=== PATIENT | female | born 1995 | race Caucasian/White ===

== ENCOUNTER 2020-04-11 09:41 | Outpatient (CLI) | payer OTHER, SELFPAY ==
[2020-04-11 10:35] LABS: Basophils Percent Auto 0.3 % (0.2-1.2); Eosinophils Absolute Auto 0.1 K/mm3 (0-0.3); Hematocrit 41.8 % (37.0-47.0); Hemoglobin 14.2 g/dL (12.0-15.0); Immature Granulocyte Absolute 0.03 K/mm3 (0.00-0.031); Immature Granulocyte Percent A 0.4 % (0-0.5); Lymphocytes Absolute Auto 2.19 K/mm3 (0.9-3.2); Lymphocytes Percent Auto 31.9 % (18.3-44.2); Mean Corpuscular Hemoglobin 29.1 pg (26-34); Mean Corpuscular Volume 85.7 fl (80-100); Mean Platelet Volume 11.2 fl (7.4-10.4); Monocytes Absolute Auto 0.5 K/mm3 (0.1-0.6); Monocytes Percent Auto 7.9 % (2.6-8.5); Neutrophils Percent Auto 57.5 % (45.5-73.1); Platelet Count Result 316 k/mm3 (150-375); Red Blood Count 4.88 M/mm3 (4.2-5.4); Red Cell Distribution Width 13.5 % (11.5-14.5); White Blood Count 6.9 K/mm3 (4.5-10.0)
[2020-04-11 10:48] LABS: Alanine Aminotransferase 20 U/L (4-35); Alkaline Phosphatase 75 U/L (38-126); Aspartate Amino Transferase 26 U/L (14-36); Bilirubin,Total 0.7 mg/dL (0.2-1.3); Blood Urea Nitrogen 15 mg/dL (7-17); Calcium 9.2 mg/dL (8.4-10.2); Carbon Dioxide 28 mmol/L (22-30); Chloride 106 mmol/L (98-107); Estimated Glomerular Filt Rate > 60; Glucose 97 mg/dL (65-105); Magnesium 1.7 mg/dL (1.6-2.3); Sodium 138 mmol/L (137-145)
[2020-04-11 11:17] LABS: Thyroid Stimulating Hormone 0.592 uIU/mL (0.465-4.680)
[2020-04-11 11:33] LABS: Hemoglobin A1C 5.2 % (<5.7)
[2020-04-11 12:09] LABS: Free T4 Free Thyroxine 1.33 ng/mL (0.78-2.19)
== END 2020-04-11 09:42 | disposition home or self-care (01) ==
LOC: ANHLAB 09:45
PROVIDERS: PCP Nurse Practitioner Family; Visit Provider Internal Medicine Cardiovascular Disease
DX: R55 Syncope and collapse (principal); R00.2 Palpitations
CPT/HCPCS: 36415; 80053; 83036; 83735; 84439; 84443; 85025

== ENCOUNTER 2020-06-10 07:46 | Outpatient (CLI) | payer OTHER, SELFPAY ==
--- NOTE | 2020-06-27 00:57 | WPDHOMESLEEP ---
Sleep Study - Home Date of Study: 06/10/20 Ordering Provider: Salvador Tuttle MD Interpreting Physician: Taisha Carlisle MD Home Sleep Study Type: Apnea Link Air Height: 1.45 m Weight: 82.1 kg Body Mass Index: 39.2 [place]: 17 Reason for Sleep Study Poor sleep, loud frequent snoring, excessive daytime sleepiness Sleep History Vonda Packer is a 24 year-old female with a history of syncope. She sleeps poorly at night. Even after sleeping a full night, she wakes up tired and is sleepy in the day. This is been going on for more than 2 years. She has a difficult time falling asleep, she wakes up throughout the night and she has a difficult time waking in the morning. She constantly snores and is constantly loud enough that others complain about it. She frequently has trouble sleep with the cold, rarely gasps for breath at night, occasionally has breathing problems at night observed by others. She constantly sweats excessively at night. She occasionally notices her heart pounding or beating her regularly at night. She frequently falls asleep during the day occasionally involuntarily but never while driving. She does not fall asleep during physical effort. She occasionally has loss of muscle tone with strong emotion. 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 She never feels paralyzed on waking or falling asleep. She frequently has vivid dreamlike scenes upon awakening or falling asleep. She is rarely afraid to go to sleep and rarely has nightmares. She frequently remembers her dreams. She constantly has racing thoughts. She occasionally feels sad, depressed or anxious. She occasionally has muscular tension. She frequently notices parts of her body jerking and she frequently kicks at night. She frequently has crawly and aching feelings in her legs. She occasionally has leg pain during the night, occasionally has morning jaw pain. She never grinds her teeth during sleep. She is not bothered by pain during the day and is not awakened by pain at night. She occasionally wakes up feeling stiff in the morning. She does not wake up with sore achy muscles but she frequently wakes up with pain in the neck and spine. She has headaches, palpitations, nightmares, and takes antacids regularly. Normal bedtime is 9:00 p.m. falling asleep within 10 minutes waking 3-4 times at night for brief episode, will look at the clock go back to sleep. She wakes in the morning at 6:30 a.m.. She is usually waking up in the middle of the night. On the weekend she stays up an hour later and wakes in the morning an hour later. She always snores, always has morning headaches, and she always has daytime sleepiness. She frequently has memory and concentration problems and frequently has sexual dysfunction. [facility] Past Medical History Medical History (Updated 06/27/20 @ 01:15 by Taisha Carlisle MD) Asthma Chest pain Heartburn Palpitation Syncope Surgical History Surgical History (Updated 06/27/20 @ 01:22 by Taisha Carlisle MD) S/P S/P tubal ligation Social History Social History (Updated 06/27/20 @ 01:11 by Taisha Carlisle MD) Smoking status: Never smoker Alcohol use details: none at present Medications multivitamin 1 daily omeprazole 40 mg daily Sleep Procedure This test was performed using 4 channel monitoring including respiratory effort channel snoring channel heart rate channel and oxygen saturation channel. This study was scored using [facility] guidelines. Sleep Architecture Not applicable for home sleep test. Respiratory Analysis the duration of the test is 9 hours 11 minutes. The apnea-hypopnea index is 0.5. Oximetry Data Oxygen desaturation index is 0.5. Lowest saturation is 93%. She had no apneas. She had 5 hypopneas. She had 5 desaturations and spent no time below 88%. Snoring Profile Snoring was occasional, 189 even
[2020-06-27 01:05] VITALS: BMI 39.2
== END 2020-06-10 07:47 | disposition home or self-care (01) ==
LOC: ANHCSM 07:46
PROVIDERS: PCP Nurse Practitioner Family; Visit Provider Internal Medicine Cardiovascular Disease
DX: G47.10 Hypersomnia, unspecified (principal)
CPT/HCPCS: 95806

== ENCOUNTER → 2020-10-21 01:18 | Outpatient (CLI) | payer OTHER, SELFPAY ==
[2020-10-21 18:28] LABS: SARS-CoV-2 RNA PCR Negative
== END ==
PROVIDERS: PCP Nurse Practitioner Family; Visit Provider Internal Medicine Critical Care Medicine
DX: R68.89 Other general symptoms and signs (principal); Z20.822 Contact with and (suspected) exposure to COVID-19
CPT/HCPCS: C9803; U0003; U0005

== ENCOUNTER 2020-10-23 09:04 | Outpatient (CLI) | payer OTHER, SELFPAY ==
--- NOTE | 2020-11-11 15:21 | WPDSLEEPSTUD ---
Sleep Study Date of Study: 10/23/20 Ordering Provider: Taisha Carlisle MD Interpreting Physician: Taisha Carlisle MD Sleep Study Type: Polysomnogram Height: 1.5 m Weight: 83.915 kg Body Mass Index: 37.3 Neck Circumference: 35.56 cm [place]: 20 Reason for Sleep Study Excessive daytime sleepiness, Vyvanse for ADHD Home sleep test 06/10/2020 negative for sleep disordered breathing, present now for basic study with MSLT Sleep History oVnda Packer is a 25-year-old female with severe excessive daytime sleepiness, even after a full night of sleep. She wakes up during the night, and she has difficulty waking in the morning. She frequently snores but rarely is it loud enough that others complain about it. She frequently awakens at night with heartburn, belching or coughing. She occasionally awakens from sleep feeling short of breath. She frequently has trouble sleep with a cold. She occasionally wakes up gasping for breath at night. She occasionally has breathing problems at night observed by others. She frequently sweats excessively at night. She occasionally notices her heart pounding or beating irregularly at night. She frequently falls asleep during the day, occasionally involuntarily. She has not fallen asleep while driving but has come close. She does not fall asleep while exerting physical effort. She does not have loss of muscle tone with strong emotion. She constantly has daytime difficulties due to excessive sleepiness. 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 She does not feel paralyzed on waking or falling asleep. She frequently has vivid dreamlike scenes upon awakening or falling asleep. She rarely is afraid to go to sleep. She occasionally has nightmares. She frequently remembers her dreams. She frequently has racing thoughts. She occasionally feels sad or depressed. She frequently has anxiety. She occasionally has muscular tension. She occasionally notices parts of her body jerking. She does not kick at night and does not have crawling or aching feelings in her legs at night. She does not have leg pain at night. She occasionally has morning jaw pain. She does not grind her teeth during sleep. She occasionally is bothered by pain during the day. She never is awakened by pain at night and never wakes up feeling stiff in the morning. She occasionally wakes up with sore achy muscles. She frequently wakes up with pain in the neck and spine. She has panic, memory problems, nightmares and headaches. She has ADHD, takes Vyvanse. Normal bedtime is 9:00 p.m. falling asleep within 10-15 minutes, typically waking 2-3 times. While awake she will get a drink and try to go back to sleep. It takes 5-10 minutes for her to return to sleep. She wakes in the morning at 6:30 a.m.. On the weekend she stays awake until 930 or 10:00 p.m., wakes at 7:30 a.m.. She estimates getting 7 hours of sleep She works a split shift, lives at home with her boyfriend and 2 kids. She takes naps in the afternoon or evening. A short nap is not refreshing. She is usually drowsy in the morning for 3 hours or longer. Habits: There are smoke tobacco. One caffeinated beverage a day. No alcohol or recreational drugs. 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
[2020-11-11 18:02] VITALS: BMI 37.3
--- NOTE | 2020-11-11 18:14 | WPDSLEEPSTUD ---
Sleep Study Date of Study: 10/24/20 Ordering Provider: Taisha Carlisle MD Interpreting Physician: Taisha Carlisle MD Sleep Study Type: Multiple Sleep Latency Test Height: 1.5 m Weight: 83.915 kg Body Mass Index: 37.3 Neck Circumference: 35.56 cm [place]: 20 Reason for Sleep Study Excessive daytime sleepiness Sleep History See sleep history on the basic nocturnal polysomnogram the night before this study. The patient had greater than 6 hours of sleep, AHI was 1.9, and she proceeded to this multiple sleep latency test per protocol. She stopped her Vyvanse 3 days prior to the test. 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 Nap 1 commenced at 7:41 a.m. Sleep onset 13:39. No REM occurred. Nap 1 was terminated at 8:10 a.m. The patient said that sleep did not occur. The patient reported no dreaming. Nap 2 commenced at 9:41 a.m. Sleep onset 7:56. No REM occurred. Nap 2 was terminated at 10:04 a.m. The patient said that sleep occurred. The patient reported no dreaming. Nap 3 commenced at 11:41 a.m. Sleep onset 5:22. No REM occurred. Nap 3 was terminated at 12:02 p.m. The patient said that sleep occurred. The patient reported dreaming. Nap 4 commenced at 1:41 p.m. Sleep onset 12:57. No REM occurred. Nap 4 was terminated at 2:09 p.m. The patient said that sleep did not occur. The patient reported no dreaming. Nap 5 commenced at 3:41 p.m. Sleep did not occur. Sleep latency 20 min. Nap 5 was terminated at 4:01 p.m. The patient said that sleep did not occur. The patient reported no dreaming. The mean sleep latency is 11 min 59 seconds, normal sleep latency. The patient slept on 4 of 5 naps. The patient perceived sleep on 2 of 5 naps and reported dreaming on nap 3. She had no REM sleep on any nap. Sleep Architecture NA Respiratory Analysis NA Arousals NA Periodic Limb Movements NA Oximetry Data NA Snoring Profile NA Cardiac Profile NA EEG Profile NA Assessment and Plan Assessment and Plan (1) Hypersomnolence: Code(s): G47.10 - Hypersomnia, unspecified Status: Acute Assessment and Plan: Patient has hypersomnolence with a normal multiple sleep latency test. The mean sleep latency is 11 minutes 59 seconds. She had sleep on 4/5 naps without sleep onset REM periods. This test does not support of diagnosis of narcolepsy or idiopathic hypersomnolence. She is encouraged to allow time for 7-8 hours of sleep at night, keep a regular schedule, get daytime exercise and maintain a normal BMI. Elevated body mass index can be associated with hypersomnolence in the absence of sleep disordered breathing.
[2020-11-11 18:27] VITALS: BMI 37.3
== END 2020-10-23 09:05 | disposition home or self-care (01) ==
LOC: ANHCSM 09:04
PROVIDERS: PCP Nurse Practitioner Family; Visit Provider Internal Medicine Critical Care Medicine
DX: G47.10 Hypersomnia, unspecified (principal)
CPT/HCPCS: 95805; 95810

== ENCOUNTER 2020-12-27 09:47 | Emergency (ER) | payer OTHER, SELFPAY ==
[2020-12-27 09:53] VITALS: BP 138/88; PULSE 87; RESP 16; TEMP 36.6; O2SAT 98
[2020-12-27 10:00] VITALS: PULSE 90; RESP 16; O2SAT 99
[2020-12-27 10:01] VITALS: BP 122/68; PULSE 79; RESP 20; O2SAT 98
[2020-12-27 10:24] VITALS: PULSE 77; RESP 18; O2SAT 100
--- NOTE | 2020-12-27 10:26 | ED.GENADULT ---
HPI - General Adult General Chief complaint: Head Injury <Orion Corey PA-C - Last Filed: 12/27/20 10:34> Stated complaint: head injury <Orion Corey PA-C - Last Filed: 12/27/20 10:34> Time Seen by Provider: 12/27/20 10:08 <Orion Corey PA-C - Last Filed: 12/27/20 10:34> Source: patient <Orion Corey PA-C - Last Filed: 12/27/20 10:34> Mode of arrival: ambulatory <Orion Corey PA-C - Last Filed: 12/27/20 10:34> Limitations: no limitations <Orion Corey PA-C - Last Filed: 12/27/20 10:34> History of Present Illness HPI narrative: Patient is a 25-year-old female who was struck in the head with a metal spring from a attic stairway that came loose striking her on the parietal scalp patient noted that she did pass out but probably was related to what sounds like a vagal response. Patient has since had mild headache that responds well with ibuprofen. Today had some tingling of the lips which has resolved was instructed to come in for evaluation. Patient presents with normal gait no distress denies anticoagulant use notes minimal headache at this time <Orion Corey PA-C - Last Filed: 12/27/20 10:34> Related Data Home medications: Home Medications Medication Instructions Recorded Confirmed ibuprofen 800 mg tablet 800 mg PO TID 08/27/20 lisdexamfetamine 10 mg capsule 10 mg PO DAILY 08/27/20 <Orion Corey PA-C - Last Filed: 12/27/20 10:34> Allergies/adverse reactions: Allergies Allergy/AdvReac Type Severity Reaction Status Date / Time phentermine Allergy Unknown Verified 12/27/20 10:01 <Orion Corey PA-C - Last Filed: 12/27/20 10:34> Review of Systems Review of Systems: All systems reviewed & are unremarkable except as noted in HPI and below <Orion Corey PA-C - Last Filed: 12/27/20 10:34> PMFSH Past Medical History Medical History: Medical History ADHD Asthma Chest pain Heartburn Migraine Palpitation Second degree AV block Syncope <Orion Corey PA-C - Last Filed: 12/27/20 10:34> Surgical History Surgical History: Surgical History S/P S/P tubal ligation <Orion Corey PA-C - Last Filed: 12/27/20 10:34> Social History Social History: Social History Social History: some history of marijuana Smoking status: Never smoker Alcohol intake: never 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 HEAD: Normocephalic, atraumatic. No deformity on palpation EYES: PERRLA and EOMI. ENT: Nares clear, no rhinorrhea or epistaxis. Mucous membranes moist. NECK: Supple. No adenopathy or masses. CHEST: Clear to auscultation. No respiratory distress. No wheezes rales or rhonchi HEART: Regular rate and rhythm. No murmur heard. EXTREMITIES: Normal range of motion. No edema. No cervical spine tenderness SKIN: Warm, dry, no rash. NEURO: No focal deficits. Alert and oriented x3. Cranial nerves II through XII grossly intact. Normal speech PSYCH: Normal mood and affect. <Orion Corey PA-C - Last Filed: 12/27/20 10:34> Course Course Emergency Course: Patient in the room no distress aware of case findings treatment plan and diagnosis agreeing to follow-up as instructed or to return if symptoms worsen or concerns patient's injury seems minor in nature she is in the room in no distress normal mentation normal speech moves all extremities without difficulty denies any other complaints and is felt appropriate for outpatient reevaluation provided with reasons to return ABCs and vital signs intact and stable <Orion Corey PA-C
[2020-12-27 10:30] VITALS: PULSE 76; RESP 18; O2SAT 100
[2020-12-27 10:31] VITALS: BP 122/75; PULSE 80; RESP 17; O2SAT 100
== END 2020-12-27 10:46 | disposition home or self-care (01) ==
LOC: ANHED 10:35
PROVIDERS: Emergency Provider General Practice; PCP Nurse Practitioner Family
DX: S09.90XA Unspecified injury of head, initial encounter (principal); F90.9 Attention-deficit hyperactivity disorder, unspecified type; J45.909 Unspecified asthma, uncomplicated; W22.8XXA Striking against or struck by other objects, initial encounter
CPT/HCPCS: 99283

== ENCOUNTER → 2021-02-01 06:28 | Outpatient (CLI) | payer OTHER, SELFPAY ==
[2021-02-04 13:07] LABS: SARS-CoV-2 RNA PCR Negative
== END ==
PROVIDERS: PCP Nurse Practitioner Family; Visit Provider Nurse Practitioner Family
DX: Z20.822 Contact with and (suspected) exposure to COVID-19 (principal); R06.00 Dyspnea, unspecified
CPT/HCPCS: C9803; U0003; U0005

== ENCOUNTER 2021-08-25 12:51 | Outpatient (CLI) | payer OTHER, SELFPAY ==
--- NOTE | ~2021-08-25 | XR_ITS ---
EXAMINATION: XR chest 2V 08/25/2021 13:15 INDICATION: Preop. Morbid obesity. Gastric bypass surgery. PROCEDURE: 2 view chest COMPARISON: 01/13/2018 FINDINGS: The lungs are clear. The cardiomediastinal silhouette is within normal limits. There are no pleural effusions. There is no pneumothorax suspected. IMPRESSION: 1: NO ACUTE CARDIOPULMONARY DISEASE. Reviewed, dictated and finalized at location A. DOWN OPERATOR
== END 2021-08-25 12:52 | disposition home or self-care (01) ==
PROVIDERS: PCP Nurse Practitioner Family
DX: Z01.818 Encounter for other preprocedural examination (principal)
CPT/HCPCS: 71046

== ENCOUNTER 2022-01-25 12:09 | Emergency (ER) | payer OTHER, SELFPAY ==
--- NOTE | 2022-01-25 12:18 | ED.FEMALEGU ---
HPI - Female Genitourinary General Chief complaint: Urogenital-Female Stated complaint: uti complaint,nausea Time Seen by Provider: 01/25/22 12:43 Source: patient and RN notes reviewed Mode of arrival: ambulatory Limitations: no limitations History of Present Illness HPI Narrative: 26-year-old female presents with concern for dysuria, nausea, suprapubic pain, low back pain, decreased urination, pain with sex, right low back pain, sweats, thick discolored vaginal discharge, nausea and 4 episodes of vomiting. Reports symptoms started yesterday. She denies fever, chills. Denies abdominal pain or diarrhea MD elicited complaint: dysuria and vaginal discharge Related Data Home Medications Medication Instructions Recorded Confirmed L. gasseri-B. bifidum-B longum 1 cap PO DAILY 01/25/22 01/25/22 [[facility] [employer] [facility]] docusate calcium 1 mg PO DAILY 01/25/22 01/25/22 ergocalciferol (vitamin D2) 1,250 mcg WEEKLY 01/25/22 01/25/22 qwudkvsc-qde-lewk-vitamin K [Adult 1 tablet PO DAILY 01/25/22 01/25/22 Multivitamin with Iron] omeprazole [Prilosec] 40 mg PO DAILY 01/25/22 01/25/22 Allergies Allergy/AdvReac Type Severity Reaction Status Date / Time latex Allergy Rash Verified 01/25/22 12:44 phentermine Allergy Unknown Verified 01/25/22 12:44 Review of Systems Review of Systems: CONSTITUTIONAL: Reports malaise, sweats. Denies chills, fever. CARDIOVASCULAR: Denies chest pain, palpitations, or edema. RESPIRATORY: Denies cough or dyspnea. GASTROINTESTINAL: Denies abdominal pain, diarrhea. Reports nausea, vomiting, GENITOURINARY: Reports dysuria, urgency, suprapubic pressure, right low back pain, abnormal vaginal discharge, dyspareunia SKIN: Denies rash or itching. MUSCULOSKELETAL: Reports right low back pain. Denies myalgia. 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 There is no relevant family history pertinent to the presenting complaint Exam Narrative: GENERAL: Well-appearing, well-nourished, and in no acute distress. HEAD: Normocephalic. EYES: PERRLA, conjunctivae clear. NECK: Supple. No lymphadenopathy CHEST: Clear to auscultation. No respiratory distress. HEART: Regular rate and rhythm. ABDOMEN: Soft, nontender upon palpation, nondistended, normal active bowel sounds, no palpable or pulsatile masses, no guarding. No CVA tenderness SKIN: Warm, dry, no rash. NEURO: Alert and oriented x3. PSYCH: Normal mood and affect : External Female Exam: normal external appearance Speculum Exam - Vagina: normal appearance of the vagina and abnormal vaginal discharge white and malodorous Speculum Exam - Cervix: normal appearance of the cervix Bimanual exam- vagina & uterus: normal bimanual exam Bimanual Exam- Adnexa, other: normal adnexae Course Course Emergency Course: Discussed UA findings with patient, exam findings with patient. Discussed possible diagnoses, will treat for potential BV and potential UTI while pending cultures of vaginal discharge and urine. Advised patient to follow-up with her kick press setter for further evaluation Patient is aware of diagnosis, understands and agrees to treatment plan. Anticipatory guidance given. Patient agrees to follow-up as directed and i
[2022-01-25 12:24] VITALS: BP 118/70; PULSE 76; RESP 18; TEMP 36.6; O2SAT 100
== END 2022-01-25 13:09 | disposition home or self-care (01) ==
PROVIDERS: Emergency Provider Nurse Practitioner; PCP Nurse Practitioner Family
DX: N89.8 Other specified noninflammatory disorders of vagina (principal); R30.0 Dysuria; J45.909 Unspecified asthma, uncomplicated; R12 Heartburn
CPT/HCPCS: 81003; 87070; 87086; 87088; 99214; G0463

== ENCOUNTER 2022-07-03 10:51 | Emergency (ER) | payer OTHER, SELFPAY ==
[2022-07-03 10:58] VITALS: BP 107/69; PULSE 96; RESP 16; TEMP 37.4; O2SAT 99
--- NOTE | 2022-07-03 11:21 | ED.FEMALEGU ---
HPI - Female Genitourinary General Chief complaint: Urogenital-Female Stated complaint: Female Urogenital Time Seen by Provider: 07/03/22 11:21 Source: patient and RN notes reviewed Mode of arrival: ambulatory Limitations: no limitations History of Present Illness HPI Narrative: 26 year female presents for complaint of burning with urination and urinary frequency for the last 3 days. Also started with thick milky white discharge today. She endorses about one week ago she had suprapubic tenderness that radiated to the low back, and pelvic area swelling where she felt that the cervix was going to fall out. Endorses chronic irregular vaginal bleeding, history of tubal ligation. LMP 2 weeks. She denies concern for STD, however she says she cannot be certain. She denies vaginal itching, skin lesions, nausea, vomiting, abdominal pain, flank pain, fevers or chills. Patient underwent gastric bypass 6 months ago, lost 125lbs. Related Data Home Medications Medication Instructions Recorded Confirmed Lactobacills gasseri-Bifidobac 1 cap PO DAILY 01/25/22 01/25/22 bifidum,longum 1.5 billion cell capsule ([employer]) docusate calcium 50 mg capsule 1 mg PO DAILY 01/25/22 01/25/22 ergocalciferol (vitamin D2) 1,250 1,250 mcg WEEKLY 01/25/22 01/25/22 mcg (50,000 unit) capsule multivitamin [id number] 1 tablet PO DAILY 01/25/22 01/25/22 fumarate 18 mg-vitamin K 25 mcg tablet omeprazole 40 mg capsule,delayed 40 mg PO DAILY 01/25/22 01/25/22 release Allergies Allergy/AdvReac Type Severity Reaction Status Date / Time latex Allergy Rash Verified 01/25/22 12:44 phentermine Allergy Unknown Verified 01/25/22 12:44 Review of Systems Review of Systems: CONSTITUTIONAL: Denies body aches, fever, chills, or sweats. CARDIOVASCULAR: Denies chest pain, palpitations, or edema. RESPIRATORY: Denies cough or dyspnea. GASTROINTESTINAL: Denies abdominal pain, nausea, vomiting, or diarrhea. GENITOURINARY: Reports dysuria, frequency, denies urgency, hematuria, flank pain SKIN: Denies rash, itching, or wounds. MUSCULOSKELETAL: Denies back pain or myalgia. 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 Please see nursing chart for further information. There is no relevant family history pertinent to the presenting complaint Exam Narrative: GENERAL: Well-appearing ENT: Mucous membranes pink and moist. CHEST: No respiratory distress. Clear to auscultation. HEART: Regular rate and rhythm. ABDOMEN: Soft, nontender, nondistended, normal active bowel sounds. No CVA tenderness SKIN: Warm, dry, no rash. PSYCH: Normal affect. Course Course Emergency Course: Patient is aware of diagnosis, understands and agrees to treatment plan. Anticipatory guidance given. Patient agrees to follow-up as directed and is aware of reasons to seek care at the emergency department. Portions of this record may have been created with voice recognition software Level of Care: Express Care Visit Vital Signs Vital signs: Vital Signs Temperature 99.3 F 07/03/22 10:58 Pulse Rate 96 07/03/22 10:58 Respiratory Rate 16 07/03/22 10:58 Blood Pressure 107/69 07/03/22 10:58 Pulse Oximetry 99 07/03/22 10:58 Oxygen De
== END 2022-07-03 11:39 | disposition home or self-care (01) ==
PROVIDERS: Emergency Provider Nurse Practitioner Family; PCP Nurse Practitioner Family
DX: N39.0 Urinary tract infection, site not specified (principal); J45.909 Unspecified asthma, uncomplicated
CPT/HCPCS: 81003; 87086; 87491; 87591; 87661; 99214; G0463

== ENCOUNTER 2022-09-03 08:30 | Outpatient (CLI) | payer OTHER, SELFPAY ==
[2022-09-03 09:16] LABS: Basophils Percent Auto 0.7 % (0.2-1.2); Eosinophils Absolute Auto 0.1 K/mm3 (0-0.3); Eosinophils Percent Auto 1.4 % (0-4.4); Hematocrit 41.5 % (37.0-47.0); Hemoglobin 13.5 g/dL (12.0-15.0); Immature Granulocyte Absolute 0.02 K/mm3 (0.00-0.031); Immature Granulocyte Percent A 0.4 % (0-0.5); Lymphocytes Percent Auto 29.8 % (18.3-44.2); Mean Corpuscular HGB Conc 32.5 g/dl (32-36); Mean Corpuscular Hemoglobin 29.5 pg (26-34); Mean Corpuscular Volume 90.6 fl (80-100); Mean Platelet Volume 11.5 fl (7.4-10.4); Monocytes Absolute Auto 0.4 K/mm3 (0.1-0.6); Monocytes Percent Auto 6.7 % (2.6-8.5); Neutrophils Absolute Auto 3.5 K/mm3 (1.3-6.7); Platelet Count Result 251 k/mm3 (150-375); Red Blood Count 4.58 M/mm3 (4.2-5.4); Red Cell Distribution Width 13.9 % (11.5-14.5); White Blood Count 5.7 K/mm3 (4.5-10.0)
[2022-09-03 09:21] LABS: Alanine Aminotransferase 25 U/L (6-35); Albumin Level 4.2 g/dL (3.5-5.1); Alkaline Phosphatase 46 U/L (38-126); Anion Gap 6 mmol/L (8-16); Aspartate Amino Transferase 27 U/L (14-36); Bilirubin,Total 1.5 mg/dL (0.2-1.3); Blood Urea Nitrogen 14 mg/dL (7-17); Calcium 8.9 mg/dL (8.4-10.2); Carbon Dioxide 28 mmol/L (22-30); Chloride 105 mmol/L (98-107); Cholesterol 149 mg/dL (0-200); Estimated Glomerular Filt Rate > 60; Glucose 85 mg/dL (65-110); HDL Direct 54 mg/dL; Magnesium 1.8 mg/dL (1.6-2.3); Phosphorus 4.2 mg/dL (2.5-4.5); Potassium 4.1 mmol/L (3.4-5.0); Sodium 139 mmol/L (137-145); Triglycerides 84 mg/dL (<150)
[2022-09-03 09:32] LABS: LDL Cholesterol Direct 55 mg/dL; Prealbumin 19.4 mg/dL (17.6-36.0)
[2022-09-03 09:45] LABS: Vitamin D 25 Hydroxy 45.2 ng/mL
[2022-09-03 10:15] LABS: Iron 95 ug/dL (37-170); Percent Iron Saturation 34 % (20-50)
[2022-09-07 07:21] LABS: Vitamin B1 26 nmol/L (8-30)
== END 2022-09-03 08:31 | disposition home or self-care (01) ==
LOC: ANHLAB 08:35
PROVIDERS: PCP Nurse Practitioner Family
DX: Z01.818 Encounter for other preprocedural examination (principal); K90.9 Intestinal malabsorption, unspecified; Z98.84 Bariatric surgery status; E61.1 Iron deficiency; Z86.39 Personal history of other endocrine, nutritional and metabolic disease
CPT/HCPCS: 36415; 80053; 80061; 82306; 82607; 82728; 82746; 83540; 83550; 83735; 83970; 84100; 84134; 84425; 85025

== ENCOUNTER 2022-09-08 15:56 | Outpatient (CLI) | payer OTHER, SELFPAY ==
[2022-09-08 17:53] LABS: Transferrin 235 mg/dL (206-381)
== END 2022-09-08 15:57 | disposition home or self-care (01) ==
PROVIDERS: PCP Nurse Practitioner Family; Referring Provider Nurse Practitioner Family
DX: E61.1 Iron deficiency (principal); K90.9 Intestinal malabsorption, unspecified; Z98.84 Bariatric surgery status; Z86.39 Personal history of other endocrine, nutritional and metabolic disease
CPT/HCPCS: 36415; 84466

== ENCOUNTER 2022-11-21 19:21 | Emergency (ER) | payer OTHER, SELFPAY ==
--- NOTE | ~2022-11-21 | CT_ITS ---
CT of the Abdomen and Pelvis: Indication: Abdominal pain Technique: 2.5 mm axial scans were obtained through the abdomen and pelvis following intravenous adm inistration of 100 cc of Omnipaque 350. Dose reduction technique was used on this scan by utilizing a utomated exposure control and iterative reconstruction technique. The dose-length product (DLP) was 1 89.13 mGy-cm. Findings: Scans through the lung bases are unremarkable. The liver, spleen, pancreas, gallbladder, adrenals and kidneys are within normal limits. No evidence of aortic aneurysm. No lymphadenopathy. No bowel obstruction or bowel wall thickening. There is no evidence to suggest acute appendicitis. Pr obable prior bariatric surgery. Images through the pelvis were performed. Urinary bladder unremarkable. No adnexal mass evident. No a scites. Impression: No acute abnormalities seen. Evidence of prior presumed bariatric surgery. Reviewed, dictated and finalized at [facility]. SPOOLER Impression: No acute abnormalities seen. Evidence of prior presumed bariatric surgery.
[2022-11-21 19:30] VITALS: BP 116/78; PULSE 74; RESP 14; TEMP 36.9; O2SAT 100
[2022-11-21] MEDS: SODIUM CHLORIDE 0.9% IV 1,000 ML 999 ML IV CONT (20:11)
[2022-11-21] MEDS: KETOROLAC 30 MG/ML VIAL (*BKC) IV PUSH (20:12)
[2022-11-21 20:16] LABS: Appearance Urine Cloudy (Clear); Bacteria Urine 2+ /hpf; Basophils Percent Auto 0.4 % (0.2-1.2); Bilirubin Urine Negative (Negative); Blood Urine Negative (Negative); Color Urine Yellow (Yellow); Eosinophils Absolute Auto 0.1 K/mm3 (0-0.3); Eosinophils Percent Auto 1.4 % (0-4.4); Glucose Urine UA Negative (Negative); Hematocrit 36.2 % (37.0-47.0); Immature Granulocyte Absolute 0.02 K/mm3 (0.00-0.031); Immature Granulocyte Percent A 0.2 % (0-0.5); Ketones Urine Trace mg/dL (Negative); Leukocyte Esterase Ur Negative LEU/UL (Negative); Lymphocytes Absolute Auto 2.38 K/mm3 (0.9-3.2); Lymphocytes Percent Auto 29.6 % (18.3-44.2); Mean Corpuscular HGB Conc 33.1 g/dl (32-36); Mean Corpuscular Hemoglobin 30.6 pg (26-34); Mean Corpuscular Volume 92.3 fl (80-100); Mean Platelet Volume 10.6 fl (7.4-10.4); Monocytes Absolute Auto 0.6 K/mm3 (0.1-0.6); Monocytes Percent Auto 7.2 % (2.6-8.5); Neutrophils Absolute Auto 4.9 K/mm3 (1.3-6.7); Neutrophils Percent Auto 61.2 % (45.5-73.1); Nitrate Urine Negative (Negative); Non Pathogenic Casts 0-2; Platelet Count Result 235 k/mm3 (150-375); Protein Urine Negative (Negative); RBC Urine 0-2 /hpf (0-2); Red Blood Count 3.92 M/mm3 (4.2-5.4); Red Cell Distribution Width 13.3 % (11.5-14.5); Squamous Epithelial Cell Urine Moderate /hpf (Few); WBC Urine 0-5 /hpf; pH Urine 6.5 (5.0-9.0)
[2022-11-21 20:20] LABS: Add Urine Microscopic? YES
[2022-11-21 20:26] LABS: Alanine Aminotransferase 24 U/L (6-35); Albumin Level 3.6 g/dL (3.5-5.1); Alkaline Phosphatase 56 U/L (38-126); Anion Gap 2 mmol/L (8-16); Aspartate Amino Transferase 24 U/L (14-36); Bilirubin,Total 0.9 mg/dL (0.2-1.3); Blood Urea Nitrogen 16 mg/dL (7-17); Calcium 7.9 mg/dL (8.4-10.2); Carbon Dioxide 29 mmol/L (22-30); Chloride 108 mmol/L (98-107); Estimated Glomerular Filt Rate > 60; Glucose 84 mg/dL (65-110); Lipase 94 U/L (23-300); Potassium 3.5 mmol/L (3.4-5.0); Sodium 139 mmol/L (137-145)
--- NOTE | 2022-11-21 20:38 | PC.NURSE ---
Patient taken to CT at this time.
[2022-11-21 21:06] VITALS: BP 101/70; PULSE 78; RESP 17; TEMP 36.4; O2SAT 100
--- NOTE | 2022-11-21 21:13 | PC.NURSE ---
Patient states itching from CT contrast, denies any sob, cp, or hives. No hives noted. ERP notified, orders received.
[2022-11-21] MEDS: diphenhydrAMINE HCl INJ 50 MG/ML VIAL 25 MG IV PUSH (21:20)
--- NOTE | 2022-11-21 21:33 | ED.GENADULT ---
HPI - General Adult General Chief complaint: Abdominal Pain Stated complaint: pain in ovaries, fever, N/V Time Seen by Provider: 11/21/22 19:59 Source: RN notes reviewed History of Present Illness HPI narrative: Patient presents emergency department from home for abdominal pain. Patient states that pain began earlier today. The pain is located in the left lower quadrant does not radiate. States the pain is described as sharp and stabbing. Patient states pain is associate with nausea and vomiting as well as a fever that she had earlier today states that she did take Tylenol at home earlier with some relief. Patient states she has a history of of recurrent ovarian cyst and is followed by Dr. Garcia and supposed be getting a hysterectomy secondary to recurrent pain. She states that she has had no vaginal bleeding she notes some small amount of white discharge but that is unchanged from prior she denies any risk of sexually transmitted disease Related Data Home Medications Medication Instructions Recorded Confirmed multivitamin b-fkkpfwsi-dqduked 1 tablet PO DAILY 01/25/22 11/20/22 fumarate 18 mg-vitamin K 25 mcg tablet calcium carbonate 500 mg calcium 500 mg PO TID 11/20/22 11/20/22 (1,250 mg) tablet Allergies Allergy/AdvReac Type Severity Reaction Status Date / Time latex Allergy Rash Verified 11/21/22 20:14 phentermine Allergy Unknown Verified 11/21/22 20:14 Review of Systems Review of Systems: Gen.: Denies fevers or chills ENT: Denies congestion Respiratory: Denies shortness of breath or cough CV: Denies chest pain or palpitations GI: See HPI denies burning, urgency, frequency or hematuria Musculoskeletal: Denies back pain or muscle pain Neuro: Denies numbness, tingling, weakness or focal weakness Skin: Denies rash Except as documented, all other systems reviewed and negative [facility] Past Medical History Medical History ADHD Asthma Chest pain Heartburn Migraine Palpitation Second degree AV block Syncope Surgical History Surgical History S/P S/P tubal ligation Social History Social History Social History: some history of marijuana Smoking status: Never smoker Alcohol intake: never Alcohol use details: none at present Substance use: current Substance use type: marijuana Living arrangements: with family Additional living arrangements comments: CHILDREN Occupation/Education: occupation 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 CARDIOVASCULAR: Regular rate and rhythm without murmurs rubs or gallops. ABDOMINAL: Soft, no tenderness in the right lower quadrant, right upper quadrant and left upper quadrant no rebound or guarding nondistended, tender to palpation in the left lower quadrant : Normal external exam minimal amount of whitish discharge in vaginal canal no vaginal bleeding, cervix closed, left adnexal tenderness no right adnexal tenderness no cervical motion tenderness MUSCULOSKELETAl: Moves all extremities. No clubbing, cyanosis or edema. NEURO: Awake and alert. Following commands, speech normal, no focal deficits SKIN:: Warm, dry. No rashes lesions or abrasions PSYCHIATRIC: Normal affect/mood, Course Course Emergency Course: Patient states that they are feeling much better at this time. States abdominal pain has resolved. Repeat abdominal exam shows the patient's abdomen to be soft and nontender. Discussed with patient results of workup and diagnosis. Discussed need for follow-up with primary care physician, reason
[2022-11-21] MEDS: NITROFURANTOIN MONOHYD MACROCR 100 MG CAP PO (21:39)
== END 2022-11-21 21:47 | disposition home or self-care (01) ==
PROVIDERS: Emergency Provider Emergency Medicine; PCP Nurse Practitioner Family
DX: N39.0 Urinary tract infection, site not specified (principal); R10.32 Left lower quadrant pain; F90.9 Attention-deficit hyperactivity disorder, unspecified type; J45.909 Unspecified asthma, uncomplicated
CPT/HCPCS: 36415; 74177; 80053; 81001; 81025; 83690; 85025; 87070; 87491; 87591; 87808; 96361; 96374; 96375; 99284; A9270; J1200; J1885; J7030; Q9967

== ENCOUNTER 2022-11-27 13:48 | Outpatient (CLI) | payer OTHER, SELFPAY ==
[2022-11-27 14:29] LABS: Alanine Aminotransferase 27 U/L (6-35); Albumin Level 4.1 g/dL (3.5-5.1); Alkaline Phosphatase 61 U/L (38-126); Anion Gap 4 mmol/L (8-16); Aspartate Amino Transferase 26 U/L (14-36); Bilirubin,Total 0.7 mg/dL (0.2-1.3); Blood Urea Nitrogen 15 mg/dL (7-17); Calcium 8.6 mg/dL (8.4-10.2); Carbon Dioxide 31 mmol/L (22-30); Chloride 101 mmol/L (98-107); Estimated Glomerular Filt Rate > 60; Glucose 86 mg/dL (65-110); Sodium 136 mmol/L (137-145)
== END 2022-11-27 13:49 | disposition home or self-care (01) ==
PROVIDERS: PCP Nurse Practitioner Family; Visit Provider Obstetrics & Gynecology
DX: I44.1 Atrioventricular block, second degree (principal); N92.0 Excessive and frequent menstruation with regular cycle; Z01.818 Encounter for other preprocedural examination
CPT/HCPCS: 36415; 80053; 86850; 86900; 86901

== ENCOUNTER 2022-11-30 10:16 | Emergency (ER) | payer OTHER, SELFPAY ==
--- NOTE | ~2022-11-30 | CT_ITS ---
EXAMINATION: CT abdomen pelvis wo con DATE: 11/30/2022 14:35 INDICATION: Abdominal pain, nausea, vomiting. Gastric bypass surgery last year. Epigastric pain radia ting to back and both sides. TECHNIQUE: Computed tomography (CT) of the abdomen and pelvis was performed without intravenous contr ast (patient contrast medium allergy). (Automated exposure control and iterative reconstruction techn ique were employed. Exam dose: 185.28 mGy-cm total exam DLP. COMPARISON: 11/21/2022 CT abdomen pelvis FINDINGS: The lung bases are clear. Normal heart size. No pericardial or pleural effusion. Status post gastric bypass surgery. There is a prominent amount of fecal material within the colon but no evidence of bowel obstruction, bowel wall thickening, pneumatosis or intraperitoneal free air. The gallbladder is distended. Right hepatic cyst appears stable. No bile duct or pancreatic duct dilatation. No pancreatic mass les ion or calcification. Normal splenic size. Normal morphology of the adrenal glands. No renal mass lesion or urinary tract calculus or hydroureteronephrosis is detected. Normal caliber of the abdominal aorta. No intraperitoneal or retroperitoneal or pelvic mass lesion or adenopathy or ascites. No suspicious osteolytic or osteoblastic lesions. IMPRESSION: Status post gastric bypass surgery; no significant abnormality Reviewed, dictated and finalized at [facility]. Reviewed, dictated and finalized at [facility].
[2022-11-30 11:08] VITALS: BP 117/65; PULSE 70; RESP 16; TEMP 37.1; O2SAT 96
[2022-11-30 11:39] LABS: Basophils Percent Auto 0.2 % (0.2-1.2); Eosinophils Percent Auto 0.5 % (0-4.4); Hematocrit 40.4 % (37.0-47.0); Hemoglobin 13.3 g/dL (12.0-15.0); Immature Granulocyte Absolute 0.02 K/mm3 (0.00-0.031); Immature Granulocyte Percent A 0.2 % (0-0.5); Lymphocytes Absolute Auto 1.54 K/mm3 (0.9-3.2); Lymphocytes Percent Auto 17.5 % (18.3-44.2); Mean Corpuscular HGB Conc 32.9 g/dl (32-36); Mean Corpuscular Hemoglobin 30.4 pg (26-34); Mean Corpuscular Volume 92.4 fl (80-100); Mean Platelet Volume 10.3 fl (7.4-10.4); Monocytes Absolute Auto 0.3 K/mm3 (0.1-0.6); Monocytes Percent Auto 3.5 % (2.6-8.5); Neutrophils Absolute Auto 6.9 K/mm3 (1.3-6.7); Neutrophils Percent Auto 78.1 % (45.5-73.1); Platelet Count Result 290 k/mm3 (150-375); Red Blood Count 4.37 M/mm3 (4.2-5.4); Red Cell Distribution Width 13.3 % (11.5-14.5); White Blood Count 8.8 K/mm3 (4.5-10.0)
[2022-11-30 11:48] LABS: Appearance Urine Turbid (Clear); Bacteria Urine 1+ /hpf; Bilirubin Urine Negative (Negative); Blood Urine Negative (Negative); Color Urine Yellow (Yellow); Glucose Urine UA Negative (Negative); Ketones Urine Negative (Negative); Leukocyte Esterase Ur Negative LEU/UL (Negative); Nitrate Urine Negative (Negative); Non Pathogenic Casts 0-2; Protein Urine Negative (Negative); RBC Urine 0-2 /hpf (0-2); Specific Grav Ur 1.024 (1.001-1.035); Squamous Epithelial Cell Urine Occasional /hpf (Few); WBC Urine 0-5 /hpf; pH Urine 7.5 (5.0-9.0)
[2022-11-30 11:49] LABS: Alanine Aminotransferase 31 U/L (6-35); Albumin Level 4.1 g/dL (3.5-5.1); Alkaline Phosphatase 53 U/L (38-126); Anion Gap 4 mmol/L (8-16); Aspartate Amino Transferase 27 U/L (14-36); Blood Urea Nitrogen 19 mg/dL (7-17); Carbon Dioxide 30 mmol/L (22-30); Chloride 104 mmol/L (98-107); Estimated Glomerular Filt Rate > 60; Glucose 94 mg/dL (65-110); Lipase 61 U/L (23-300); Potassium 4.4 mmol/L (3.4-5.0); Sodium 138 mmol/L (137-145)
[2022-11-30 11:56] LABS: Add Urine Microscopic? YES
[2022-11-30 14:00] VITALS: BP 118/76; PULSE 70; RESP 16; O2SAT 100
[2022-11-30] MEDS: MORPHINE SULFATE (*CRX) 4 MG/ML INJ IV PUSH (14:14)
[2022-11-30] MEDS: ONDANSETRON INJ 4 MG/2 ML VIAL IV PUSH (14:14)
--- NOTE | 2022-11-30 14:20 | ED.ABDPAIN ---
HPI - Abdominal Pain General Chief Complaint: Abdominal Pain Stated Complaint: my doctor sent me for stomach issues Time Seen by Provider: 11/30/22 13:04 History of Present Illness HPI narrative: Patient with history of gastric bypass surgery done 1 year ago presenting with severe epigastric abdominal pain that started this morning, accompanied by nausea and vomiting. Related Data Home Medications Medication Instructions Recorded Confirmed multivitamin [id number]-rvipqxb 1 tablet PO DAILY 01/25/22 11/20/22 fumarate 18 mg-vitamin K 25 mcg tablet calcium carbonate 500 mg calcium 500 mg PO TID 11/20/22 11/20/22 (1,250 mg) tablet Allergies Allergy/AdvReac Type Severity Reaction Status Date / Time latex Allergy Rash Verified 11/21/22 20:14 phentermine Allergy Unknown Verified 11/21/22 20:14 Review of Systems Review of Systems: CONST: No fever. HEENT: No sore throat C/V: No chest pain RESP: No cough GI: Reports abdominal pain, nausea, vomiting : No dysuria. M/S: No joint pain. SKIN: No rash. NEURO: [No headache or focal numbness or weakness] PSYCH: [No depression] [facility] Past Medical History Medical History ADHD Asthma Chest pain Heartburn Migraine Palpitation Second degree AV block Syncope Surgical History Surgical History S/P S/P tubal ligation Social History Social History Social History: some history of marijuana Smoking status: Never smoker Alcohol intake: never Alcohol use details: none at present Substance use: current Substance use type: marijuana Living arrangements: with family Additional living arrangements comments: CHILDREN Occupation/Education: occupation 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 EYES: EOMI, conjunctiva normal ENT: Hearing grossly intact LUNGS: Nonlabored breathing. HEART: [Regular rate and rhythm] ABD: [Soft], [mildly tender to palpation epigastric] EXT: Normal range of motion SKIN: [No rashes or lesions.] NEURO: [Alert and oriented x 3. No gross focal sensory or strength deficits.] PSYCH: Normal affect Course Vital Signs Vital signs: Vital Signs Temperature 98.7 F 11/30/22 11:08 Pulse Rate 70 11/30/22 11:08 Respiratory Rate 16 11/30/22 11:08 Blood Pressure 117/65 11/30/22 11:08 Pulse Oximetry 96 11/30/22 11:08 Oxygen Delivery Room Air 11/30/22 11:08 Temperature 98.7 F 11/30/22 11:08 Pulse Rate 80 11/30/22 16:00 Respiratory Rate 16 11/30/22 16:00 Blood Pressure 112/76 11/30/22 16:00 Pulse Oximetry 100 11/30/22 16:00 Oxygen Delivery Room Air 11/30/22 11:08 MDM - Abdominal Pain MDM Narrative Medical decision making narrative: Electronic medical record was reviewed. Patient presented to the ED with complaint of [abdominal pain and vomiting]. Vitals [were within acceptable limits]. Physical exam revealed [tenderness to palpation epigastric]. Based on the patient's history and physical exam, my differential includes but is not limited to [gastritis, gastroenteritis, cholecystitis, pancreatitis, possible leakage or other complication from gastric bypass]. [IV access was established by nursing staff. Patient was given zofran, morphine, fluids]. CBC, BMP, lipase, LFTs, bilirubin and alk phos were obtained. Labs were pertinent for labs within acceptable limit. [Decision was made to obtain a CT-abdomen to evaluate for acute abdominal process. CT-abdomen is unremarkable for acute intra-abdominal process.] On reevaluation, the patient states that they are feeling much better. She now adm
[2022-11-30] MEDS: LACTATED RINGERS 1,000 ML 999 ML IV CONT (15:23)
[2022-11-30 16:00] VITALS: BP 112/76; PULSE 80; RESP 16; O2SAT 100
[2022-11-30] MEDS: PANTOPRAZOLE SODIUM IV 40 MG VIAL IV PUSH (16:01)
== END 2022-11-30 16:00 | disposition home or self-care (01) ==
PROVIDERS: Emergency Provider Emergency Medicine; PCP Nurse Practitioner Family
DX: R11.2 Nausea with vomiting, unspecified (principal); R10.13 Epigastric pain; F90.9 Attention-deficit hyperactivity disorder, unspecified type; J45.909 Unspecified asthma, uncomplicated
CPT/HCPCS: 36415; 74176; 80053; 81001; 81025; 83690; 85025; 96361; 96374; 96375; 99284; C9113; J2270; J2405; J7120

== ENCOUNTER 2022-12-05 10:01 | Observation (INO) | payer OTHER, SELFPAY ==
--- NOTE | 2022-11-20 12:10 | PC.NURSE ---
Report to the Outpatient Waiting Room, entrance under the green pavilion located off [facility], at time 6:00 on date 12/04/22. Planned Procedure Time: 7:30. Time changes happen often and if your time is changed the preop area will call you the afternoon before. - You and your visitor will be asked to self-screen and do not enter if you have any COVID symptoms. - Only one visitor is requested with a max of two and NO children visitors are allowed at this time. - The patient visitor may be requested to leave or wait in car when not with patient due to distancing restrictions. - A mask is optional within the hospital at this time. Patients may have clear liquids (water, carbonated beverages, clear teas, apple juice) until 3 hours prior to surgery (4:30) with a maximum of 20 ounces. - No food from midnight until time of surgery Take the following medications with a SIP of water the morning of surgery: NONE DO NOT STOP ANY OF YOUR OTHER PRESCRIPTION MEDICATIONS PRIOR TO SURGERY EXCEPT THE FOLLOWING Medications to discontinue per physician: VITAMINS/SUPPLEMENTS Date to take last dose: 11/30/22 Please no make-up, nail samoan, hairspray, perfume, deodorant, or body powder the day of surgery. No jewelry (including any body piercings) or valuables the day of surgery, leave them at home. Please take a shower or bath the night before, or the morning of, surgery with an antibacterial soap. Wear comfortable, loose fitting clothing. - Jewelry must be removed prior to entering the operating room. Rings and piercings that are not removed may be cut off. - The hospital will not accept responsibility for valuables. - Please leave all valuables, including medications, at home the day of surgery. If you are going home after surgery, a licensed stock car driver must drive you home. - NO public transportation without another adult if you receive anesthesia. - We recommend that an adult stay with you for 24 hours following discharge. - We also recommend that you do not drive, make important decision, drink alcoholic beverages, or take any drugs that were not prescribed by your health care provider for at least 24 hours after your discharge time. Follow any additional instructions given to you from your surgeon. If you or anyone in your household have experienced Covid symptoms in the past week, please notify your surgeon or the nurse liaison at the phone number below for possible testing. Telephone instructions given to PT - MARIXA PICHARDO and asked if any additional questions and then verbalized understanding. Patient advised to call surgeon office or pre surgery nurse liaison [phone] if any additional questions.
[2022-12-04] VITALS (16 sets, daily range): BP systolic 94–116; BP diastolic 52–76; PULSE 52–94; RESP 12–18; TEMP 36.2–37.5; O2SAT 98–100
[2022-12-04] MEDS: ACETAMINOPHEN 500 MG TABLET 1000 MG PO (06:14)
[2022-12-04] MEDS: LACTATED RINGERS 1,000 ML 30 ML IV CONT ×2 (06:30→08:46)
[2022-12-04] MEDS: KETOROLAC 15 MG/ML VIAL (*BKC) IV PUSH (06:35)
--- NOTE | 2022-12-04 07:13 | WPDHPUPDATE1 ---
History and Physical Update Update Date/Time: 12/04/22 07:13 History and Physical has been reviewed, including an updated exam of the patient. There are NO changes in the patient's condition. Risks, benefits, and alternatives have been discussed and questions answered. Patient agrees to proceed with procedure.
[2022-12-04] MEDS: ceFAZolin 2 GM/D5W 50 ML 2 GM/50 ML BAG IVPB (07:30)
--- NOTE | 2022-12-04 08:06 | WPDANESEPPF ---
Anes - Initial Pre Proc Eval Procedure: Operation Date: 12/04/22 07:30 Proposed Procedures p Robotic Assisted Hysterectomy with Bilateral Salpingectomy - Jean Garcia MD Date/Time: 12/04/22 08:06 Surgeon: Jean Garcia MD Pre Op Diagnosis: Menorrhagia Patient Data Age: 27 Gender: F Height: 1.5 m Weight: 46.4 kg Last Vital Signs Temp 36.6 C 12/04/22 06:36 Pulse 66 12/04/22 06:36 Resp 16 12/04/22 06:36 BP 108/57 L 12/04/22 06:36 Pulse Ox 100 12/04/22 06:36 O2 Del Method Room Air 12/04/22 06:36 Allergies Allergy/AdvReac Type Severity Reaction Status Date / Time latex Allergy Rash Verified 12/04/22 06:09 phentermine Allergy Unknown Verified 12/04/22 06:09 Home Medications Medication Instructions Recorded Confirmed Type multivitamin q-sfwexraw-iepmidq 1 tablet PO DAILY 01/25/22 12/04/22 History fumarate 18 mg-vitamin K 25 mcg tablet calcium carbonate 500 mg calcium 500 mg PO TID 11/20/22 12/04/22 History (1,250 mg) tablet ondansetron 4 mg disintegrating 4 mg PO Q8H PRN nausea and 11/30/22 12/04/22 Rx tablet vomiting #10 tabs omeprazole 40 mg capsule,delayed 40 mg PO BID 12/04/22 12/04/22 History release Patient hx anesthesia problems: none Family hx anesthesia problems: none Results Review: All pre-operative results and documents have been reviewed as part of the pre-operative evaluation. 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 Informed Consent: The patient's anesthetic plan and its attendant risks and benefits were discussed with the patient/family/POA. Questions were solicited and answers provided to the satisfaction of the patient/family/POA.
[2022-12-04] MEDS: metroNIDAZOLE 500 MG/ISO 100ML 500 MG/100 ML BAG 100 MG IVPB ×2 (08:13→20:34)
[2022-12-04] MEDS: cefTRIAXone 2 GM/NS 100 ML 2 GM/100 ML BAG IVPB ×2 (08:21→21:34)
[2022-12-04] MEDS: ceFAZolin SODIUM 1 GM VIAL (08:53)
--- NOTE | 2022-12-04 09:00 | W.PM.PROC2 ---
Procedure Note - Detailed Date of Procedure 12/04/22 Pre-op Diagnosis Menorrhagia Post-op Diagnosis Same Procedure Performed Diagnostic laparoscopy. Surgeon Jean Garcia MD Anesthesia General Indications menorrhagia Findings mary pus in the pelvis, pools purulent fluid in the posterior cul-de-sac and around the adnexa. Upper abdomen could not be examined. ovaries and tubes appeared normal. Uterus appears normal. Description of Procedure This patient was taken to the operating room. She was prepped and draped in the dorsal lithotomy position after induction of general anesthesia. The uterine manipulator and Vel cup were placed. This was done with a speculum and tenaculum. The speculum was placed. The cervix was grasped with a tenaculum. The stay sutures were placed at 3 and 9:00 a.m.. The stay sutures of 0 Vicryl were tied to the appropriately Size scope after it was slipped around the cervix.. The tip of the RA manipulator was placed in the intrauterine cavity. The cup was slid into place around the cervix and into the fornices. It was locked into place. The sutures were then wrapped around the handle and tied under tension. A 8 mm skin incision was made in the left upper quadrant the abdomen. a 5 mm Visiport trocar was inserted into abdominal cavity and pneumoperitoneum was achieved. A 8 mm supraumbilical incision was made and a 8 mm trocar was inserted into the intrauterine cavity under direct visualization of the scope. an 8 mm incision was made in the right upper quadrant of the abdomen and an 8 mm robotic trocar was placed the inter uterine cavity under direct visualization the scope. An 11 mm trocar was inserted in the right upper quadrant of the abdomen after an incision was made there as well. examination of the pelvis revealed a mary pus purulent fluid. Within the pelvis, pooling in the posterior cul-de-sac and around the adnexa. The pus was suctioned out. Antibiotic years occasion was then used to lavage the pelvis. Copious antibiotic irrigation was used. Care was used to not get it into the upper abdomen. Cultures were obtained. Pelvic exam was performed and cervical culture was obtained as well. Trocars were removed after the scopes were removed and The skin was closed with subcuticular 3-0 Vicryl and Dermabond. The patient was taken to recovery room. She was stable condition. Sponge lap and needle counts were correct x2. Estimated Blood Loss -5.0 Urine Output -25.0 Drains Yes Packing No Pathology Yes Complications No immediate complications Condition Stable Disposition Floor
--- NOTE | 2022-12-04 11:32 | PC.NURSE ---
This patient, Vonda Packer, was received from [post op ] on 12/04/22 at 1130. Patient/family oriented to unit policies and routines
[2022-12-04 11:55] LABS: Basophils Percent Auto 0.3 % (0.2-1.2); Eosinophils Percent Auto 0.3 % (0-4.4); Hematocrit 42.4 % (37.0-47.0); Hemoglobin 13.2 g/dL (12.0-15.0); Immature Granulocyte Absolute 0.04 K/mm3 (0.00-0.031); Immature Granulocyte Percent A 0.3 % (0-0.5); Lymphocytes Absolute Auto 0.88 K/mm3 (0.9-3.2); Lymphocytes Percent Auto 7.5 % (18.3-44.2); Mean Corpuscular HGB Conc 31.1 g/dl (32-36); Mean Corpuscular Hemoglobin 29.9 pg (26-34); Mean Corpuscular Volume 96.1 fl (80-100); Mean Platelet Volume 10.8 fl (7.4-10.4); Monocytes Absolute Auto 0.1 K/mm3 (0.1-0.6); Monocytes Percent Auto 1.1 % (2.6-8.5); Neutrophils Absolute Auto 10.7 K/mm3 (1.3-6.7); Neutrophils Percent Auto 90.5 % (45.5-73.1); Platelet Count Result 247 k/mm3 (150-375); Red Blood Count 4.41 M/mm3 (4.2-5.4); Red Cell Distribution Width 13.1 % (11.5-14.5); White Blood Count 11.8 K/mm3 (4.5-10.0)
[2022-12-04 12:31] LABS: Alanine Aminotransferase 23 U/L (6-35); Albumin Level 3.7 g/dL (3.5-5.1); Alkaline Phosphatase 52 U/L (38-126); Anion Gap 8 mmol/L (8-16); Aspartate Amino Transferase 27 U/L (14-36); Bilirubin,Total 0.7 mg/dL (0.2-1.3); Blood Urea Nitrogen 15 mg/dL (7-17); Calcium 8.9 mg/dL (8.4-10.2); Carbon Dioxide 22 mmol/L (22-30); Chloride 108 mmol/L (98-107); Estimated Glomerular Filt Rate > 60; Glucose 99 mg/dL (65-110); Potassium 4.5 mmol/L (3.4-5.0); Sodium 138 mmol/L (137-145)
--- NOTE | ~2022-12-05 | US_ITS ---
EXAMINATION: US right upper quadrant DATE: 12/04/2022 10:01 INDICATION: Right upper quadrant pain TECHNIQUE: Multiple grayscale and Doppler ultrasound images of the abdomen were obtained. COMPARISON: CT, 11/30/2022 FINDINGS: The head and body of the pancreas are normal. The pancreatic tail is obscured by bowel gas. There is a 1.8 cm cyst of the liver. The liver is otherwise normal with normal echogenicity and echo texture. No surface nodularity. Normal hepatopetal flow in the main portal vein. There is sludge in t he gallbladder. There is no gallbladder wall thickening. There is a 7 mm gallbladder polyp. The janusz l common bile duct measures 6 mm. There was no sonographic James sign. IMPRESSION: 1. No sonographic correlate for the patient's symptoms. 2. 7 mm gallbladder polyp which may reflect benign polyp versus adenoma versus small cancer. Follow-u p ultrasound in one year is recommended. Reviewed, dictated and finalized at [facility]. IMPRESSION: 1. No sonographic correlate for the patient's symptoms. 2. 7 mm gallbladder polyp which may reflect benign polyp versus adenoma versus small cancer. Follow-up ultrasound in one year is recommended.
[2022-12-05 01:05] VITALS: BP 95/62; PULSE 66; RESP 14; TEMP 37.2; O2SAT 95
[2022-12-05 05:05] VITALS: BP 96/69; PULSE 59; RESP 14; TEMP 37.4; O2SAT 98
[2022-12-05] MEDS: HYDROcodone/acetaminophen (*CRX) 5-325 MG TABLET 1 TAB PO (05:05)
--- NOTE | 2022-12-05 08:25 | PM.GYNPNOP ---
[employer]URE [employer] - A/P Assessment and plan (1) Pelvic inflammatory disease: Code(s): N73.9 - Female pelvic inflammatory disease, unspecified Status: Acute (2) Menorrhagia: Code(s): N92.0 - Excessive and frequent menstruation with regular cycle Status: Acute Plan 37-year-old female presented for hysterectomy yesterday who was found to have purulent fluid in the pelvis. Presumably pelvic inflammatory disease. Had normal ultrasound of her right upper quadrant. Is receiving IV antibiotics and will be discharged home on oral antibiotics. Will obtain CBC and gonorrhea chlamydia test of the urine. She has got genital cultures pending pending Postoperative Procedures: Procedures Operation Date: 12/04/22 07:30 Actual Procedure Side Surgeon p Aborted Robotic Assisted Hysterectomy with Bilateral Salpingectomy Not Applicable Jean Garcia MD Postoperative day: 1 Postoperative status: doing well Postoperative plan: see orders Time Spent With Patient Time: Total time spent is greater than 50% in coordination of care (as documented) at patient's floor/unit and/or counseling patient: Time with patient: 15 - 25 minutes [employer]- PN:Subj Post-Op Subjective Date/time seen: 12/05/22 08:25 Subjective: patient reports feeling better, patient has no complaints and pain is well controlled Exam Const: General: healthy appearing, comfortable and no acute distress Resp: Auscultation: clear to auscultation bilaterally, no rales, no rhonchi and no wheezes Cardio: Rate: regular rate Heart sounds: no click, no murmurs and no rubs GI: Inspection: non-distended Auscultation: normal bowel sounds Extrem: General: normal to inspection, no pedal edema and no calf tenderness [employer]TI[employer]ER - PN: Obj Data Vital Signs Vital Signs: Vital Signs - 24 hr 12/04/22 08:46 12/04/22 09:00 12/04/22 09:15 Temperature 97.2 F L Pulse Rate 80 55 L 55 L Respiratory Rate 16 12 12 Blood Pressure 105/52 L 101/61 97/64 L Pulse Oximetry 100 100 100 Oxygen Delivery Simple Face Mask Simple Face Mask Room Air Oxygen Flow Rate 8 8 12/04/22 09:30 12/04/22 09:45 12/04/22 10:00 Temperature Pulse Rate 52 L 53 L 58 L Respiratory Rate 12 12 18 Blood Pressure 102/65 94/55 L 98/63 L Pulse Oximetry 100 100 100 Oxygen Delivery Room Air Room Air Room Air Oxygen Flow Rate 12/04/22 10:15 12/04/22 10:30 12/04/22 10:45 Temperature Pulse Rate 65 60 59 L Respiratory Rate 12 12 12 Blood Pressure 103/67 100/70 102/66 Pulse Oximetry 100 100 100 Oxygen Delivery Room Air Room Air Room Air Oxygen Flow Rate 12/04/22 11:00 12/04/22 11:15 12/04/22 12:48 Temperature 97.9 F 98.2 F Pulse Rate 62 61 76 Respiratory Rate 12 12 16 Blood Pressure 99/69 L 103/76 116/64 Pulse Oximetry 100 100 100 Oxygen Delivery Room Air Room Air Oxygen Flow Rate 12/04/22 13:05 12/04/22 17:05 12/04/22 20:55 Temperature 98.5 F 99.5 F 98.4 F Pulse Rate 73 94 74 Respiratory Rate 16 16 14 Blood Pressure 106/67 114/61 108/66 Pulse Oximetry 99 98 98 Oxygen Delivery Oxygen Flow Rate 12/04/22 20:00 12/05/22 01:05 12/05/22 05:05 Temperature 98.9 F 99.3 F Pulse Rate 66 59 L Respiratory Rate 14 14 Blood Pressure 95/62 L 96/69 L Pulse Oximetry 95 98 Oxygen Delivery Room Air Oxygen Flow Rate Intake/Output Intake/Output: Intake & Output 12/02/22 12/03/22 12/04/22 12/05/22 23:59 23:59 23:59 23:59 Intake Total 2009 500 Balance 2009 500 Meds/Results Medications: Active Medications Generic Name Dose Route Start Last Admin Trade Name Freq PRN Reason Stop Dose Admin Hydrocodone Bitart/Acetaminophen 1 tab 12/04/22 11:20 12/05/22 05:05 Hydrocodone/Acetaminophen (*Crx) 5-325 Mg Tablet PO 1 tab Q3H PRN Administration Pain Rated 5 or Less Hydrocodone Bitart/Acetaminophen 1 tab 12/04/22 11:20 Hydrocodone/Acetaminophen (*Crx) 10-325 Mg Tablet PO Q3H PRN Pain Rated 6 or Greater Ceftriaxone Sodiu
[2022-12-05] MEDS: cefTRIAXone 2 GM/NS 100 ML 2 GM/100 ML BAG IVPB (08:27)
[2022-12-05] MEDS: metroNIDAZOLE 500 MG/ISO 100ML 500 MG/100 ML BAG 100 MG IVPB (08:27)
[2022-12-05 08:56] VITALS: BP 107/65; PULSE 68; RESP 16; TEMP 36.4; O2SAT 99
[2022-12-05 08:57] LABS: Basophils Percent Auto 0.4 % (0.2-1.2); Eosinophils Absolute Auto 0.2 K/mm3 (0-0.3); Eosinophils Percent Auto 2.5 % (0-4.4); Hematocrit 36.9 % (37.0-47.0); Hemoglobin 12.1 g/dL (12.0-15.0); Immature Granulocyte Absolute 0.02 K/mm3 (0.00-0.031); Immature Granulocyte Percent A 0.2 % (0-0.5); Lymphocytes Absolute Auto 2.61 K/mm3 (0.9-3.2); Lymphocytes Percent Auto 32.3 % (18.3-44.2); Mean Corpuscular HGB Conc 32.8 g/dl (32-36); Mean Corpuscular Hemoglobin 30.5 pg (26-34); Mean Corpuscular Volume 92.9 fl (80-100); Mean Platelet Volume 10.4 fl (7.4-10.4); Monocytes Absolute Auto 0.5 K/mm3 (0.1-0.6); Monocytes Percent Auto 5.8 % (2.6-8.5); Neutrophils Absolute Auto 4.7 K/mm3 (1.3-6.7); Neutrophils Percent Auto 58.8 % (45.5-73.1); Platelet Count Result 266 k/mm3 (150-375); Red Blood Count 3.97 M/mm3 (4.2-5.4); Red Cell Distribution Width 13.3 % (11.5-14.5); White Blood Count 8.1 K/mm3 (4.5-10.0)
[2022-12-05 09:00] LABS: Appearance Urine Cloudy (Clear); Bacteria Urine None Seen /hpf; Bilirubin Urine 1+ (Negative); Blood Urine 3+ (Negative); Color Urine Dark Yellow (Yellow); Glucose Urine UA Negative (Negative); Ketones Urine Trace mg/dL (Negative); Leukocyte Esterase Ur 1+ LEU/UL (Negative); Nitrate Urine Negative (Negative); Non Pathogenic Casts 0-2; Protein Urine Trace mg/dL (Negative); RBC Urine >100 /hpf (0-2); Specific Grav Ur 1.024 (1.001-1.035); Squamous Epithelial Cell Urine Occasional /hpf (Few)
[2022-12-05 09:14] LABS: Add Urine Microscopic? YES
[2022-12-05 12:52] VITALS: BP 105/52; PULSE 68; RESP 16; TEMP 36.9; O2SAT 99
--- NOTE | 2022-12-31 08:42 | PM.DS ---
DS: Admitting Diagnosis Discharge Date 12/05/22 Admitting Diagnosis Menorrhagia DS: Discharge Diagnosis Discharge Diagnosis (1) Post-op pain: Code(s): G89.18 - Other acute postprocedural pain Status: Acute (2) Menorrhagia: Code(s): N92.0 - Excessive and frequent menstruation with regular cycle Status: Acute DS: Summary Hospital Course Hospital Course: 27-year-old admitted for surgery for menorrhagia. Hysterectomy was performed. She tolerated well. She was discharged home on post Time Spent with Patient Time attestation: Total time spent providing and/or coordinating discharge services: Discharge Plan Discharge Consulting providers: Mannie Snyder ; Lucas Pozo Discharging Clinician: Jean Garcia Patient Disposition: Home, Self-Care Activity: pelvic rest Diet: regular Stand Alone Forms: General Discharge Instructions Follow-up/Referrals: Jean Garcia MD [Physician] - Discharge Medications: New hydrocodone-acetaminophen 5-325 mg tablet 1 tablet PO Q4H PRN (Reason: pain) Qty: 25 0RF doxycycline hyclate 100 mg tablet 100 mg PO BID Qty: 30 0RF metronidazole 500 mg tablet 500 mg PO Q12H Qty: 30 0RF Continued fqajvolj-xcd-drcx-vitamin K 18 mg iron-25 mcg Tablet 1 tablet PO DAILY ondansetron 4 mg tablet,disintegrating 4 mg PO Q8H PRN (Reason: nausea and vomiting) Qty: 10 0RF calcium carbonate 500 mg calcium (1,250 mg) Tablet 500 mg PO TID omeprazole 40 mg capsule,delayed release(DR/EC) 40 mg PO BID Date of admission: 12/05/22 10:01 Primary Care Provider: Veronica,Es Drake Admitting Provider: Jean Garcia Attending physician on admission: Jean Garcia Condition: Stable
== END 2022-12-05 13:40 | disposition home or self-care (01) ==
LOC: ANHSURGERY 10:18 → ANH3MEDSUR 10:18
PROVIDERS: Admitting Provider Obstetrics & Gynecology; PCP Nurse Practitioner Family; Visit Provider Obstetrics & Gynecology
PROC: (CPT 49320; principal; 2022-12-04 07:30)
DX: N92.0 Excessive and frequent menstruation with regular cycle (principal); N73.9 Female pelvic inflammatory disease, unspecified; K82.4 Cholesterolosis of gallbladder; F90.9 Attention-deficit hyperactivity disorder, unspecified type; J45.909 Unspecified asthma, uncomplicated; G43.909 Migraine, unspecified, not intractable, without status migrainosus; I44.1 Atrioventricular block, second degree; F12.90 Cannabis use, unspecified, uncomplicated; Z79.899 Other long term (current) drug therapy
CPT/HCPCS: 49320; 36415; 76705; 80053; 81001; 85025; 87070; 87075; 87086; 87205; 87491; 87591; A9270; G0378; J0690; J0696; J1100; J1170; J1885; J2250; J2405; J2704; J2710; J3010; J7120

== ENCOUNTER 2022-12-22 09:33 | Outpatient (CLI) | payer OTHER, SELFPAY ==
[2022-12-22 10:59] LABS: HIV 1/2 Ab P24 Ag Result Negative (Negative)
[2022-12-22 11:31] LABS: Rapid Plasma Reagin Non-Reactive (NonReactive)
[2022-12-22 11:42] LABS: Hepatitis C Virus Antibody Negative (Negative)
[2022-12-25 12:04] LABS: Hepatitis Be Antibody Nonreactive; Hepatitis Be Antigen Nonreactive
[2022-12-25 17:44] LABS: HSV 1 IgM Screen Negative (Negative); HSV 2 IgM Screen Negative (Negative)
== END 2022-12-22 09:34 | disposition home or self-care (01) ==
PROVIDERS: PCP Nurse Practitioner Family
DX: K91.2 Postsurgical malabsorption, not elsewhere classified (principal); Z98.84 Bariatric surgery status
CPT/HCPCS: 36415; 86592; 86695; 86696; 86703; 86707; 86803; 87350; G0432

== ENCOUNTER 2023-02-03 01:23 | Day surgery (SDC) | payer OTHER, SELFPAY ==
[2023-01-26 10:57] VITALS: BMI 20.6
--- NOTE | 2023-01-26 10:57 | PC.NURSE ---
Report to the Outpatient Waiting Room, entrance under the green pavilion located off [facility], at time 0830 on date 02/03/23. Planned Procedure Time: 1030. Time changes happen often and if your time is changed the preop area will call you the afternoon before. - You and your visitor will be asked to self-screen and do not enter if you have any COVID symptoms. - A mask is optional within the hospital at this time. Patients may have clear liquids (water, carbonated beverages, clear teas, apple juice) until 3 hours prior to surgery with a maximum of 20 ounces. - No food from midnight until time of surgery Take the following medications with a SIP of water the morning of surgery: FLUOXETINE DO NOT STOP ANY OF YOUR OTHER PRESCRIPTION MEDICATIONS PRIOR TO SURGERY EXCEPT THE FOLLOWING Medications to discontinue per physician: VITAMINS Date to take last dose: 01/30/23 Please no make-up, nail sinhala, hairspray, perfume, deodorant, or body powder the day of surgery. No jewelry (including any body piercings) or valuables the day of surgery, leave them at home. Please take a shower or bath the night before, or the morning of, surgery with an antibacterial soap. Wear comfortable, loose fitting clothing. - Jewelry must be removed prior to entering the operating room. Rings and piercings that are not removed may be cut off. - The hospital will not accept responsibility for valuables. - Please leave all valuables, including medications, at home the day of surgery. If you are going home after surgery, a licensed local truck driver must drive you home. - NO public transportation without another adult if you receive anesthesia. - We recommend that an adult stay with you for 24 hours following discharge. - We also recommend that you do not drive, make important decision, drink alcoholic beverages, or take any drugs that were not prescribed by your health care provider for at least 24 hours after your discharge time. Follow any additional instructions given to you from your surgeon. If you or anyone in your household have experienced Covid symptoms in the past week, please notify your surgeon or the nurse liaison at the phone number below for possible testing. Telephone instructions given to PT - MARIXA PICHARDO and asked if any additional questions and then verbalized understanding. Patient advised to call surgeon office or pre surgery nurse liaison [phone] if any additional questions.
[2023-02-03] VITALS (10 sets, daily range): BP systolic 95–118; BP diastolic 57–74; PULSE 59–73; RESP 12–18; TEMP 36.4–37.1; O2SAT 99–100; BMI 20.4
[2023-02-03] MEDS: LACTATED RINGERS 1,000 ML 30 ML IV CONT ×2 (08:45→13:03)
[2023-02-03] MEDS: ACETAMINOPHEN 500 MG TABLET 1000 MG PO (08:55)
--- NOTE | 2023-02-03 09:17 | P.PNAN_ITS ---
Anes - Initial Pre Proc Eval Procedure: Operation Date: 02/03/23 10:30 Proposed Procedures p Robotic Assisted Total Hysterectomy with Bilateral Salpingectomy - Jean Garcia MD Date/Time: 02/03/23 09:17 Surgeon: Jean Garcia MD Pre Op Diagnosis: mennorhagia Patient Data Age: 27 Gender: F Height: 1.5 m Weight: 46.4 kg Allergies Allergy/AdvReac Type Severity Reaction Status Date / Time iohexol Allergy Unknown Hives Verified 02/03/23 09:01 [From contrast - CT, X-RAY] latex Allergy Unknown Rash Verified 02/03/23 09:01 phentermine Allergy Unknown Unknown Verified 02/03/23 09:01 NSAIDS (Non-Steroidal AdvReac Other Verified 02/03/23 09:01 Anti-Inflamma Home Medications Medication Instructions Recorded Confirmed Type multivitamin p-ichflnou-xzojfru 1 tablet PO DAILY 01/25/22 01/26/23 History fumarate 18 mg-vitamin K 25 mcg tablet fluoxetine 20 mg tablet 20 mg PO DAILY 01/26/23 01/26/23 History sucralfate 1 gram tablet 1 g PO QID 01/26/23 01/26/23 History Patient hx anesthesia problems: none Family hx anesthesia problems: none Results Review: All pre-operative results and documents have been reviewed as part of the pre- operative evaluation. 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 Informed Consent: The patient's anesthetic plan and its attendant risks and benefits were discussed with the patient/family/POA. Questions were solicited and answers provided to the satisfaction of the patient/family/POA.
--- NOTE | 2023-02-03 10:23 | PM.IMHP ---
H&P: HPI History of Present Illness Date/Time: 02/03/23 10:23 Chief Complaint: menorrhagia Narrative: this patient is a 27-year-old female with severe menorrhagia. We agreed to perform robotic assisted hysterectomy with bilateral salpingectomy. The patient understands the procedure. The procedure was described to the patient in great detail. the patient also understands the risks. The risks were also explained in detail. She understands that injuries May occur during surgery. She understands these injuries can result in hospitalization, more surgery, and severe illness. She understands there is risk of hemorrhage and infection. Review of Systems Review of Systems: All systems reviewed & are unremarkable except as noted in HPI and below Constitutional: Constitutional: Denies chills, Denies fatigue, Denies fever(s) and Denies weakness Eyes: Eyes: Denies blurry vision, Denies change in vision, Denies loss of peripheral vision, Denies loss of vision, Denies other visual disturbances and Denies eye pain ENT: Denies vertigo, Denies dizziness, Denies hearing loss, Denies mouth pain, Denies nasal obstruction, Denies neck mass and Denies neck pain Cardiovascular: Cardiovascular: Denies chest pain, Denies diaphoresis, Denies syncope, Denies leg edema and Denies dyspnea Respiratory: Respiratory: Denies chest congestion, Denies cough, Denies hemoptysis, Denies dyspnea and Denies wheezing Gastrointestinal: Gastrointestinal: Denies abdominal pain, Denies constipation, Denies diarrhea, Denies nausea and Denies vomiting Genitourinary: Genitourinary: Denies hematuria, Denies change in libido, Denies nocturia, Denies genital lesions, Denies flank pain and Denies urinary urgency Musculoskeletal: Musculoskeletal: Denies abnormal gait, Denies back pain, Denies myalgias, Denies arthralgias, Denies joint swelling, Denies muscle weakness and Denies neck pain Integumentary/Breasts: Skin/Breast: Denies swelling, Denies breast pain, Denies breast mass, Denies dry skin, Denies nipple discharge, Denies unusual bruising and Denies jaundice Neurologic: Denies Neuro-related abnormal movements, Denies Abnormal speech present, Denies abnormal gait, Denies behavioral changes, Denies confusion, Denies vertigo, Denies dizziness, Denies syncope, Denies loss of vision, Denies memory loss, Denies convulsions and Denies weakness Psychiatric: Psychiatric: Denies abnormal sleep pattern, Denies behavioral changes, Denies change in libido, Denies confusion, Denies depression, Denies anhedonia and Denies memory loss Endocrine: Endocrine: Reports no additional endocrine complaints, Denies change in libido and Denies fatigue Hematologic/Lymphatic: Hematologic/Lymphatic: Reports no additional hematologic/lymphatic complaints Allergic/Immunologic: Allergic/Immunologic: Reports no additional allergic/immunologic complaints and Denies wheezing PMFSH Past Medical History Medical History ADHD Asthma Chest pain Heartburn Migraine Palpitation Second degree AV block Syncope Surgical History Surgical History S/P S/P tubal ligation Social History Social History Social History: some history of marijuana Smoking status: Never smoker Alcohol intake: never Alcohol use details: none at present Substance use: current Substance use type: marijuana Living arrangements: with family Additional living arrangements comments: CHILDREN Occupation/Education: occupation 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
--- NOTE | 2023-02-03 10:25 | WPDHPUPDATE1 ---
History and Physical Update Update Date/Time: 02/03/23 10:25 History and Physical has been reviewed, including an updated exam of the patient. There are NO changes in the patient's condition. Risks, benefits, and alternatives have been discussed and questions answered. Patient agrees to proceed with procedure.
[2023-02-03] MEDS: ceFAZolin 2 GM/D5W 50 ML 2 GM/50 ML BAG IVPB (10:42)
--- NOTE | 2023-02-03 13:16 | W.PM.PROC2 ---
Procedure Note - Detailed Date of Procedure 02/03/23 Pre-op Diagnosis mennorhagia Post-op Diagnosis Same Procedure Performed Robot assisted Total hysterectomy with bilateral salpingectomy. Surgeon Jean Garcia MD Anesthesia General Indications heavy vaginal bleeding, pelvic pain Findings normal-appearing , mildly enlarged uterus, ovaries, And fallopian tubes. Description of Procedure This patient was taken to the operating room. She was prepped and draped in the dorsal lithotomy position after induction of general anesthesia. The uterine manipulator and Vel cup were placed. This was done with a speculum and tenaculum. The speculum was placed. The cervix was grasped with a tenaculum. The stay sutures were placed at 3 and 9:00 a.m.. The stay sutures of 0 Vicryl were tied to the appropriately Size scope after it was slipped around the cervix.. The tip of the RA manipulator was placed in the intrauterine cavity. The cup was slid into place around the cervix and into the fornices. It was locked into place. The sutures were then wrapped around the handle and tied under tension. A 8 mm skin incision was made in the left upper quadrant the abdomen. a 5 mm Visiport trocar was inserted into abdominal cavity and pneumoperitoneum was achieved. A 8 mm supraumbilical incision was made and a 8 mm trocar was inserted into the intrauterine cavity under direct visualization of the scope. an 8 mm incision was made in the right upper quadrant of the abdomen and an 8 mm robotic trocar was placed the inter uterine cavity under direct visualization the scope. An 11 mm trocar was inserted in the right upper quadrant of the abdomen rectal is a cystoscope after an incision was made there as well. The robot was docked. Electronic Orientation of the robot was performed. Bilateral ureteral lysis was performed. This was done from the pelvic brim down to the uterine artery. This was done with careful dissection using sharp and blunt dissection. The fallopian tubes were removed bilaterally. The mesosalpinx around the fallopian tubes were cauterized transected with LigaSure cautery. This was done in a bilateral fashion from the ovary to the uterine cornua. The fallopian tube was transected at the uterine cornu and amputated. The tube was taken out the left lower quadrant trocar site. In a stepwise fashion along the lateral aspects of the uterus the round ligament and broad ligaments were cauterized transected down to the level of the uterine arteries. A bladder flap was created in the bladder was moved distally to the end of the cervix and over the Vel cup. The bilateral uterine arteries were cauterized and transected. Colpotomy was then performed. In a circumferential fashion the vagina was transected using unipolar cautery. The incision was made down on the Vel cup. The uterus and cervix were taken out through the vagina. A pneumo occluder was placed in the vagina. The vaginal cuff was closed with a 0 V lock suture in a running fashion. The pelvis was irrigated with copious amounts antibiotic irrigation. The ureters were again examined and found to be intact and flowing freely under the uterine arteries into the bladder. The bladder was intact. It was examined directly. The vagina was irrigated with Betadine solution after removal of the Pneumo occluder. the trocars were removed after the robot was undocked. The skin was closed with subacute or Dermabond. The patient was taken to recovery room. She was stable condition. Sponge lap and needle counts were correct x2. Estimated Blood Loss -50.0 Urine Output 800 Drains Yes Packing No Pathology Yes Complications No immediate complications Condition Stable Disposition Floor
--- NOTE | 2023-02-03 14:28 | PC.NURSE ---
Patient transferred to post room #283 via ( stretcher ). Support person present. Oriented to unit, room, information board, rooming in, admission packet and security measures. Patient verbalizes understanding.
[2023-02-03] MEDS: DEXTROSE 5%/0.45% SOD CHL 1,000 ML 125 ML IV CONT (14:35)
[2023-02-03] MEDS: SUCRALFATE 1 GM TABLET PO ×2 (16:37→23:22)
[2023-02-03] MEDS: LORATADINE 10 MG TABLET PO (16:37)
[2023-02-03] MEDS: HYDROcodone/acetaminophen (*CRX) 5-325 MG TABLET 1 TAB PO ×2 (16:42→21:35)
[2023-02-03] MEDS: SIMETHICONE 80 MG TAB.CHEW (21:35)
--- NOTE | 2023-02-03 22:20 | PC.NURSE ---
At 2099 discharge paperwork and instructions were given, IV was discontinued. Once patient got up and dressed and called to be wheeled downstairs she experienced a near syncope episode at 2129 followed by nausea and severe gas pain. Patient was given pain medications. After 30 minutes patient was found to be asleep in bed and support person suggested that they would stay this evening. At 2214 physician was notified of the patients decision to stay and the events leading up to this decision.
[2023-02-04 05:06] VITALS: BP 96/52; PULSE 66; RESP 18; TEMP 36.8; O2SAT 99
[2023-02-04 05:38] LABS: Basophils Percent Auto 0.2 % (0.2-1.2); Eosinophils Absolute Auto 0.2 K/mm3 (0-0.3); Eosinophils Percent Auto 2.1 % (0-4.4); Hematocrit 35.6 % (37.0-47.0); Hemoglobin 11.9 g/dL (12.0-15.0); Immature Granulocyte Absolute 0.03 K/mm3 (0.00-0.031); Immature Granulocyte Percent A 0.3 % (0-0.5); Lymphocytes Absolute Auto 1.43 K/mm3 (0.9-3.2); Lymphocytes Percent Auto 12.8 % (18.3-44.2); Mean Corpuscular HGB Conc 33.4 g/dl (32-36); Mean Corpuscular Volume 89.7 fl (80-100); Mean Platelet Volume 10.9 fl (7.4-10.4); Monocytes Absolute Auto 0.6 K/mm3 (0.1-0.6); Monocytes Percent Auto 5.1 % (2.6-8.5); Neutrophils Absolute Auto 8.9 K/mm3 (1.3-6.7); Neutrophils Percent Auto 79.5 % (45.5-73.1); Platelet Count Result 260 k/mm3 (150-375); Red Blood Count 3.97 M/mm3 (4.2-5.4); White Blood Count 11.2 K/mm3 (4.5-10.0)
--- NOTE | 2023-02-04 08:12 | PM.GYNPNOP ---
[employer] - A/P Postoperative Procedures: Procedures Operation Date: 02/03/23 10:30 Actual Procedure Side Surgeon p Robotic Assisted Total Hysterectomy with Bilateral Salpingectomy Bilateral Jean Garcia MD Postoperative day: 1 Postoperative status: doing well Postoperative plan: see orders Time Spent With Patient Time: Total time spent is greater than 50% in coordination of care (as documented) at patient's floor/unit and/or counseling patient: Time with patient: less than 15 minutes [employer]- PN:Subj Post-Op Subjective Date/time seen: 02/04/23 08:12 Subjective: patient reports feeling better, patient has no complaints and pain is well controlled Exam Const: General: healthy appearing, comfortable and no acute distress Resp: Auscultation: clear to auscultation bilaterally, no rales, no rhonchi and no wheezes Cardio: Rate: regular rate Heart sounds: no click, no murmurs and no rubs GI: Inspection: non-distended Auscultation: normal bowel sounds Extrem: General: normal to inspection, no pedal edema and no calf tenderness [employer] - PN: Obj Data Vital Signs Vital Signs: Vital Signs - 24 hr 02/03/23 13:03 02/03/23 13:15 02/03/23 13:30 Temperature 97.6 F Pulse Rate 59 L 73 67 Respiratory Rate 16 12 14 Blood Pressure 107/64 110/65 111/67 Pulse Oximetry 100 100 100 Oxygen Delivery Simple Face Mask Simple Face Mask Simple Face Mask Oxygen Flow Rate 6 6 6 02/03/23 13:45 02/03/23 14:00 02/03/23 14:15 Temperature Pulse Rate 63 62 63 Respiratory Rate 16 12 16 Blood Pressure 118/67 115/70 113/74 Pulse Oximetry 100 100 99 Oxygen Delivery Room Air Room Air Room Air Oxygen Flow Rate 02/03/23 14:48 02/03/23 14:40 02/03/23 19:00 Temperature 98.7 F 97.8 F Pulse Rate 63 65 Respiratory Rate 18 16 Blood Pressure 112/69 103/63 Pulse Oximetry 100 100 Oxygen Delivery Room Air Oxygen Flow Rate 02/03/23 19:00 02/03/23 23:23 02/03/23 23:23 Temperature 98.2 F Pulse Rate 64 Respiratory Rate 16 Blood Pressure 95/57 L Pulse Oximetry 99 Oxygen Delivery Room Air Room Air Oxygen Flow Rate 02/04/23 05:06 02/04/23 05:06 Temperature 98.2 F Pulse Rate 66 Respiratory Rate 18 Blood Pressure 96/52 L Pulse Oximetry 99 Oxygen Delivery Room Air Oxygen Flow Rate Intake/Output Intake/Output: Intake & Output 02/01/23 02/02/23 02/03/23 02/04/23 23:59 23:59 23:59 23:59 Intake Total 1150 200 Output Total 990 Balance 160 200 Meds/Results Medications: Active Medications Generic Name Dose Route Start Last Admin Trade Name Freq PRN Reason Stop Dose Admin Hydrocodone Bitart/Acetaminophen 1 tab 02/03/23 14:21 Hydrocodone/Acetaminophen (*Crx) 10-325 Mg Tablet PO Q3H PRN Pain Rated 6 or Greater Hydrocodone Bitart/Acetaminophen 1 tab 02/03/23 14:21 02/03/23 21:35 Hydrocodone/Acetaminophen (*Crx) 5-325 Mg Tablet PO 1 tab Q3H PRN Administration Pain Rated 5 or Less Fluoxetine HCl 20 mg 02/04/23 09:00 Fluoxetine Hcl 20 Mg Capsule PO DAILY [facility] Dextrose/Sodium Chloride 1,000 mls @ 125 mls/hr 02/03/23 14:21 02/03/23 22:41 Dextrose 5% Sodium Chloride 0.45% IV CONT Not Given .Q8H [place] Multivitamins/Calcium 1 tablet 02/04/23 09:00 Therapeutic Multivitamins/Minerals Tab (*Bkc) PO DAILY [place] Naloxone HCl 0.1 mg 02/03/23 14:21 Naloxone Hcl 0.4 Mg/Ml Vial IV PUSH Q2M PRN Respiratory rate less than 10 Ondansetron HCl 4 mg 02/03/23 14:21 Ondansetron Inj 4 Mg/2 Ml Vial IV PUSH Q6H PRN Nausea And Vomiting Sucralfate 1 gm 02/03/23 17:00 02/03/23 23:22 Sucralfate 1 Gm Tablet PO 1 gm QID LAKISHA Administration Labs 02/04/23 05:28 Labs: Laboratory Results - last 24 hr 02/03/23 02/04/23 08:48 05:28 WBC 11.2 H RBC 3.97 L Hgb 11.9 L Hct 35.6 L MCV 89.7 MCH 30.0 MCHC 33.4 RDW 13.0 Plt Count 260 MPV 10.9 H Immature Gran %
[2023-02-04 08:15] VITALS: BP 96/52; PULSE 62; RESP 16; TEMP 37.5; O2SAT 100
[2023-02-04] MEDS: SUCRALFATE 1 GM TABLET PO (08:16)
[2023-02-04] MEDS: THERAPEUTIC MULTIVITAMINS/MINERALS TAB (*BKC) 1 TABLET PO (08:16)
[2023-02-04] MEDS: FLUoxetine HCL 20 MG CAPSULE PO (08:16)
--- NOTE | 2023-02-04 11:07 | WPDANESPN ---
Anes - Prog Note Post-Op Date/Time: 02/04/23 11:07 Vital Signs: Last Vital Signs Temp 37.5 C 02/04/23 08:15 Pulse 62 02/04/23 08:15 Resp 16 02/04/23 08:15 BP 96/52 L 02/04/23 08:15 Pulse Ox 100 02/04/23 08:15 O2 Del Method Room Air 02/04/23 05:06 O2 Flow Rate 6 02/03/23 13:30 Pain Score (VAS): 0 I/O: Intake & Output 02/03/23 02/04/23 02/04/23 23:59 07:59 15:59 Intake Total 900 200 Output Total 150 Balance 750 200 Laboratory Tests 02/04/23 05:28 02/04/23 05:28 WBC 11.2 H RBC 3.97 L Hgb 11.9 L Hct 35.6 L MCV 89.7 MCH 30.0 MCHC 33.4 RDW 13.0 Plt Count 260 MPV 10.9 H Immature Gran % (Auto) 0.3 Neut % (Auto) 79.5 H Lymph % (Auto) 12.8 L [place] % (Auto) 5.1 Eos % (Auto) 2.1 Baso % (Auto) 0.2 Lymph # (Auto) 1.43 [place] # (Auto) 0.6 Eos # (Auto) 0.2 Baso # (Auto) 0.0 Abs Immat Gran (auto) 0.03 Absolute Neuts (auto) 8.9 H Absolute Nucleated RBC 0.0 Nucleated RBC % 0.0 Patient Feedback: Patient satisfied with anesthetic care.
== END 2023-02-04 09:30 | disposition home or self-care (01) ==
LOC: ANHSURGERY 07:57 → ANHOB2 14:25
PROVIDERS: PCP Nurse Practitioner Family; Visit Provider Obstetrics & Gynecology
PROC: (CPT 58571; principal; 2023-02-03 10:30)
DX: N92.0 Excessive and frequent menstruation with regular cycle (principal); R10.2 Pelvic and perineal pain; N73.6 Female pelvic peritoneal adhesions (postinfective); F90.9 Attention-deficit hyperactivity disorder, unspecified type; F12.90 Cannabis use, unspecified, uncomplicated
CPT/HCPCS: 58571; S2900; 36415; 85025; 86850; 86900; 86901; 88307; 99199; A9270; J0690; J1100; J1170; J2250; J2370; J2405; J2704; J2710; J3010; J7030; J7120

== ENCOUNTER 2023-02-17 11:14 | Emergency (ER) | payer OTHER, SELFPAY ==
--- NOTE | ~2023-02-17 | CT_ITS ---
EXAMINATION: CT abdomen pelvis wo con DATE: 02/17/2023 11:49 INDICATION: Left lower abdominal pain and nausea for 2 days. Recent partial hysterectomy. TECHNIQUE: Computed tomography (CT) of the abdomen and pelvis was performed without intravenous contr ast. Automated exposure control and iterative reconstruction technique were employed. Exam dose: 191 .42 mGy-cm total exam DLP. COMPARISON: None. FINDINGS: The lung bases are clear. Normal heart size. No pericardial or pleural effusion. Status post gastric bypass surgery. 13 mm right hepatic cyst. Otherwise the liver, pancreas, spleen, adrenal glands and kidneys appear u nremarkable on this limited noncontrast examination. Normal caliber of the abdominal aorta. No intraperitoneal or retroperitoneal or pelvic mass lesion or adenopathy or ascites is noted. There are couple of very small locules of gas within the deep subcutaneous adipose tissues of the low er left anterior pelvic wall, possibly related to recent partial hysterectomy. No intraperitoneal anamaria e air is detected. Minimal free fluid in the right paracolic gutter and pelvis. Normal appendix. There is a prominent amount of feces in the colon but no evidence of bowel obstruct ion. Included skeletal structures are unremarkable. IMPRESSION: Status post gastric bypass surgery 13 mm hepatic cyst Minimal ascites and a couple of very small locules of gas deep in the subcutaneous tissues of the ant erior left pelvic wall. These findings may be related to recent partial hysterectomy Reviewed, dictated and finalized at [facility]. Reviewed, dictated and finalized at location [] IMPRESSION: Status post gastric bypass surgery 13 mm hepatic cyst Minimal ascites and a couple of very small locules of gas deep in the subcutane ous tissues of the anterior left pelvic wall. These findings may be related to recent partial hysterectomy
[2023-02-17 11:17] VITALS: BP 118/67; PULSE 68; RESP 16; TEMP 36.6; O2SAT 100
--- NOTE | 2023-02-17 11:38 | ED.ABDPAIN ---
HPI - Abdominal Pain General Chief Complaint: Abdominal Pain Stated Complaint: left lower abd pain Time Seen by Provider: 02/17/23 11:27 History of Present Illness HPI narrative: 27-year-old female who recently had a partial hysterectomy due to menorrhagia presents to the emergency room for evaluation of lower abdominal pain. Patient also reports dysuria. Denies fever, nausea vomiting or diarrhea. Patient denies any vaginal bleeding. Pain radiates into the back. Related Data Home Medications Medication Instructions Recorded Confirmed multivitamin a-bhydueqx-rgvmtun 1 tablet PO DAILY 01/25/22 02/03/23 fumarate 18 mg-vitamin K 25 mcg tablet fluoxetine 20 mg tablet 20 mg PO DAILY 01/26/23 01/26/23 sucralfate 1 gram tablet 1 g PO QID 01/26/23 01/26/23 Allergies Allergy/AdvReac Type Severity Reaction Status Date / Time iohexol Allergy Unknown Hives Verified 02/17/23 11:15 [From contrast - CT, X-RAY] latex Allergy Unknown Rash Verified 02/17/23 11:15 phentermine Allergy Unknown Unknown Verified 02/17/23 11:15 NSAIDS (Non-Steroidal AdvReac Other Verified 02/17/23 11:15 Anti-Inflamma Review of Systems Review of Systems: CONSTITUTIONAL: Denies fever, chills, or sweats. EYES: Denies visual changes, redness, or discharge. ENT: Denies rhinorrhea, congestion, sore throat, or otalgia. CARDIOVASCULAR: Denies chest pain, palpitations, or edema. RESPIRATORY: Denies cough or dyspnea. GASTROINTESTINAL: Per HPI GENITOURINARY: Denies dysuria or hematuria. SKIN: Denies rash or itching. MUSCULOSKELETAL: Denies back pain, joint pain, or myalgia. NEUROLOGIC: Denies headache, numbness, dizziness, or weakness. PSYCHIATRIC: Denies anxiety or depression. 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 HEAD: Normocephalic, atraumatic. EYES: Conjunctivae normal, PERRLA and EOMI. CHEST: Clear to auscultation. No respiratory distress. No wheezes rales or rhonchi. HEART: Regular rate and rhythm. No murmur heard. Normal peripheral pulses. ABDOMEN: Soft, diffuse tenderness, nondistended, normal active bowel sounds. BACK: No CVA tenderness EXTREMITIES: Normal range of motion. No edema. No clubbing or cyanosis SKIN: Warm, dry, no rash. No noted wounds NEURO: No focal deficits. Alert and oriented x3. MAEW. CN's II-XI intact bilaterally, normal gait PSYCH: Cooperative. Normal mood and affect. Course Vital Signs Vital signs: Vital Signs Temperature 36.6 C 02/17/23 11:17 Pulse Rate 68 02/17/23 11:17 Respiratory Rate 16 02/17/23 11:17 Blood Pressure 118/67 02/17/23 11:17 Pulse Oximetry 100 02/17/23 11:17 Oxygen Delivery Room Air 02/17/23 11:17 Temperature 36.6 C 02/17/23 11:17 Pulse Rate 68 02/17/23 11:17 Respiratory Rate 16 02/17/23 11:17 Blood Pressure 118/67 02/17/23 11:17 Pulse Oximetry 100 02/17/23 11:17 Oxygen Delivery Room Air 02/17/23 11:17 MDM - Abdominal Pain MDM Narrative Medical decision making narrative: 27-year-old female who is 2 weeks status post partial hysterectomy presented t
[2023-02-17] MEDS: SODIUM CHLORIDE 0.9% IV 1,000 ML 999 ML IV CONT (12:18)
[2023-02-17 12:22] LABS: Basophils Absolute Auto 0.1 K/mm3 (0.0-0.1); Basophils Percent Auto 0.7 % (0.2-1.2); Eosinophils Absolute Auto 0.2 K/mm3 (0-0.3); Eosinophils Percent Auto 2.2 % (0-4.4); Hematocrit 38.4 % (37.0-47.0); Hemoglobin 12.6 g/dL (12.0-15.0); Immature Granulocyte Absolute 0.02 K/mm3 (0.00-0.031); Immature Granulocyte Percent A 0.2 % (0-0.5); Lymphocytes Percent Auto 26.9 % (18.3-44.2); Mean Corpuscular HGB Conc 32.8 g/dl (32-36); Mean Corpuscular Hemoglobin 30.5 pg (26-34); Mean Platelet Volume 10.9 fl (7.4-10.4); Monocytes Absolute Auto 0.4 K/mm3 (0.1-0.6); Monocytes Percent Auto 4.7 % (2.6-8.5); Neutrophils Absolute Auto 5.8 K/mm3 (1.3-6.7); Neutrophils Percent Auto 65.3 % (45.5-73.1); Platelet Count Result 292 k/mm3 (150-375); Red Blood Count 4.13 M/mm3 (4.2-5.4); Red Cell Distribution Width 13.3 % (11.5-14.5); White Blood Count 8.9 K/mm3 (4.5-10.0)
[2023-02-17 12:24] LABS: Appearance Urine Clear (Clear); Bilirubin Urine Negative (Negative); Blood Urine Negative (Negative); Color Urine Yellow (Yellow); Glucose Urine UA Negative (Negative); Ketones Urine Negative (Negative); Leukocyte Esterase Ur Negative LEU/UL (Negative); Nitrate Urine Negative (Negative); Protein Urine Negative (Negative); Specific Grav Ur 1.011 (1.001-1.035)
[2023-02-17 12:35] LABS: Add Urine Microscopic? NO
[2023-02-17 12:50] LABS: Anion Gap 4 mmol/L (8-16); Blood Urea Nitrogen 14 mg/dL (7-17); Carbon Dioxide 32 mmol/L (22-30); Chloride 102 mmol/L (98-107); Estimated Glomerular Filt Rate > 60; Potassium 4.1 mmol/L (3.4-5.0); Sodium 138 mmol/L (137-145)
[2023-02-17 12:51] LABS: Alanine Aminotransferase 20 U/L (6-35); Alkaline Phosphatase 52 U/L (38-126); Aspartate Amino Transferase 24 U/L (14-36); Calcium 8.5 mg/dL (8.4-10.2); Glucose 85 mg/dL (65-110); Total Protein 6.9 g/dL (6.3-8.2)
[2023-02-17 13:17] VITALS: BP 109/74; PULSE 64; RESP 16; O2SAT 100
[2023-02-17 13:36] LABS: Lipase 82 U/L (23-300)
== END 2023-02-17 13:21 | disposition home or self-care (01) ==
PROVIDERS: Emergency Provider Nurse Practitioner Family; PCP Nurse Practitioner Family
DX: K59.00 Constipation, unspecified (principal); J45.909 Unspecified asthma, uncomplicated; F90.9 Attention-deficit hyperactivity disorder, unspecified type; Z90.711 Acquired absence of uterus with remaining cervical stump
CPT/HCPCS: 36415; 74176; 80053; 81003; 83690; 85025; 96360; 99284; J7030

== ENCOUNTER 2023-05-18 08:46 | Outpatient (CLI) | payer OTHER, SELFPAY ==
--- NOTE | ~2023-05-18 | US_ITS ---
EXAMINATION: US abdomen complete DATE: 05/18/2023 10:00 INDICATION: Bladder polyp TECHNIQUE: Multiple grayscale and Doppler ultrasound images of the abdomen were obtained. COMPARISON: Ultrasound dated 12/04/[address] dated FINDINGS: The pancreatic head, body and visualized tail are normal in appearance. The distalmost pancreatic ta il is not visualized. Abdominal aorta is normal in caliber measuring 1.7 cm proximally, 1.2 cm in the mid aorta and 1.2 cm in the distal aorta. The visualized proximal to mid inferior vena cava is janusz l. Liver has normal echogenicity and contour, with a smooth surface. 1.4 cm anechoic cyst in the live r. No other hepatic lesions identified. No intrahepatic biliary duct dilation suspected. Portal venou s flow was seen in the hepatopetal, normal direction and has normal Doppler waveform. There are a few hypoechoic nonshadowing nodules along the dependent wall of the gallbladder on the largest measuring 10 x 7 x 4 mm which is similar in size and location to the lesion identified on the prior ultrasound suggesting a gallbladder polyp although differential would include tumefactive sludge. No associated gallbladder wall thickening. The gallbladder is otherwise normal in appearance. There is no shadowi ng cholelithiasis. The common bile duct is mildly dilated measuring 7 mm in maximal diameter. There i s normal renal contour and echogenicity bilaterally. The right kidney measures 9.3 x 4.1 x 6.3 cm and the left 9.5 x 5.2 x 4.2 cm. There are no focal renal lesions identified. There is no hydronephros is. The small visualized portion of the spleen appears normal with the majority the spleen obscured b y shadowing ribs. IMPRESSION: 1. A few peripheral hypoechoic nodule along the dependent gallbladder wall which could represent eith er tumefactive sludge or gallbladder polyps, the largest 10 x 7 x 4 mm sessile appearing lesion appea rs similar in size and location as on the prior study favoring a polyp. Would recommend additional 1 year follow-up ultrasound. 2. Mild dilation of the common bile duct which measures up to 7 mm. Correlate with liver function teddy ts and if clinically indicated could consider further evaluation with MRCP. Reviewed, dictated and finalized at location [facility]. IMPRESSION: 1. A few peripheral hypoechoic nodule along the dependent gallbladder wall whic h could represent either tumefactive sludge or gallbladder polyps, the largest 10 x 7 x 4 mm sessile appearing lesion appears similar in size and location as on the prior study favoring a polyp. Would recommend additional 1 year follow-u p ultrasound. 2. Mild dilation of the common bile duct which measures up to 7 mm. Correlate w ith liver function tests and if clinically indicated could consider further jese luation with MRCP.
== END 2023-05-18 08:47 | disposition home or self-care (01) ==
PROVIDERS: PCP Nurse Practitioner Family
DX: K82.4 Cholesterolosis of gallbladder (principal)
CPT/HCPCS: 76700

== ENCOUNTER 2023-12-18 07:08 | Outpatient (CLI) | payer OTHER, SELFPAY ==
[2023-12-18 07:32] LABS: Basophils Percent Auto 0.4 % (0.2-1.2); Eosinophils Absolute Auto 0.2 K/mm3 (0-0.3); Eosinophils Percent Auto 2.2 % (0-4.4); Hematocrit 37.9 % (37.0-47.0); Hemoglobin 12.7 g/dL (12.0-15.0); Immature Granulocyte Absolute 0.01 K/mm3 (0.00-0.031); Immature Granulocyte Percent A 0.1 % (0-0.5); Lymphocytes Absolute Auto 2.36 K/mm3 (0.9-3.2); Lymphocytes Percent Auto 33.9 % (18.3-44.2); Mean Corpuscular HGB Conc 33.5 g/dl (32-36); Mean Corpuscular Hemoglobin 29.9 pg (26-34); Mean Corpuscular Volume 89.2 fl (80-100); Mean Platelet Volume 10.8 fl (7.4-10.4); Monocytes Absolute Auto 0.4 K/mm3 (0.1-0.6); Neutrophils Absolute Auto 4.1 K/mm3 (1.3-6.7); Neutrophils Percent Auto 58.4 % (45.5-73.1); Platelet Count Result 239 k/mm3 (150-375); Red Blood Count 4.25 M/mm3 (4.2-5.4); Red Cell Distribution Width 13.5 % (11.5-14.5)
[2023-12-18 07:53] LABS: Alanine Aminotransferase 20 U/L (6-35); Albumin Level 4.1 g/dL (3.5-5.1); Alkaline Phosphatase 57 U/L (38-126); Anion Gap 5 mmol/L (4-12); Aspartate Amino Transferase 24 U/L (14-36); Blood Urea Nitrogen 14 mg/dL (7-17); Calcium 9.4 mg/dL (8.4-10.2); Carbon Dioxide 27 mmol/L (22-30); Chloride 106 mmol/L (98-107); Cholesterol 147 mg/dL (0-200); Estimated Glomerular Filt Rate > 60; Glucose 93 mg/dL (65-110); HDL Direct 65 mg/dL; Magnesium 1.9 mg/dL (1.6-2.3); Phosphorus 4.6 mg/dL (2.5-4.5); Potassium 4.1 mmol/L (3.4-5.0); Sodium 138 mmol/L (137-145); Triglycerides 124 mg/dL (<150)
[2023-12-18 07:54] LABS: Parathyroid Intact 32.4 pg/mL (7.5-53.5)
[2023-12-18 08:03] LABS: LDL Cholesterol Direct 57 mg/dL; Prealbumin 20.9 mg/dL (17.6-36.0)
[2023-12-18 08:49] LABS: Iron 85 ug/dL (37-170)
[2023-12-18 08:58] LABS: Folic Acid 16.4 ng/mL (2.76->20)
[2023-12-18 08:59] LABS: Percent Iron Saturation 30 % (20-50)
[2023-12-18 09:23] LABS: Vitamin D 25 Hydroxy 36.7 ng/mL
[2023-12-23 13:27] LABS: Vitamin B1 18 nmol/L (8-30)
== END 2023-12-18 07:09 | disposition home or self-care (01) ==
LOC: ANHLAB 07:13
PROVIDERS: PCP Nurse Practitioner Family; Visit Provider Nurse Practitioner Family
DX: K90.9 Intestinal malabsorption, unspecified (principal); Z98.84 Bariatric surgery status
CPT/HCPCS: 36415; 80053; 80061; 82306; 82607; 82728; 82746; 83540; 83550; 83735; 83970; 84100; 84134; 84425; 85025

== ENCOUNTER 2024-03-06 10:19 | Emergency (ER) | payer OTHER, SELFPAY ==
--- NOTE | ~2024-03-06 | CT_ITS ---
EXAMINATION: CT abdomen pelvis wo con DATE: 03/06/2024 13:42 INDICATION: Postoperative abdominal pain. TECHNIQUE: Computed tomography (CT) of the abdomen and pelvis was performed without intravenous contr ast. Automated exposure control and iterative reconstruction technique were employed. The dose-length product was 193.97 mGy-cm. COMPARISON: CT abdomen and pelvis 02/17/2023 FINDINGS: The visualized portions of the lung bases demonstrate minimal atelectasis on the right. No pleural effusion. The heart size is normal. No pericardial effusion. There is a 14 mm cyst in the kale er. There are changes of cholecystectomy. There are changes of gastric bypass procedure. The spleen, pancreas, adrenal glands, and kidneys are normal. There is no urolithiasis. There is a small volume o f pelvic ascites. The appendix is normal. There are no pathologically enlarged lymph nodes. There is fat stranding around the umbilicus with foci of gas, consistent with recent surgery. The bones are un remarkable. IMPRESSION: 1. Inflammation in anterior abdominal wall around the umbilicus, consistent with recent surgery. 2. Small volume of pelvic ascites. Reviewed, dictated and finalized at location [facility]. IMPRESSION: 1. Inflammation in anterior abdominal wall around the umbilicus, consistent wit h recent surgery. 2. Small volume of pelvic ascites.
[2024-03-06 10:38] VITALS: BP 110/59; PULSE 80; RESP 18; TEMP 36.6; O2SAT 100
[2024-03-06 12:50] VITALS: BP 123/87; PULSE 82; RESP 18; O2SAT 100
--- NOTE | 2024-03-06 13:27 | ED.GENADULT ---
HPI - General Adult General Chief complaint: Recheck/Abnormal Lab/Rx Stated complaint: wound to abd - fever, post surgical Time Seen by Provider: 03/06/24 13:15 History of Present Illness HPI narrative: 20-year-old female presenting emergency department for evaluation of lower abdominal pain. Patient had a cholecystectomy done at [facility] by Dr. Brooks approximately 2 days ago. Patient states that the pain medication causes lesions she has not been taking any medications for pain control at home. Patient states that her lower abdominal pain has been worsening. Patient did call her surgeon to update her on the results and patient was unable to make it to [place] emergency department so she came to our ED for evaluation. Related Data Home Medications Medication Instructions Recorded Confirmed multivitamin [id number] 1 tablet PO DAILY 01/25/22 02/16/24 fumarate 18 mg-vitamin K 25 mcg tablet sucralfate 1 gram tablet 1 g PO QID 01/26/23 02/16/24 calcium citrate 200 mg (950 mg) 200 mg PO DAILY 11/12/23 02/16/24 tablet misoprostol 200 mcg tablet 200 mcg PO QID 11/12/23 02/16/24 omeprazole 40 mg capsule,delayed 40 mg PO BID 11/12/23 02/16/24 release Allergies Allergy/AdvReac Type Severity Reaction Status Date / Time iohexol Allergy Unknown Hives Verified 03/06/24 12:50 [From contrast - CT, X-RAY] latex Allergy Unknown Rash Verified 03/06/24 12:50 phentermine Allergy Unknown Unknown Verified 03/06/24 12:50 NSAIDS (Non-Steroidal AdvReac Other Verified 03/06/24 12:50 Anti-Inflamma Review of Systems Review of Systems: All systems reviewed & are unremarkable except as noted in HPI and below PMFSH Past Medical History Medical History (Updated 03/06/24 @ 15:05 by Shane Russell MD) ADHD Can't have extended release forms of meds due to hx bariatric surgery Asthma Chest pain Gastric ulcer Heartburn Hypoglycemia following gastrointestinal surgery Migraine Palpitation Second degree AV block Syncope Surgical History Surgical History H/O section (09/21/18) H/O: hysterectomy (~01/2023) History of gastric bypass (~2021) S/P (05/26/12) S/P tubal ligation (09/2018) Family History Family History Father Depression Mother Heart disease Diabetes mellitus Depression Sibling Diabetes mellitus Depression Heart disease Other Depression Diabetes mellitus Heart disease Grandparent Depression Heart disease Social History Social History Social History: some history of marijuana Smoking status: Never smoker Alcohol intake: never Alcohol use details: none at present Substance use: former Substance use type: marijuana Lack of Transportation: No Lack of Food: Never True Current Housing: I Have Housing Concerned About Future Housing: No Difficulty Paying Gas/Electric Bills: No Difficulty Paying for Meds: No Currently Unemployed: No Education: High School Diploma/GED Difficulty w/ Childcare or Family Care: No Living arrangements: with family Additional living arrangements comments: CHILDREN Occupation/Education: occupation 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 HEAD: normocephalic, atraumatic. EYES: PERRLA/EOMI, conjunctivae clear. NOSE: Normal no drainage EARS:TMS clear with good light reflex. THROAT: Pharynx clear, no exudate. NECK: Supple. No adenopathy, no masses. RESPIRATORY: Airway patent, respirations nonlabored. Clear to auscultation bilaterally, no rales, rhonchi, wheezing. CARDIOVASCULAR: Regular rate and rhyt
[2024-03-06] MEDS: SODIUM CHLORIDE 0.9% IV 1,000 ML 999 ML IV CONT ×2 (13:31→14:21)
[2024-03-06] MEDS: ONDANSETRON INJ 4 MG/2 ML VIAL IV PUSH (13:32)
[2024-03-06] MEDS: HYDROmorphone HCL INJ (*CRX) 1 MG/ML SYR 0.5 MG IV PUSH (13:32)
[2024-03-06 13:44] LABS: Basophils Percent Auto 0.3 % (0.2-1.2); Eosinophils Absolute Auto 0.5 K/mm3 (0-0.3); Eosinophils Percent Auto 5.2 % (0-4.4); Hematocrit 37.4 % (37.0-47.0); Hemoglobin 12.5 g/dL (12.0-15.0); Immature Granulocyte Absolute 0.03 K/mm3 (0.00-0.031); Immature Granulocyte Percent A 0.3 % (0-0.5); Lymphocytes Absolute Auto 2.01 K/mm3 (0.9-3.2); Lymphocytes Percent Auto 23.1 % (18.3-44.2); Mean Corpuscular HGB Conc 33.4 g/dl (32-36); Mean Corpuscular Hemoglobin 29.9 pg (26-34); Mean Corpuscular Volume 89.5 fl (80-100); Monocytes Absolute Auto 0.5 K/mm3 (0.1-0.6); Monocytes Percent Auto 5.8 % (2.6-8.5); Neutrophils Absolute Auto 5.7 K/mm3 (1.3-6.7); Neutrophils Percent Auto 65.3 % (45.5-73.1); Platelet Count Result 272 k/mm3 (150-375); Red Blood Count 4.18 M/mm3 (4.2-5.4); Red Cell Distribution Width 13.1 % (11.5-14.5); White Blood Count 8.7 K/mm3 (4.5-10.0)
[2024-03-06 13:55] LABS: Lactic Acid Reflex 0.6 mmol/L (0.7-2.0)
[2024-03-06 13:55] LABS: Alanine Aminotransferase 13 U/L (6-35); Albumin Level 4.3 g/dL (3.5-5.1); Alkaline Phosphatase 61 U/L (38-126); Anion Gap 8 mmol/L (4-12); Aspartate Amino Transferase 23 U/L (14-36); Bilirubin,Total 0.9 mg/dL (0.2-1.3); Blood Urea Nitrogen 13 mg/dL (7-17); Calcium 8.8 mg/dL (8.4-10.2); Carbon Dioxide 26 mmol/L (22-30); Chloride 105 mmol/L (98-107); Estimated Glomerular Filt Rate > 60; Glucose 81 mg/dL (65-110); Lipase 61 U/L (23-300); Potassium 4.3 mmol/L (3.4-5.0); Sodium 139 mmol/L (137-145)
[2024-03-06 14:03] LABS: Prothrombin Time 13.4 Seconds (11.1-14.7)
[2024-03-06 14:23] VITALS: BP 103/58; PULSE 77; RESP 14; O2SAT 100
[2024-03-06 15:17] VITALS: BP 101/64; PULSE 73; RESP 17; TEMP 37; O2SAT 100
== END 2024-03-06 15:19 | disposition home or self-care (01) ==
PROVIDERS: Emergency Provider Emergency Medicine; PCP Nurse Practitioner Family
DX: R10.30 Lower abdominal pain, unspecified (principal); Z90.49 Acquired absence of other specified parts of digestive tract
CPT/HCPCS: 36415; 74176; 80053; 83605; 83690; 85025; 85610; 85730; 96361; 96374; 96375; 99284; J1170; J2405; J7030

== ENCOUNTER 2024-04-08 18:02 | Emergency (ER) | payer OTHER, SELFPAY ==
--- NOTE | 2024-04-08 18:10 | ED.GENADULT ---
HPI - General Adult General Chief complaint: Upper Respiratory Infection Stated complaint: sorethroat,sob Time Seen by Provider: 04/08/24 18:10 Source: patient Mode of arrival: ambulatory Limitations: no limitations History of Present Illness HPI narrative: 28-year-old female patient presents to the [facility] with complaints of sore throat, head congestion, runny nose, shortness of breath and feels like there is pressure on chest. Patient states she has only taken Tylenol due to her history of gastric bypass she cannot ET headache extended release medication. Patient states she does have a history of type 2 heart block and saw her mail room clerk at begin the year and has not had any issues. patient denies any fevers, body aches or chills. Related Data Home Medications Medication Instructions Recorded Confirmed fluoxetine 10 mg tablet 10 mg PO DAILY 04/08/24 04/08/24 Allergies Allergy/AdvReac Type Severity Reaction Status Date / Time NSAIDS (Non-Steroidal AdvReac Intermediate Gastrointestinal Verified 04/08/24 18:15 Anti-Inflamma Upset phentermine AdvReac Intermediate Palpitation Verified 04/08/24 18:15 s iohexol AdvReac Mild Hives Verified 04/08/24 18:15 [From contrast - CT, X-RAY] latex AdvReac Mild Rash Verified 04/08/24 18:15 Review of Systems Review of Systems: CONSTITUTIONAL: Denies fever, chills, or sweats. EYES: Denies visual changes, redness, or discharge. ENT: Positive rhinorrhea, congestion, sore throat, denies otalgia. CARDIOVASCULAR: positive chest pain, denies palpitations, or edema. RESPIRATORY: Denies cough, positive dyspnea. GASTROINTESTINAL: Denies abdominal pain, nausea, vomiting, or diarrhea. GENITOURINARY: Denies dysuria or hematuria. SKIN: Denies rash or itching. MUSCULOSKELETAL: Denies back pain, joint pain, or myalgia. NEUROLOGIC: Denies headache, numbness, or weakness. PSYCHIATRIC: Denies anxiety or depression. [facility] Past Medical History Medical History ADHD Can't have extended release forms of meds due to hx bariatric surgery Asthma Chest pain Gastric ulcer Heartburn Hypoglycemia following gastrointestinal surgery Migraine Palpitation Second degree AV block Syncope Surgical History Surgical History (Reviewed 02/16/24 @ 08:30 by Manuela Carrillo [facility]) H/O section (09/21/18) H/O: hysterectomy (~01/2023) History of gastric bypass (~2021) S/P (05/26/12) S/P tubal ligation (09/2018) Family History Family History Father Depression Mother Heart disease Diabetes mellitus Depression Sibling Diabetes mellitus Depression Heart disease Other Depression Diabetes mellitus Heart disease Grandparent Depression Heart disease Social History Social History Social History: some history of marijuana Smoking status: Never smoker Alcohol intake: never Alcohol use details: none at present Substance use: former Substance use type: marijuana Lack of Transportation: No Lack of Food: Never True Current Housing: I Have Housing Concerned About Future Housing: No Difficulty Paying Gas/Electric Bills: No Difficulty Paying for Meds: No Currently Unemployed: No Education: High School Diploma/GED Difficulty w/ Childcare or Family Care: No Living arrangements: with family Additional living arrangements comments: CHILDREN Occupation/Education: occupation 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 There is no relevant family history pertinent to the presenting complaint. Exam Narrative:
[2024-04-08 18:18] VITALS: BP 115/75; PULSE 85; RESP 16; TEMP 37.2; O2SAT 100
--- NOTE | 2024-04-08 18:27 | ECG_ITS ---
Test Date: 2024-04-08 18:39:58 Measurements Intervals [place] Rate: 83 P: 66 MS: 137 QRS: 34 QRSD: 80 T: 20 QT: 352 QTc: 416 Interpretive Statements SINUS RHYTHM BORDERLINE ST-T WAVE ABNORMALITY- ANT/INF LEADS BORDERLINE ECG No previous ECG available for comparison Electronically Signed On 04-09-2024 07:47:16 CDT by Dewayne Weller D.O.
[2024-04-08 18:30] LABS: EDSTREPNEGPOS1 Presumptive Negative
== END 2024-04-08 18:50 | disposition home or self-care (01) ==
PROVIDERS: Emergency Provider Nurse Practitioner Family; PCP Nurse Practitioner Family
DX: J06.9 Acute upper respiratory infection, unspecified (principal); Z20.822 Contact with and (suspected) exposure to COVID-19; J45.909 Unspecified asthma, uncomplicated; R12 Heartburn; Z98.84 Bariatric surgery status
CPT/HCPCS: 87081; 87426; 87880; 93005; 99213; G0463

== ENCOUNTER 2024-07-10 15:36 | Outpatient (CLI) | payer OTHER, SELFPAY ==
--- NOTE | ~2024-07-10 | MR_ITS ---
EXAMINATION: MR lumbar spine wo con DATE: 07/10/2024 16:04 INDICATION: Anesthesia of skin TECHNIQUE: Magnetic resonance imaging (MRI) of the lumbar spine was performed without intravenous con trast. Sequences included sagittal T2-weighted FSE, sagittal T2-weighted FS FSE, sagittal T1-weighted FSE, and axial T2-weighted FSE. COMPARISON: None FINDINGS: 12 degrees lumbar levoscoliosis measured between T12 and L4. Sagittal alignment is normal. Vertebral body heights are normal. Normal marrow signal. Normal disc heights and signal. The conus medullaris terminates at L1. There is normal signal in the caudal spinal cord. Paravertebral soft tissues are un remarkable. The following disc levels are specifically discussed: T12-L1: The disc does not extend beyond the endplate margin. There is mild bilateral facet joint oste oarthritis. There is no neural foraminal stenosis. There is no central canal stenosis. L1-L2: Minimal right foraminal zone disc protrusion. There is mild bilateral facet joint osteoarthrit is. There is no neural foraminal stenosis. There is no central canal stenosis. L2-L3: Minimal right foraminal zone disc protrusion. There is mild left and minimal right facet joint osteoarthritis. There is no neural foraminal stenosis. There is no central canal stenosis. L3-L4: Mild bilateral foraminal zone disc protrusions. There is mild right and mild to moderate left facet joint osteoarthritis. There is mild bilateral neural foraminal stenosis. There is no central ca nal stenosis. L4-L5: Disc is minimally bulging. There is mild left and mild to moderate right facet joint osteoarth ritis. There is mild left and minimal right neural foraminal stenosis. There is no central canal sten osis. L5-S1: Disc is minimally bulging. There is mild left and mild to moderate right facet joint osteoarth ritis. There is mild left and minimal right neural foraminal stenosis. There is no central canal sten osis. IMPRESSION: 1. Minimal lumbar spondylosis. Reviewed, dictated and finalized at location [facility].
== END 2024-07-10 15:37 | disposition home or self-care (01) ==
LOC: ANHIMG 15:37
PROVIDERS: PCP Nurse Practitioner Family; Visit Provider Nurse Practitioner Family
DX: R20.0 Anesthesia of skin (principal); M47.896 Other spondylosis, lumbar region
CPT/HCPCS: 72148

== ENCOUNTER 2024-07-11 09:31 | Outpatient (CLI) | payer OTHER, SELFPAY ==
[2024-07-11 09:58] LABS: Basophils Percent Auto 0.4 % (0.2-1.2); Eosinophils Absolute Auto 0.1 K/mm3 (0-0.3); Eosinophils Percent Auto 1.5 % (0-4.4); Hematocrit 40.1 % (37.0-47.0); Hemoglobin 13.3 g/dL (12.0-15.0); Immature Granulocyte Absolute 0.04 K/mm3 (0.00-0.031); Immature Granulocyte Percent A 0.4 % (0-0.5); Lymphocytes Absolute Auto 1.99 K/mm3 (0.9-3.2); Lymphocytes Percent Auto 20.9 % (18.3-44.2); Mean Corpuscular HGB Conc 33.2 g/dl (32-36); Mean Corpuscular Hemoglobin 29.8 pg (26-34); Mean Corpuscular Volume 89.7 fl (80-100); Monocytes Absolute Auto 0.5 K/mm3 (0.1-0.6); Monocytes Percent Auto 4.9 % (2.6-8.5); Neutrophils Absolute Auto 6.8 K/mm3 (1.3-6.7); Neutrophils Percent Auto 71.9 % (45.5-73.1); Platelet Count Result 281 k/mm3 (150-375); Red Blood Count 4.47 M/mm3 (4.2-5.4); Red Cell Distribution Width 13.5 % (11.5-14.5); White Blood Count 9.5 K/mm3 (4.5-10.0)
[2024-07-11 10:09] LABS: Alanine Aminotransferase 21 U/L (6-35); Albumin Level 4.4 g/dL (3.5-5.1); Alkaline Phosphatase 65 U/L (38-126); Anion Gap 9 mmol/L (4-12); Aspartate Amino Transferase 27 U/L (14-36); Bilirubin,Total 1.2 mg/dL (0.2-1.3); Blood Urea Nitrogen 20 mg/dL (7-17); Calcium 9.1 mg/dL (8.4-10.2); Carbon Dioxide 26 mmol/L (22-30); Chloride 105 mmol/L (98-107); Estimated Glomerular Filt Rate > 60; Glucose 90 mg/dL (65-110); Magnesium 1.9 mg/dL (1.6-2.3); Sodium 140 mmol/L (137-145)
[2024-07-11 10:34] LABS: Iron 100 ug/dL (37-170)
[2024-07-11 10:38] LABS: Cortisol Baseline 4.52 ug/dL
[2024-07-11 10:42] LABS: Percent Iron Saturation 28 % (20-50)
[2024-07-11 11:08] LABS: Ferritin 9.28 ng/mL (6.24-137)
[2024-07-14 22:08] LABS: Adrenocorticotropic Hormone 5 pg/mL (6-50)
== END 2024-07-11 09:32 | disposition home or self-care (01) ==
PROVIDERS: PCP Nurse Practitioner Family; Visit Provider Internal Medicine Endocrinology, Diabetes & Metabolism
DX: R20.0 Anesthesia of skin (principal); G43.909 Migraine, unspecified, not intractable, without status migrainosus; K91.2 Postsurgical malabsorption, not elsewhere classified
CPT/HCPCS: 36415; 80053; 82024; 82533; 82607; 82728; 83540; 83550; 83735; 85025

== ENCOUNTER 2024-07-24 06:38 | Outpatient (CLI) | payer OTHER, SELFPAY | END 2024-07-24 06:39 | disposition home or self-care (01) | LOC: ANHLAB 06:39 | PROVIDERS: PCP Nurse Practitioner Family; Visit Provider Internal Medicine Endocrinology, Diabetes & Metabolism | DX: R79.89 Other specified abnormal findings of blood chemistry (principal); K91.2 Postsurgical malabsorption, not elsewhere classified | CPT/HCPCS: 36415; 82533; 96372; J0834 ==

== ENCOUNTER 2024-08-17 15:57 | Emergency (ER) | payer OTHER, SELFPAY ==
--- NOTE | ~2024-08-17 | XR_ITS ---
EXAMINATION: XR chest 2V DATE: 08/17/2024 17:17 INDICATION: Chest pain. Weakness. TECHNIQUE: Frontal and lateral views of the chest were obtained. COMPARISON: Chest 2 views 08/25/2021 FINDINGS: There is no pneumonia, pleural effusion, or pneumothorax. The heart size is normal. There a re surgical clips in the abdomen. IMPRESSION: 1. No acute cardiopulmonary disease. Reviewed, dictated and finalized at location A. S DIRECTOR
--- NOTE | 2024-08-17 16:03 | ECG_ITS ---
Test Date: 2024-08-17 16:29:07 Measurements Intervals [place] Rate: 95 P: 74 NM: 134 QRS: 48 QRSD: 75 T: -2 QT: 328 QTc: 413 Interpretive Statements SINUS RHYTHM NONSPECIFIC ST AND T-WAVE ABNORMALITY Compared to ECG 04/08/2024 18:39:58 NO SIGNIFICANT CHANGES Electronically Signed On 08-18-2024 12:27:18 [employer]IGHT [employer]K OFFICER by Richar Chowdhury M.D.
[2024-08-17 16:20] VITALS: BP 132/81; PULSE 117; RESP 14; TEMP 37; O2SAT 95
[2024-08-17 16:32] VITALS: O2SAT 100
[2024-08-17 16:33] VITALS: PULSE 83
[2024-08-17] MEDS: ONDANSETRON INJ 4 MG/2 ML VIAL IV PUSH (16:45)
[2024-08-17 16:46] LABS: Basophils Percent Auto 0.2 % (0.2-1.2); Eosinophils Absolute Auto 0.1 K/mm3 (0-0.3); Eosinophils Percent Auto 0.6 % (0-4.4); Hematocrit 40.7 % (37.0-47.0); Hemoglobin 13.6 g/dL (12.0-15.0); Immature Granulocyte Absolute 0.03 K/mm3 (0.00-0.031); Immature Granulocyte Percent A 0.4 % (0-0.5); Lymphocytes Absolute Auto 0.69 K/mm3 (0.9-3.2); Lymphocytes Percent Auto 8.1 % (18.3-44.2); Mean Corpuscular HGB Conc 33.4 g/dl (32-36); Mean Corpuscular Hemoglobin 29.4 pg (26-34); Mean Corpuscular Volume 87.9 fl (80-100); Mean Platelet Volume 10.7 fl (7.4-10.4); Monocytes Absolute Auto 0.3 K/mm3 (0.1-0.6); Monocytes Percent Auto 3.2 % (2.6-8.5); Neutrophils Absolute Auto 7.5 K/mm3 (1.3-6.7); Neutrophils Percent Auto 87.5 % (45.5-73.1); Platelet Count Result 262 k/mm3 (150-375); Red Blood Count 4.63 M/mm3 (4.2-5.4); Red Cell Distribution Width 13.8 % (11.5-14.5); White Blood Count 8.5 K/mm3 (4.5-10.0)
[2024-08-17] MEDS: SODIUM CHLORIDE 0.9% IV 1,000 ML 999 ML IV CONT (16:46)
[2024-08-17] MEDS: FAMOTIDINE 20 MG/2 ML VIAL IV PUSH (16:47)
[2024-08-17] MEDS: PANTOPRAZOLE SODIUM IV 40 MG VIAL IV PUSH (16:50)
[2024-08-17 16:55] LABS: Alanine Aminotransferase 23 U/L (6-35); Albumin Level 4.3 g/dL (3.5-5.1); Alkaline Phosphatase 66 U/L (38-126); Anion Gap 8 mmol/L (4-12); Aspartate Amino Transferase 38 U/L (14-36); Bilirubin,Total 2.3 mg/dL (0.2-1.3); Blood Urea Nitrogen 17 mg/dL (7-17); Calcium 8.9 mg/dL (8.4-10.2); Carbon Dioxide 25 mmol/L (22-30); Chloride 105 mmol/L (98-107); Estimated Glomerular Filt Rate > 60; Glucose 101 mg/dL (65-110); Lipase 40 U/L (23-300); Potassium 3.3 mmol/L (3.4-5.0); Sodium 138 mmol/L (137-145)
[2024-08-17 17:07] LABS: Troponin I < 0.012 ng/mL (0.000-0.034)
--- NOTE | 2024-08-17 17:07 | ED.GENADULT ---
HPI - General Adult General Chief complaint: Chest Pain Stated complaint: n/v/d, cp Time Seen by Provider: 08/17/24 16:25 History of Present Illness HPI narrative: 29-year-old female presents emergency department for evaluation for chest pain this been ongoing for the last week. Patient states she has also been having intermittent fevers. Patient does have a prior history of Mobitz type 2 with sinus tachycardia and does follow-up with cardiology. Patient denies any prior history of PE or DVT. Does have some chest pressure at this time. Patient was having some tachycardia last night but no tachycardia currently. Patient does follow-up with Dr. Tuttle for cardiology Related Data Allergies Allergy/AdvReac Type Severity Reaction Status Date / Time topiramate AdvReac Severe Other Verified 08/17/24 16:27 [id number] Antimigraine AdvReac Severe Other Verified 08/17/24 16:27 Agents NSAIDS (Non-Steroidal AdvReac Intermediate Gastrointestinal Verified 08/17/24 16:27 Anti-Inflamma Upset phentermine AdvReac Intermediate Palpitation Verified 08/17/24 16:27 s iohexol AdvReac Mild Hives Verified 08/17/24 16:27 [From contrast - CT, X-RAY] latex AdvReac Mild Rash Verified 08/17/24 16:27 Review of Systems Review of Systems: All systems reviewed & are unremarkable except as noted in HPI and below PMFSH Past Medical History Medical History ADHD Can't have extended release forms of meds due to hx bariatric surgery Asthma Chest pain Gastric ulcer Heartburn Hypoglycemia following gastrointestinal surgery Migraine Palpitation Second degree AV block Syncope Surgical History Surgical History H/O section (09/21/18) H/O: hysterectomy (~01/2023) History of gastric bypass (~2021) S/P (05/26/12) S/P tubal ligation (09/2018) Family History Family History Father Depression Mother Heart disease Diabetes mellitus Depression Sibling Diabetes mellitus Depression Heart disease Other Depression Diabetes mellitus Heart disease Grandparent Depression Heart disease Social History Social History Social History: some history of marijuana Very confident with medical forms/assistance with childcare and food in last 12 months 05/31/24 Smoking status: Never smoker Alcohol intake: never Alcohol use details: none at present Substance use: former Substance use type: marijuana Do You Feel Safe in your Home?: Yes Lack of Transportation: No Lack of Food: Never True Current Housing: I Have Housing Concerned About Future Housing: No Difficulty Paying Gas/Electric Bills: No Difficulty Paying for Meds: No Currently Unemployed: No Education: High School Diploma/GED Difficulty w/ Childcare or Family Care: No Living arrangements: with family Additional living arrangements comments: CHILDREN Occupation/Education: occupation 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 HEAD: normocephalic, atraumatic. EYES: PERRLA/EOMI, conjunctivae clear. NOSE: Normal no drainage NECK: Supple. No adenopathy, no masses. RESPIRATORY: Airway patent, respirations nonlabored. Clear to auscultation bilaterally, no rales, rhonchi, wheezing. CARDIOVASCULAR: Regular rate and rhythm without murmurs rubs or gallops. ABDOMINAL: Soft, nontender, nondistended, normal bowel sounds MUSCULOSKELETAL: Moves all extremities. Strength/ROM intact, No edema, No calf tenderness. NEURO: Alert. Cranial nerves II through XII intact. SKIN: Warm, dry. Normal Color Course Course Emergency Course: Patient was updated the results of the workup and plan for discharge and close follow-up Vital Signs Vital signs: Vital Signs Temperature 98.6 F 08/17/24 16:20 Pulse Rate 117 H 08/17/24 16:20 Respiratory Rate 14 08/17/24 16:20 Blood Pressure 132/81 08/17/24 16:20 Pulse Oximetry 95 08/17/24 16:20 Oxygen Delivery Room Air 08/17/24 16:20 Temperature 98.6 F 08/17/24 16:20 Pulse Rate 83 08/17/24 16:33 Respiratory Rate 14 08/17/24 16:20 Blood Pressure 132/81 08/17/24 16:20 Pulse Oximetry 100 08/17/24 16:32 Oxygen Delivery Room Air 08/17/24 16:32 Medical Decision Making MDM Narrative Medical decision making narrative: 29-year-old female presented emergency department for evaluation for intermittent fever cough congestion and tachycardia with associated pleuritic chest pain. Patient is afebrile with no leukocytosis and a hemoglobin of 13.6 INR is 1.0, D-dimer was less than 0.48. Patient's troponin was negative. Chest x-ray showed no acute cardiopulmonary abnormality. Patient did feel improved with IV Toradol. Suspect viral etiology due to her recent fever cough and congestion. Patient's chest pain is pleuritic in nature and most likely pleurisy. Patient family were updated on the results of the workup patient was comfortable the plan for discharge and close follow-up. Patient is still having some mild nausea and she will be provided additional nausea medication for home. Patient was also encouraged close follow-up with Cardiology. Differential Diagnosis Differential Diagnosis: Pneumonia, pneumothorax, pulmonary embolism Medical Records Medical records reviewed: Yes I reviewed the external patient's medical records. Vital Signs Vital Signs: Vital Signs Temperature 98.6 F 08/17/24 16:20 Pulse Rate 117 H 08/17/24 16:20 Respiratory Rate 14 08/17/24 16:20 Blood Pressure 132/81 08/17/24 16:20 Pulse Oximetry 95 08/17/24 16:20 Oxygen Delivery Room Air 08/17/24 16:20 Temperature 98.6 F 08/17/24 16:20 Pulse Rate 83 08/17/24 16:33 Respiratory Rate 14 08/17/24 16:20 Blood Pressure 132/81 08/17/24 16:20 Pulse Oximetry 100 08/17/24 16:32 Oxygen Delivery Room Air 08/17/24 16:32 Lab Data Lab results reviewed: Yes I reviewed the patient's lab results. 08/17/24 16:36 08/17/24 16:36 Labs: Lab Results 08/17/24 08/17/24 08/17/24 Range/Units 16:35 16:36 18:18 WBC 8.5 (4.5-10.0) K/mm3 RBC 4.63 (4.2-5.4) M/mm3 Hgb 13.6 (12.0-15.0) g/dL Hct 40.7 (37.0-47.0) % MCV 87.9 (80-100) fl MCH 29.4 (26-34) pg MCHC 33.4 (32-36) g/dl RDW 13.8 (11.5-14.5) % Plt Count 262 (150-375) k/mm3 MPV 10.7 H (7.4-10.4) fl Immature Gran % (Auto) 0.4 (0-0.5) % Neut % (Auto) 87.5 H (45.5-73.1) % Lymph % (Auto) 8.1 L (18.3-44.2) % [place] % (Auto) 3.2 (2.6-8.5) % Eos % (Auto) 0.6 (0-4.4) % Baso % (Auto) 0.2 (0.2-1.2) % Lymph # (Auto) 0.69 L (0.9-3.2) K/mm3 [place] # (Auto) 0.3 (0.1-0.6) K/mm3 Eos # (Auto) 0.1 (0-0.3) K/mm3 Baso # (Auto) 0.0 (0.0-0.1) K/mm3 Abs Immat Gran (auto) 0.03 (0.00-0.031) K/mm3 Absolute Neuts (auto) 7.5 H (1.3-6.7) K/mm3 Absolute Nucleated RBC 0.000 (0.0-0.012) K/mm3 Nucleated RBC % 0.0 (0.0-0.2) % PT 13.7 (11.1-14.7) Seconds INR 1.0 APTT 24.9 (22.3-36.8) Seconds D-Dimer 0.43 (<0.48) ug/mL Sodium 138 (137-145) mmol/L Potassium 3.3 L (3.4-5.0) mmol/L Chloride 105 (98-107) mmol/L Carbon Dioxide 25 (22-30) mmol/L Anion Gap 8 (4-12) mmol/L BUN 17 (7-17) mg/dL Creatinine 0.60 L (0.7-1.0) mg/dL Estim Creat Clear Calc Not Reportable Estimated GFR > 60 (59 - ) Glucose 101 (65-110) mg/dL Calcium 8.9 (8.4-10.2) mg/dL Total Bilirubin 2.3 H (0.2-1.3) mg/dL AST 38 H (14-36) U/L ALT 23 (6-35) U/L Alkaline Phosphatase 66 (38-126) U/L Troponin I < 0.012 (0.000-0.034) ng/mL Total Protein 7.0 (6.3-8.2) g/dL Albumin 4.3 (3.5-5.1) g/dL Lipase 40 (23-300) U/L Influenza A (RT-PCR) Negative (Negative) Influenza B (RT-PCR) Negative (Negative) RSV (RT-PCR) Negative (Negative) SARS-CoV-2 RNA (RT-PCR) Negative (Negative) Imaging Data Radiologist's impression: Impressions Chest X-Ray 08/17/24 17:19 IMPRESSION: 1. No acute cardiopulmonary disease. Discharge Plan Discharge Clinical Impression: Pleuritic chest pain, Acute viral syndrome Patient Disposition: Home, Self-Care Condition: Stable Instructions: Antibiotic Form, Chest Pain (ED), Viral Syndrome (ED) Additional Instructions: Tylenol for pain control. Placed Tylenol with Terry as needed for additional pain control. Did not take Tylenol Terry the same time as both contain acetaminophen. Have close follow-up with Cardiology. If you have any worsening symptoms then please call or return to the emergency department. Zofran for nausea control, Reglan as needed for additional nausea control. Follow a clear liquid diet and advance to bland diet as tolerated. Prescriptions: New ondansetron 4 mg tablet,disintegrating 4 mg PO Q8H PRN (Reason: nausea and vomiting) Qty: 14 0RF metoclopramide HCl [Reglan] 10 mg tablet 10 mg PO Q6H PRN (Reason: nausea and vomiting) Qty: 14 0RF hydrocodone-acetaminophen 5-325 mg tablet 1 tablet PO Q8H PRN (Reason: pain) Qty: 14 0RF No Action glucose [Dex4 Glucose] 4 gram tablet,chewable 4 g PO Q15M PRN (Reason: hypoglycemia) Qty: 100 5RF Rx Instructions: until symptoms of low blood sugar are controlled (DME) FreeStyle Sindi 3 Sensor Device See Rx Instructions .ROUTE .MEDSUPPLY Qty: 6 1RF Rx Instructions: As directed (DME) FreeStyle Sindi 3 [place] Misc See Rx Instructions .Route Qty: 1 0RF Rx Instructions: As directed acarbose 25 mg tablet 25 mg PO QID 90 Days Qty: 360 3RF Rx Instructions: take pill before each meal dextroamphetamine-amphetamine [Adderall] 15 mg tablet 15 mg PO DAILY Qty: 30 0RF Gvoke 1 mg/0.2 mL solution 1 mg subcut Q20M PRN (Reason: hypoglycemia) Qty: 0.2 5RF Rx Instructions: until target blood sugar attained Ubrelvy 100 mg tablet 100 mg PO ONCE Qty: 16 5RF Rx Instructions: as a single dose; may repeat once in >=2 hours after first dose if needed escitalopram oxalate 5 mg tablet 5 mg PO DAILY Qty: 90 1RF Follow-up/Referrals: Es Martin APRN [Primary Care Provider] -
[2024-08-17 17:08] LABS: Partial Thromboplastin Time 24.9 Seconds (22.3-36.8); Prothrombin Time 13.7 Seconds (11.1-14.7)
[2024-08-17] MEDS: KETOROLAC 15 MG/ML VIAL (*BKC) IV PUSH (17:20)
[2024-08-17 17:52] LABS: D Dimer 0.43 ug/mL (<0.48)
[2024-08-17] MEDS: METOCLOPRAMIDE HCL INJ 10 MG/2 ML VIAL IV PUSH (18:43)
[2024-08-17 19:16] LABS: Influenza A QL RT-PCR Negative (Negative); Influenza B QL RT-PCR Negative (Negative); RSV RNA, RT-PCR Negative (Negative); SARS-CoV-2 RNA PCR Negative (Negative)
== END 2024-08-17 18:50 | disposition home or self-care (01) ==
PROVIDERS: Emergency Provider Emergency Medicine; PCP Nurse Practitioner Family
DX: N39.0 Urinary tract infection, site not specified (principal); J45.909 Unspecified asthma, uncomplicated; Z20.822 Contact with and (suspected) exposure to COVID-19
CPT/HCPCS: 36415; 71046; 80053; 83690; 84484; 85025; 85380; 85610; 85730; 87637; 93005; 96361; 96374; 96375; 99284; J1885; J2405; J2470; J2765; J7030

== ENCOUNTER 2024-08-21 14:29 | Emergency (ER) | payer OTHER, SELFPAY ==
--- NOTE | 2024-08-21 14:33 | ED_ITS ---
HPI - Female Genitourinary General Chief complaint: Urogenital-Female Stated complaint: Urogenital-Female Time Seen by Provider: 08/21/24 14:34 Source: patient Mode of arrival: ambulatory Limitations: no limitations History of Present Illness HPI Narrative: Patient is a 29-year-old female who presents with 3 days of suprapubic pressure, low back pain. Burning imaging started last night. Has tried Monistat with worsening symptoms today. Took Tylenol. Has history of HPV but no concern for new STDs. MD elicited complaint: dysuria Related Data Home Medications Medication Instructions Recorded Confirmed ubrogepant 100 mg tablet (Ubrelvy) 100 mg PO PRN PRN Migraine Headache 08/21/24 08/21/24 valacyclovir 500 mg tablet 500 mg PO PRN PRN Cold Sores 08/21/24 08/21/24 Allergies Allergy/AdvReac Type Severity Reaction Status Date / Time NSAIDS (Non-Steroidal AdvReac Intermediate Gastrointestinal Verified 08/21/24 14:37 Anti-Inflamma Upset phentermine AdvReac Intermediate Palpitation Verified 08/21/24 14:37 s topiramate AdvReac Intermediate Other Verified 08/21/24 14:37 [id number] Antimigraine AdvReac Intermediate Palpitation Verified 08/21/24 14:37 Agents s iohexol AdvReac Mild Hives Verified 08/21/24 14:37 [From contrast - CT, X-RAY] latex AdvReac Mild Rash Verified 08/21/24 14:37 Review of Systems Review of Systems: All systems reviewed & are unremarkable except as noted in HPI and below Constitutional: Constitutional: Denies chills, Denies fever(s), Denies headache(s), Denies malaise and Denies weakness Eyes: Eyes: Denies change in vision, Denies eye discharge and Denies irritation ENT: Denies otalgia, Denies headache(s), Denies nasal congestion, Denies nasal discharge, Denies sinus pain and Denies sore throat Cardiovascular: Cardiovascular: Denies chest pain, Denies edema, Denies palpitations and Denies dyspnea Respiratory: Respiratory: Denies cough and Denies dyspnea Gastrointestinal: Gastrointestinal: Denies abdominal pain, Denies diarrhea, Denies nausea and Denies vomiting Genitourinary: Genitourinary: Denies hematuria, Reports nocturia, Reports genital pruritis, Reports dysuria, Denies flank pain and Reports urinary urgency Musculoskeletal: Musculoskeletal: Denies back pain and Denies numbness Integumentary/Breasts: Skin/Breast: Denies pruritus and Denies rash Neurologic: Denies headache(s), Denies numbness and Denies weakness Psychiatric: Psychiatric: Reports no additional psychiatric complaints Endocrine: Endocrine: Denies palpitations PMFSH Past Medical History Medical History ADHD Can't have extended release forms of meds due to hx bariatric surgery Asthma Chest pain Gastric ulcer Heartburn Hypoglycemia following gastrointestinal surgery Migraine Palpitation Second degree AV block Syncope Surgical History Surgical History H/O section (09/21/18) H/O: hysterectomy (~01/2023) History of gastric bypass (~2021) S/P (05/26/12) S/P tubal ligation (09/2018) Family History Family History Father Depression Mother Heart disease Diabetes mellitus Depression Sibling Diabetes mellitus Depression Heart disease Other Depression Diabetes mellitus Heart disease Grandparent Depression Heart disease Social History Social History Social History: some history of marijuana Very confident with medical forms/assistance with childcare and food in last 12 months 05/31/24 Smoking status: Never smoker Alcohol intake: never Alcohol use details: none at present Substance use: former Substance use type: marijuana Do You Feel Safe in your Home?: Yes Lack of Transportation: No Lack of Food: Never True Current Housing: I Have Housing Concerned About Future Housing: No Difficulty Paying Gas/Electric Bills: No Difficulty Paying for Meds: No Currently Unemployed: No Education: High School Diploma/GED Difficulty w/ Childcare or Family Care: No Living arrangements: with family Additional living arrangements comments: CHILDREN Occupation/Education: occupation 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 There is no relevant family history pertinent to the presenting complaint. Exam Const: General: cooperative, healthy appearing, comfortable, no acute distress and well nourished Nutritional Appearance: well nourished Orientation/consciousness: patient oriented x3 HENMT: Head: normocephalic and atraumatic Ears: external ears normal Face/Nose/Sinus: Normal external nose present, Normal nares present and normal facial exam Face and sinus: normal facial exam Eyes: General: appearance normal, both eyes and all related structures Pu pils: Equal, round and reactive pupils present EOM: EOMs intact bilaterally Neck: Neck: normal visual inspection, full ROM and supple Chest: Chest palpation & inspection: normal inspection of the chest Resp: Effort & Inspection: normal respiratory effort and able to speak in complete sentences Cardio: Rate: regular rate Rhythm: regular rhythm GI: Inspection: normal to inspection GI Palp: No abdominal tenderness and Yes Soft to palpation : General: Yes no CVA tenderness Back/Spine/Pelvis: Back: no CVA tenderness Skin: General skin exam: normal color and no rashes or lesions noted Neuro: General: patient oriented x3 and moves all extremities Cranial nerves: Yes Equal, round and reactive pupils present Extrem: General: normal to inspection and full ROM Psych: Appearance: grossly normal and well kempt Course Course Emergency Course: Patient is aware of diagnosis, understands and agrees to treatment plan. Anticipatory guidance given. Patient agrees to follow-up as directed and is amber re of reasons to seek care at the emergency department. Portions of this record may have been created with voice recognition software Level of Care: Express Care Visit Vital Signs Vital signs: Vital Signs Temperature 36.5 C 08/21/24 14:39 Pulse Rate 81 08/21/24 14:39 Respiratory Rate 18 08/21/24 14:39 Blood Pressure 102/62 08/21/24 14:39 Pulse Oximetry 100 08/21/24 14:39 Oxygen Delivery Room Air 08/21/24 14:39 Temperature 36.5 C 08/21/24 14:39 Pulse Rate 81 08/21/24 14:39 Respiratory Rate 18 08/21/24 14:39 Blood Pressure 102/62 08/21/24 14:39 Pulse Oximetry 100 08/21/24 14:39 Oxygen Delivery Room Air 08/21/24 14:39 Reviewed MDM - Female Genitourinary MDM Narrative Medical decision making narrative: Exam findings and UA show probable UTI; patient is non-toxic appearing and is in no distress. No CMT, adnexal tenderness, or evidence of pelvic etiology. Patient is appropriate for outpatient treatment and follow-up. Differential Diagnosis Differential diagnosis: Likely urinary tract infection, bacterial vaginosis, trichomoniasis, cervicitis, vaginitis and cystitis Medical Records Attestation: I reviewed the patient's medical records. Lab Data Attestation: I reviewed the patient's lab results. Labs: Lab Results 08/21/24 Range/Units 14:39 POC Urine Color Light/pale POC Urine Clarity Cloudy POC Urine pH 8.5 POC Ur Specif Avery 1.015 POC Urine Protein Negative (Negative) POC Ur Glucose (UA) Negative (Negative) POC Urine Ketones Negative (Negative) POC Urine Blood Negative (Negative) POC Urine Nitrite Negative (Negative) POC Urine Bilirubin Negative (Negative) POC Urine Urobilinogen 1.0 POC U Leukocyte Esteras 3+ (Negative) Discharge Plan Discharge Clinical Impression: Urinary tract infection Patient Disposition: Home, Self-Care Condition: Stable Instructions: Urinary Tract Infection in Women (ED) Additional Instructions: We will send a urine culture to the lab, based on your symptoms and urine dip we will start treatment today. If culture comes back and bacteria is not susceptible to antibiotic, your prescription may change. Your symptoms should improve within a day of starting antibiotics, but you should finish all the antibiotic pills you get. Otherwise your infection might come back Continue with increased water intake. Take Tylenol or ibuprofen as needed for pain or fever. Follow-up with primary care provider for urine recheck or see ER visit if condition worsens with high fever, nausea, vomiting, severe back pain Take 1 pill after all antibiotics are complete Do not use any scented soaps, tampons or pads. Make sure to always urinate after sex. Use non scented, non flavored condoms. Do not sit and bath with scented soaps or oils. Where cotton underwear and change underwear after exercise. Prescriptions: New fluconazole 150 mg tablet 150 mg PO ONCE Qty: 1 0RF Rx Instructions: as a single dose sulfamethoxazole-trimethoprim 800-160 mg tablet 1 tablet PO Q12H 5 Days Qty: 10 0RF No Action Ubrelvy 100 mg tablet 100 mg PO PRN PRN (Reason: Migraine Headache) Rx Instructions: as a single dose; may repeat once in >=2 hours after first dose if needed valacyclovir 500 mg tablet 500 mg PO PRN PRN (Reason: Cold Sores) glucose [Dex4 Glucose] 4 gram tablet,chewable 4 g PO Q15M PRN (Reason: hypoglycemia) Qty: 100 5RF Rx Instructions: until symptoms of low blood sugar are controlled (DME) FreeStyle Sindi 3 Sensor Device See Rx Instructions .ROUTE .MEDSUPPLY Qty: 6 1RF Rx Instructions: As directed (DME) FreeStyle Sindi 3 [place] Misc See Rx Instructions .Route Qty: 1 0RF Rx Instructions: As directed acarbose 25 mg tablet 25 mg PO QID 90 Days Qty: 360 3RF Rx Instructions: take pill before each meal dextroamphetamine-amphetamine [Adderall] 15 mg tablet 15 mg PO DAILY Qty: 30 0RF ondansetron 4 mg tablet,disintegrating 4 mg PO Q8H PRN (Reason: nausea and vomiting) Qty: 14 0RF Gvoke 1 mg/0.2 mL solution 1 mg subcut Q20M PRN (Reason: hypoglycemia) Qty: 0.2 5RF Rx Instructions: until target blood sugar attained escitalopram oxalate 5 mg tablet 5 mg PO DAILY Qty: 90 1RF Follow-up/Referrals: Es Martin APRN [Primary Care Provider] - Stand Alone Forms: Work/School Release IP Time of Disposition: 15:07
[2024-08-21 14:39] VITALS: BP 102/62; PULSE 81; RESP 18; TEMP 36.5; O2SAT 100
[2024-08-21 14:46] LABS: EDUAAPPEAR Cloudy; EDUABILI Negative (Negative); EDUABLOOD Negative (Negative); EDUACOLOR1 Light/Pale; EDUAGLUCOSE Negative (Negative); EDUAKETONE Negative (Negative); EDUALEUKO 3+ (Negative); EDUANITRATE Negative (Negative); EDUAPH 8.5; EDUAPROTEIN Negative (Negative); EDUASPGRAVITY 1.015
== END 2024-08-21 15:12 | disposition home or self-care (01) ==
PROVIDERS: Emergency Provider Nurse Practitioner Family; PCP Nurse Practitioner Family
DX: N39.0 Urinary tract infection, site not specified (principal); J45.909 Unspecified asthma, uncomplicated; R12 Heartburn; Z98.84 Bariatric surgery status
CPT/HCPCS: 81003; 87086; 99213; G0463

== ENCOUNTER 2025-01-04 07:44 | Outpatient (CLI) | payer OTHER, SELFPAY ==
--- NOTE | ~2025-01-04 | CT_ITS ---
Non-contrast CT scan of the Abdomen and Pelvis Clinical indication: Left lower quadrant pain Technique: 2.5 mm axial scans were obtained through the abdomen and pelvis without intravenous or or al contrast. Dose reduction technique was used on this scan by utilizing automated exposure control a nd iterative reconstruction technique. The dose-length product (DLP) was 195.23 mGy-cm. COMPARISON: 03/06/2024 Findings: Images through the lung bases reveal no abnormalities. There is no evidence of renal or ureteral calculi. The kidneys and the ureters are nondilated. The liver, spleen, pancreas, gallbladder, and adrenals appear normal. There is no aortic aneurysm. There is no evidence of bowel obstruction. Evidence of prior bariatric surgery. Images through the pelvis were performed. There is no evidence of ascites or lymphadenopathy. Urinary bladder unremarkable. No pelvic mass seen. Impression: No significant abnormality seen. Reviewed, dictated and finalized at [facility]. Impression: No significant abnormality seen.
--- OUTSIDE RECORDS SUMMARY | 2025-01-04 07:49 | XMS_ITS | Clinical Summary ---
Author Organization [facility] Address [address] [place] [address] Care Team Providers Care Installment Dealer Name Role Phone Es Martin APRN-EPI Primary Care Provider Source Comments [facility],non-owned Affiliates and Associated Physician Practices is amultiple site organization consisting of ambulatory clinics and hospital sitesin [place], [place], [place] and [place]. This disclosure is being madepursuant to the Care Everywhere program and may not contain all information available regarding this patient. Last updated 18.[facility] Allergies Active Allergy Reactions Criticality Noted Date Comments Contrast-Iodinated Agents For Ct/Other Itching 12/08/2022 Hives Latex Other 12/25/2021 Blisters. Latex Bandaid Nsaids Other 11/29/2023 Hx of navarro-en-y Phentermine Palpitations 10/03/2021 Medications * This document contains information received from the source organization and may not represent a complete record from that organization. * Be aware that medications may not be up to date on this document. Alwaysverify current medications with the patient. multivitamin daily tabletIndications: do not restart until 2 weeks after surgery Take 1 (one) tablet by mouth daily with food Reasons: do not restart until 2 weeks after surgery 12/17/19 22 Active CALCIUM CITRATE PO Take 500 mg by mouth 3 times daily Active Gvoke Kit 1 MG/0.2ML SOLN 06/23/20 24 Active Ubrelvy 100 MG tablet Take 1 (one) tablet by mouth once as needed 07/03/20 24 Active glucose (Dex4) 4 g chew tablet Take 1 (one) tablet by mouth as needed 06/08/20 24 Active Continuous Glucose Sensor (FreeStyle Sindi 3 Sensor) [facility] Use as directed Acti ve Valtrex 1 g tablet Take 1 tablet every day by oral route as directed for 5 days. 11/01/19 25 Active Valtrex 500 MG tablet Take 1 tablet daily by mouth for suppressive therapy 11/01/19 25 Active bisacodyl EC 5 MG tablet At 4 pm take 2 tabs with 8 oz of water and then at 8 pm take 2 tabs with 8 oz of water 4 tablet 12/23/19 25 Active polyethylene glycol 3350 (Miralax) 17 GM/SCOOP powder 8.3 oz bottle (238 gm). Mix with 64 oz clear liquid for colonoscopy prep 238 g 12/23/19 25 Active vitamin D, ergocalciferol, (Drisdol) 1.25 MG (49329 UT) capsuleIndications :Vitamin D Deficiency Take 1 (one) capsule by mouth every 7 days Reasons: Vitamin D Deficiency 4 capsule 3 12/23/19 25 Active Probiotic Product (Personal Factory) capsuleIndications :Bariatric surgery status Take 1 (one) capsule by mouth once daily 30 capsule 3 09/21/19 25 025 Discontin ued(Tx Complete) acetaminophen (TYLENOL) 500 MG tabletIndications: Bariatric surgery status Pt is to take 2 tabs po every 8 hours for basal pain. May take additional 1 tab twice daily if needed. Pt to not exceed 4000mg daily. 40 tablet 09/21/19 25 025 Discontin ued(Tx Complete) docusate sodium (Colace) 100 MG capsuleIndications :Bariatric surgery status Take 1 (one) capsule by mouth 2 times daily 30 capsule 09/21/19 25 025 Discontin ued(Tx Complete) oxyCODONE, immediate release, (Roxicodone) 5 MG tabletIndications: Status post panniculectomy Take 1 (one) tablet by mouth every 4 hours as needed for Pain 5 tablet 10/04/19 25 025 Discontin ued(List Clean-Up) Active Problems Problem Noted Date Diagnosed Date Abdominal pannus 10/03/2024 Herpes simplex type 1 infection 04/22/2023 10/29/2023 Morbid obesity 12/15/2021 Panic attack 07/03/2021 10/29/2023 Attention deficit hyperactiv ity disorder, 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 Migraine 06/11/2020 Gastroesophageal reflux disease 05/21/2020 test positive 05/21/2020 Mobitz type 1 second degree AV block 05/08/2020 PVC's (premature ventricular contractions) 05/08 Chest pain 04/10/2020 Palpitations 04/10/2020 Polydipsia 04/10/2020 Polyuria 04/10/2020 Syncope and collapse 04/10/2020 Obesity 02/13/2020 Vitamin D deficiency 01/12/2020 Pain in right arm 01/11/2020 Anxiety 09/01/2018 Depressive disorder 09/01/2018 Posttraumatic stress disorder 09/01/2018 Encounters Date Type Department Care Team Description 12/22/2024 9:57 AM CDT - 12/22/2024 11:59 PM CDT Hospital Encounter [facility] [address] [place], [place] [id number] Neena Arellano APRN-CNP Discharge Disposition: Home or Self Care 12/22/2024 9:30 AM CDT Clinical Support [facility] [address] [place] [phone] S/P gastric bypass 12/22/2024 9:00 AM CDT Office Visit [facility] [address] [place] [phone] Neena Arellano APRN-CNP Bariatric surgery status (Primary Dx); Status post gastric bypass for obesity; History of morbid obesity; Vitamin D deficiency; Hypoglycemia following gastrointestinal surgery (HCC); History of iron deficiency; LLQ abdominal pain; Bloating; Hematochezia 12/22/2024 Telephone [facility] [address] [place] [phone] Neena Arellano APRN-CNP Procedure Prior Auth Request 12/22/2024 Orders Only [facility] [address] [place] [phone] Neena Arellano APRN-CNP Vitamin D deficiency ; Bariatric surgery status 12/05/2024 Telephone [facility] [address] [place] [address] Neena Arellano R, FISHERIES DIVER-TARGETING ACQUISITION OFFICER Pain Abdominal 11/02/2024 9:30 AM NEEDLE CONTROL CHENILLER Office Visit [facility] [address] [place] [address] Adan, eNena R, FISHERIES DIVER-TARGETING ACQUISITION OFFICER Status post panniculectomy (Primary Dx) 10/26/2024 10:30 AM NEEDLE CONTROL CHENILLER Office Visit [facility] [address] [facility] [place] [address] Neena Arellano R, FISHERIES DIVER-TARGETING ACQUISITION OFFICER Status post panniculectomy (Primary Dx) 10/16/2024 11:00 AM NEEDLE CONTROL CHENILLER Office Visit [facility] [address] [place] [address] Neena Arellano R, FISHERIES DIVER-TARGETING ACQUISITION OFFICER Status post panniculectomy (Primary Dx) 10/16/2024 Telephone [facility] [address] [place] [address] Cary Brooks MD Post-Op 10/12/2024 10:30 AM NEEDLE CONTROL CHENILLER Office Visit [facility] [address] [place] [address] Neena Arellano R, FISHERIES DIVER-TARGETING ACQUISITION OFFICER Status post panniculectomy (Primary Dx) from Last 3 Months Immunizations Immunization Administration Dates Next Due HEP A PEDS 2 DOSE 03/22/2009,04/28/2006 Human Papilloma Virus Quadrivalent Vaccine 03/27 Human Papilloma Virus Vaccine 05/28/2009, 009 MENINGOCOCCAL ACWY (MCV4P) VAC IM 03/27/2010 TDAP (7yrs+) 04/28/2006 Family History * Patient is adopted Medical History Relation Name Comments ADD/ADHD Brother 1 Depression Brother 1 Schizophrenia Brother 1 ADD/ADHD Brother 2 Depression Brother 2 None Known Father None Known Maternal Grandfather Cancer - Lung Maternal Grandmother Depression Maternal Grandmother Depression Mother Diabetes - Type 2 Mother None Known Paternal Grandfather None Known Paternal Grandmother ADD/ADHD Sister 1 Depression Sister 1 Diabetes - Type 2 Sister 1 Schizophrenia Sister 1 ADD/ADHD Sister 2 Depression Sister 2 Relation Name Status Comments Brother 1 Alive Brother 2 Alive Father Alive Maternal Grandfather Alive Maternal Grandmother Mother Alive Paternal Grandfather Paternal Grandmother Sister 1 Alive Sister 2 Alive Social History Tobacco Use Types Packs/Day Years Used Date Smoking Tobacco: Never Passive Smoke Exposure: Never Smokeless Tobacco: Never Tobacco Cessation:Counseling Given: Not Answered Alcohol Use Standard Drinks/Week Comments Not Currently 0 (1 standard drink = 0.6 oz pur e alcohol) AUDIT-C Answer Date Recorded Q1: How often do you have a drink containing alcohol? Never 10/03/2024 Q2: How many drinks containi ng alcohol do you have on a typical day when you are drinking? Patient does not drink Q3: How often do you have si x or more drinks on one occasion? Never 10/03/2024 PHQ-2 Answer Date Recorded Patient Health Questionnaire-2 Score 0 12/22/2024 Comments No Sex and Gender Information Value Date Recorded Sex Assigned at Female 07/21/2021 8:22 AM NEEDLE CONTROL CHENILLER Legal Sex Female 9:24 AM CDT Gender Identity Female 07/21/2021 8:22 AM NEEDLE CONTROL CHENILLER Sexual Orientation Not on file Last Filed Vital Signs Vital Sign Reading Time Taken Comments Blood Pressure 100/70 12/22/2024 8:00 AM CDT Pulse 66 12/22/2024 8:00 AM CDT Temperature 36.5 C (97.7 F) 12/22/2024 8:00 AM CDT Respiratory Rate 16 12/22/2024 8:00 AM CDT Oxygen Saturation 100% 12/22/2024 8:00 AM CDT Inhaled Oxygen Concentration - - Weight 49.6 kg (109 lb 6.4 oz) 12/22/2024 9:00 A M CDT Height 151.8 cm (4' 11.76 ) 12/22/2024 9:00 AM C DT Body Mass Index 21.53 12/22/2024 9:00 AM CDT Plan of Treatment Upcoming Encounters Date Type Department Care Team (Latest Contact Info) Description 02/14/2025 1:33 PM CDT Hospital Encounter [facility] [address] [place] [address] Cary Brooks MD [address] [place] [address] Surgery General 02/14/2025 1:33 PM CDT - 02/14/2025 2:19 PM CDT Surgery [facility] [place] [facility] [address] [place] [address] Cary Brooks MD [address] [place] [phone] COLONOSCOPY DIAGNOSTIC WITH POSSIBLE HEMORRHOID BANDING 02/22/2025 10:00 AM CDT Video Visit [facility] [address] [place] [address] Neena Arellano, FISHERIES DIVER-TARGETING ACQUISITION OFFICER [address], [place] [phone] Scheduled Procedures Name Priority Associated Diagnoses Date/Ti me COLONOSCOPY DIAGNOSTIC Constipation, unspecified constipation type Bloating Hematochezia 02/14/2025 1:33 PM CDT Health Maintenance Due Date Last Done Comments HIV SCREENING 2010 HEPATITIS C SCREENING 07/22/2013 HEPATITIS B VACCINE (1 of 3 - 19+ 3-dose series) 2014 DTAP/TDAP/TD VACCINES (2 - T d or Tdap) 04/28/2016 04/28/2006 COVID-19 VACCINE (2023-2 5 season) 2024 INFLUENZA VACCINE (Season Ended) 2025 08/20/2021 PAP SMEAR 11/16/2027 11/15/2024 ZOSTER VACCINE (1 of 2) 2045 HPV VACCINE Completed 03/27/2010, 05/28/2009, 03/22/2009 MENINGOCOCCAL GROUPS A/C/Y/W VACCINE Aged Out 03/27/2010 No longer eligible b ased on patient's age to complete this topic DEPRESSION SCREENING Completed 09/21/2024, 12/17/2023 HIB VACCINE Aged Out No longer eligi ble based on patient's age to complete this topic MENINGOCOCCAL (Group B) VACCINE SHARED DECISION-MAKING Aged Out No longer eligible based on patient's age to complete this topic PNEUMOCOCCAL VACCINE Aged Out No long er eligible based on patient's age to complete this topic Medical Devices Implanted Type Area Director Housekeeping Device Identifier Shelf Expiration Date Model / Serial / Lot Kit Tissue Clsr Duo Tssl 1 Prefl Syr - [id number] Implanted:Qty : 1 on 12/15/2021 by Cary Brooks MD at [facility] N/A: Stomach [employer] 07/13/2023 [id number] / [id number] / [id number] Slnt Tiss Clsr Vistaseal Fbrn 10ml Frz - [id number] Implanted:Qty : 1 on 10/03/2024 by Cary Brooks MD at [facility] N/A: Abdomen [employer] 05/30/2026 VST10 / [id number] / [id number] Slnt Tiss Clsr Vistaseal Fbrn 10ml Frz - [id number] Implanted:Qty : 1 on 10/03/2024 by Cary Brooks MD at [facility] N/A: Abdomen [employer] 05/30/2026 VST10 / [id number] / Procedures Procedure Name Priority Date/Time Associated Diagnosis Comments CBC W AUTO DIFFERENTIAL Routine 12/22/2024 9:57 AM CDT Bariatric surgery status Status post gastric bypass for obesity History of morbid obesity History of iron deficiency COMPREHENSIVE METABOLIC PANEL Routine 12/22/2024 9:57 AM CDT Bariatric surgery status Status post gastric bypass for obesity History of morbid obesity FERRITIN Routine 12/22/2024 9:57 AM CDT Bariatric surgery status Status post gastric bypass for obesity History of morbid obesity History of iron deficiency LIPID PROFILE Routine 12/22/2024 9:57 AM CDT Bariatric surgery status Status post gastric bypass for obesity History of morbid obesity MAGNESIUM BLOOD Routine 12/22/2024 9:57 AM CDT Bariatric surgery status Status post gastric bypass for obesity History of morbid obesity VITAMIN D 25-HYDROXY Routine 12/22/2024 9:57 AM CDT Bariatric surgery status Status post gastric bypass for obesity History of morbid obesity Vitamin D deficiency VITAMIN B12 FOLATE PANEL Routine 12/22/2024 9:57 AM CDT Bariatric surgery status Status post gastric bypass for obesity History of morbid obesity History of iron deficiency VITAMIN B1 Routine 12/22/2024 9:57 AM CDT Bariatric surgery status Status post gastric bypass for obesity History of morbid obesity PTH INTACT+CALCIUM Routine 12/22/2024 9: 57 AM CDT Bariatric surgery status Status post gastric bypass for obesity History of morbid obesity Vitamin D deficiency PHOSPHORUS BLOOD Routine 12/22/2024 9:57 AM CDT Bariatric surgery status Status post gastric bypass for obesity History of morbid obesity IRON + TRANSFERRIN PANEL Routine 12/22/2024 9:57 AM CDT Bariatric surgery status Status post gastric bypass for obesity History of morbid obesity History of iron deficiency HEMOGLOBIN A1C Routine 12/22/2024 9:57 AM CDT Bariatric surgery status Status post gastric bypass for obesity History of morbid obesity Hypoglycemia following gastrointestinal surgery (HCC) TSH Routine 12/22/2024 9:57 AM CDT Bariatric surgery status Status post gastric bypass for obesity History of morbid obesity APHERESIS/TRANSFUSIO N ORDER 10/06/2024 2:22 PM NEEDLE CONTROL CHENILLER CARDIAC RHYTHM STRIP ORDER 10/06/2024 2:22 PM NEEDLE CONTROL CHENILLER from Last 3 Months Results * PTH INTACT+CALCIUM (12/22/2024 9:57 AM CDT) PTH Intact 41 15 - 65 pg/mL 12/24/2024 2:44 AM CDT [facility]) Calcium 9.5 8.6 - 10.0 mg/dL 12/24/2024 2:44 AM CDT [facility] ([facility]) Comment: Performed By: [place] [address] Mica Washer Gluer: Aleks Crowell MD, PhD CLIA Number: [id number] Blood BLOOD SPECIMEN / Unknown Lab Venipuncture / Unknown 12/22/2024 9:57 AM CDT 12/22/2024 10:06 AM CDT Neena Arellano APRN-TARGETING ACQUISITION OFFICER LAB - CHEMISTRY ORDERABL ES Final Result Performing Organization Address [facility] de Phone Number [facility]) [address] [place] [address] * VITAMIN B1 (12/22/2024 9:57 AM CDT) [facility] Vitamin B1 Whole Blood 161 70 - 180 nmol/L 12/26/2024 10:08 PM CDT [facility] ([facility]) Comment: INTERPRETIVE INFORMATION: Vitamin B1, Whole Blood This assay measures the concentration of thiamine diphosphate (TDP), the primary active form of vitamin B1. Approximately 90 percent of vitamin B1 present in whole blood is TDP. Thiamine and thiamine monophosphate, which comprise the remaining 10 percent, are not measured. This test was developed and its performance characteristics determined by [facility]. It has not been cleared or approved by the US Food and Drug Administration. This test was performed in a CLIA certified laboratory and is intended for clinical purposes. Performed By: [facility] [address] [place] [address] Mica Washer Gluer: Aleks Crowell MD, PhD CLIA Number: [id number] Blood BLOOD SPECIMEN / Unknown Lab Venipuncture / Unknown 12/22/2024 9:57 AM CDT 12/22/2024 10:06 AM CDT Neean Arellano APRN-TARGETING ACQUISITION OFFICER LAB - CHEMISTRY ORDERABL ES Final Result Performing Organization Address City/[facility]/ZIP Co de Phone Number [facility] ([facility]) [address] [place] [address], [facility] * HEMOGLOBIN A1C (12/22/2024 9:57 AM CDT) Hemoglobin A1c 5.2 4.2 - 5.6 % 12/22/2024 10:20 AM CDT [facility] Estimated Average Glucose 103 mg/dL 12/22/2024 10:20 AM CDT [facility] Blood BLOOD SPECIMEN WITH EDTA / Unknown Lab Venipuncture / Unknown 12/22/2024 9:57 AM CDT 12/22/2024 10:06 AM CDT Narrative [facility] - 12/22/2024 10:20 AM CDT HbA1c Interpretation: Normal: < 5.7% Pre-diabetes: 5.7-6.4% Diabetes: Equal to or greater than 6.5% Test results diagnostic of diabetes should be repeated for confirmation. Treatment target values recommended by ADA and other clinical organizations should be used to evaluate metabolic control in patients. This test should not replace glucose testing for patients with Type 1 diabetes, pediatric patients, or women. Falsely low HbA1c results may be observed in patients with clinical conditions that shorten erythrocyte life span or decrease mean erythrocyte age such as the presence of unstable hemoglobin variants, elevated hemoglobin F level or other causes of hemolytic anemia. HbA1c may not accurately reflect glycemic control when clinical conditions that affect erythrocyte survival are present. Severe Iron deficiency anemia may yield falsely high results. Hemoglobin A1c assay should not be used to diagnose or monitor diabetes in patients with malignancy, recent blood transfusion, chronic kidney or liver disease. This method may yield falsely low results when hemoglobin (HbF) exceeds 5% in the specimen. The Lopez Alinity assay for the measurement of HbA1c is a National Glycohemoglobin Standardization Program (NGSP) certified method. Neena Arellano APRN-TARGETING ACQUISITION OFFICER LAB - CHEMISTRY ORDERABL ES Final Result [facility] [address] [place], [place] [address] * (ABNORMAL) VITAMIN D 25-HYDROXY (12/22/2024 9:57 AM CDT) Pathologist [facility] Vitamin D, 25 Hydroxy 23.2(L) 30 - 80 ng/mL 12/22/2024 10:56 AM CDT [facility] Blood BLOOD SPECIMEN / Unknown Lab Venipuncture / Unknown 12/22/2024 9:57 AM CDT 12/22/2024 10:06 AM CDT Narrative [facility] - 12/22/2024 10:56 AM CDT Reference Values: The recommendation for 25-Hydroxy Vitamin D clinical decision points are as follows: Deficient < 20.0 ng/mL Insufficient 20.0-29.9 ng/mL Sufficient 30.0-100.0 ng/mL Potential Toxicity >100 ng/mL Reference: The Endocrine Society Clinical Practice Guidelines. 2011 If the 25-Hydroxy Vitamin D results are inconsistent with clinical evidence, it is recommended that follow-up testing using a method such as LC-MS/MS be performed to confirm the result. us Neena Arellano FISHERIES DIVER-TARGETING ACQUISITION OFFICER LAB - CHEMISTRY ORDERABL ES Final Result Performing Organization Address [facility] Co de Phone Number [facility] [address] * CBC WITH DIFFERENTIAL (12/22/2024 9:57 AM CDT) WBC 7.9 4.0 - 10.7 x10E9/L 12/22/2024 10:08 AM CDT [facility] RBC Count 4.33 3.90 - 5.20 x10E12/L 12/22/2024 10:08 AM CDT [facility] Hemoglobin 12.3 11.9 - 15.8 g/dL 12/22/2024 10:08 AM CDT [facility] Hematocrit 37.7 34.8 - 46.1 % 12/22/2024 10:08 AM CDT [facility] MCV 87.1 80.0 - 98.0 fL 12/22/2024 10:08 AM CDT [facility] MCH 28.4 26.7 - 33.6 pg 12/22/2024 10:08 AM CDT [facility] MCHC 32.6 31.7 - 36.3 g/dL 12/22/2024 10:08 AM CDT [facility] RDW-CV 13.2 11.3 - 14.8 % 12/22/2024 10:08 AM CDT [facility] Platelet Count 304 150 - 420 x10E9/L 12/22/2024 10:08 AM CDT [facility] MPV 10.7 7.8 - 11.4 fL 12/22/2024 10:08 AM CDT [facility] Neutrophil % 62.8 41.0 - 74.0 % 12/22/2024 10:08 AM CDT [facility] Lymphocyte % 28.7 17.0 - 47.0 % 12/22/2024 10:08 AM CDT [facility] Monocyte % 6.1 3.0 - 11.0 % 12/22/2024 10:08 AM CDT [facility] Eosinophil % 1.6 0.0 - 7.0 % 12/22/2024 10:08 AM CDT [facility] Basophil % 0.5 0.0 - 1.6 % 12/22/2024 10:08 AM T [facility] Immature Granulocytes % 0.3 0.0 - 1.0 % 12/22/2024 10:08 AM CDT [facility] Neutrophil Absolute 4.95 1.60 - 7.50 x10E9/L 12/22/2024 10:08 AM CDT [facility] Lymphocyte Absolute 2.26 1.00 - 4.40 x10E9/L 12/22/2024 10:08 AM CDT [facility] Monocyte Absolute 0.48 0.15 - 1.00 x10E9/L 12/22/2024 10:08 AM CDT [facility] Eosinophil Absolute 0.13 0.00 - 0.60 x10E9/L 12/22/2024 10:08 AM T [facility] Basophil Absolute 0.04 0.00 - 0.13 x10E9/L 12/22/2024 10:08 AM T [facility] Blood BLOOD SPECIMEN / Unknown Lab Venipuncture / Unknown 12/22/2024 9:57 AM CDT 12/22/2024 10:06 AM CDT us Neena Arellano FISHERIES DIVER-TARGETING ACQUISITION OFFICER LAB - HEMATOLOGY ORDERAB LES Final Result [facility] [address] [place] [address], [facility] * COMPREHENSIVE METABOLIC PANEL (12/22/2024 9:57 AM CDT) [facility] Glucose 89 70 - 125 mg/dL 12/22/2024 10:34 AM [facility] Sodium 139 136 - 145 mmol/L 12/22/2024 10:34 AM [facility] Potassium 4.2 3.4 - 5.1 mmol/L 12/22/2024 10:34 AM [facility] Chloride 107 98 - 107 mmol/L 12/22/2024 10:34 AM [facility] CO2 25 22 - 29 mmol/L 12/22/2024 10:34 AM [facility] Calcium 9.19 8.4 - 10.2 mg/dL 12/22/2024 10:34 AM [facility] Anion Gap 7 6 - 16 mmol/L 12/22/2024 10:34 AM [facility] BUN 18.2 9.8 - 20.1 mg/dL 12/22/2024 10:34 AM [facility] Creatinine 0.59 0.57 - 1.11 mg/dL 12/22/2024 10:34 AM [facility] Alkaline Phosphatase 71 40 - 150 U/L 12/22/2024 10:34 AM [facility] ALT 35 <=55 U/L 12/22/2024 10:34 AM [facility] AST 32 5 - 34 U/L 12/22/2024 10:34 AM [facility] Protein Total 7.5 6.4 - 8.3 gm/dL 12/22/2024 10:34 AM [facility] Albumin 3.8 3.4 - 4.8 gm/dL 12/22/2024 10:34 AM [facility] Globulin Total 3.7 2.6 - 4.0 gm/dL 12/22/2024 10:34 AM [facility] Albumin/Globulin Ratio 1.0 0.9 - 1.6 12/22/2024 10:34 AM [facility] Bilirubin Total 1.1 0.2 - 1.2 mg/dL 12/22/2024 10:34 AM [facility] eGFR >90 >90 mL/min/1.7 3m2 12/22/2024 10:34 AM [facility] Comment:The GFR result was c alculated using the updated CKD-EPI Creatinine Equation (2021). Blood BLOOD SPECIMEN / Unknown Lab Venipuncture / Unknown 12/22/2024 9:57 AM CDT 12/22/2024 10:06 AM CDT Neena Arellano [facility] LAB - CHEMISTRY ORDERABL ES Final Result Performing Organization Address [facility] Co de Phone Number [facility] [address] [place] [address] * PHOSPHORUS BLOOD (12/22/2024 9:57 AM CDT) Phosphorus 4.2 2.5 - 4.5 mg/dL 12/22/2024 10:34 AM CDT [facility] Blood BLOOD SPECIMEN / Unknown Lab Venipuncture / Unknown 12/22/2024 9:57 AM CDT 12/22/2024 10:06 AM CDT Neena Arell[facility] - CHEMISTRY ORDERABL ES Final Result Performing Organization Address [facility] Co de Phone Number [facility] [address] [place] [address] * MAGNESIUM BLOOD (12/22/2024 9:57 AM CDT) Magnesium 1.9 1.6 - 2.6 mg/dL 12/22/2024 10:34 AM CDT [facility] Blood BLOOD SPECIMEN / Unknown Lab Venipuncture / Unknown 12/22/2024 9:57 AM CDT 12/22/2024 10:06 AM CDT Neena Arellano [facility] - CHEMISTRY ORDERABL ES Final Result Performing Organization Address [facility] Co de Phone Number [facility] [address] [place] [address] * VITAMIN B12 FOLATE PANEL (12/22/2024 9:57 AM CDT) Vitamin B12 535 213 - 816 pg/mL 12/22/2024 11:08 AM CDT [facility] Folate 11.7 7.0 - 31.4 ng/mL 12/22/2024 11:08 AM CDT [facility] Blood BLOOD SPECIMEN / Unknown Lab Venipuncture / Unknown 12/22/2024 9:57 AM CDT 12/22/2024 10:06 AM CDT Neena Arellano [employer] LAB - CHEMISTRY ORDERABL ES Final Result Performing Organization Address [facility] Co de Phone Number [facility] [address] [place] [address] * TSH (12/22/2024 9:57 AM CDT) TSH 0.5085 0.35 - 4.94 uIU/mL 12/22/2024 11:08 AM CDT [facility] Blood BLOOD SPECIMEN / Unknown Lab Venipuncture / Unknown 12/22/2024 9:57 AM CDT 12/22/2024 10:06 AM CDT Neena Arellano [employer] LAB - CHEMISTRY ORDERABL ES Final Result Performing Organization Address [facility] Phone Number [facility] [address] [place] [address] * IRON + TRANSFERRIN PANEL (12/22/2024 9:57 AM CDT) Iron 54 50 - 170 ug/dL 12/22/2024 10:34 AM CDT [facility] Transferrin 332 180 - 382 mg/dL 12/22/2024 10:34 AM CDT [facility] TIBC Calculated 415 261 - 497 ug/dL 12/22/2024 10:34 AM CDT [facility] Iron Saturation % 13 11 - 45 % 12/22/2024 10:34 AM CDT [facility] Blood BLOOD SPECIMEN / Unknown Lab Venipuncture / Unknown 12/22/2024 9:57 AM CDT 12/22/2024 10:06 AM CDT Neena Arellano [employer] - CHEMISTRY ORDERABL ES Final Result Performing Organization Address [facility] Co de Phone Number [facility] [address] * FERRITIN (12/22/2024 9:57 AM CDT) [facility] Ferritin 8 5 - 204 ng/mL 12/22/2024 10:54 AM CDT [facility] Blood BLOOD SPECIMEN / Unknown Lab Venipuncture / Unknown 12/22/2024 9:57 AM CDT 12/22/2024 10:06 AM CDT Neena Arellano [employer] LAB - CHEMISTRY ORDERABL ES Final Result [facility] [address] * (ABNORMAL) LIPID PROFILE (12/22/2024 9:57 AM CDT) [facility] Cholesterol 141 <200 mg/dL 12/22/2024 10:34 AM CDT [facility] Triglycerides 77 <150 mg/dL 12/22/2024 10:34 AM CDT [facility] HDL Cholesterol 74 >40 mg/dL 5 10:34 AM CDT [facility] Chol HDL Ratio 1.9 1.0 - 6.0 12/22/2024 10:34 AM CDT [facility] LDL Calculated 52(L) 65 - 130 mg/dL 12/22/2024 10:34 AM CDT [facility] VLDL Calculated 15 <=30 mg/dL 5 10:34 AM CDT [facility] Blood BLOOD SPECIMEN / Unknown Lab Venipuncture / Unknown 12/22/2024 9:57 AM CDT 12/22/2024 10:06 AM CDT Narrative [facility] - 12/22/2024 10:34 AM CDT Lipid Profile Comment: CHOLESTEROL LEVEL..................CLINICAL INTERPRETATION LESS THAN 200 MG/DL..............................DESIRABLE 200-239 MG/DL..............................BORDERLINE HIGH GREATER THAN 240 MG/DL................................HIGH LDL-CHOLESTEROL LEVEL..............CLINICAL INTERPRETATION LESS THAN 100 MG/DL................................OPTIMAL 100-129 MG/DL.................................NEAR OPTIMAL GREATER THAN 160 MG/DL...........................HIGH RISK HDL RISK LEVEL GREATER THEN 60 MG/DL............................DECREASED 40-60 MG/DL........................................AVERAGE LESS THAN 40 MG/DL...............................INCREASED TRIGLYCERIDE LEVEL..................CLINICAL INTERPRETATION LESS THAN 150 MG/DL...............................DESIRABLE 150-199 MG/DL...............................BORDERLINE HIGH 200-499 MG/DL..........................................HIGH GREATER THAN 500..................................VERY HIGH THE NATIONAL CHOLESTEROL EDUCATION PROGRAM HAS SET THE ABOVE GUIDELINES (REFERANCE VALUES) FOR CHOLESTEROL AND HDL. RISK ASSOCIATED WITH CHOLESTEROL/HDL RATIOS RISK....................MALE RATIO.............FEMALE RATIO 1/2 AVERAGE.................<3.4.......................<3.3 LOW RISK.................... 4.0 ...................... 3.8 AVERAGE..................... 5.0 ...................... 4.5 2X AVERAGE.................. 9.5 ...................... 7.0 3X AVERAGE...................>23........................>11 us Neena Arellano [employer] LAB - CHEMISTRY ORDERABL ES Final Result Performing Organization Address City/State/[facility] Co de Phone Number [facility] [address] * APHERESIS/TRANSFUSION ORDER (10/06/2024 2:22 PM NEEDLE CONTROL CHENILLER) Narrative 10/06/2024 2:22 PM NEEDLE CONTROL CHENILLER Ordered by an unspecified provider. us Scanned Document NURSING - VITAL SIGNS AND ASSES SMENT Final Result * CARDIAC RHYTHM STRIP ORDER (10/06/2024 2:22 PM NEEDLE CONTROL CHENILLER) Narrative 10/06/2024 2:22 PM NEEDLE CONTROL CHENILLER Ordered by an unspecified provider. 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
--- OUTSIDE RECORDS SUMMARY | 2025-01-04 07:49 | XMS_ITS | Data Portability ---
Author Organization [facility] [place] Address [address] [place] [address] [place] [address] Assessment Encounter Date Assessment Date Assessment LastModified by Organization Details LastModified Time 07/01/2023 07/01/2023 physical therapy, gabapentin, vaginal Valium, pelvic ultrasound, diagnostic laparoscopy [email or web address] Not available 07/01/2023 15:34:52 Plan of Treatment Reminders Order Date Submit Date Provider Last Modified By Organization Details Last Modified Time Details Appointments None recorded. Lab urinalysis, dipstick 2024 025 [email or web address] [place], [address], [place], [address], 18:47:02 Referral None recorded. Procedures None recorded. Surgeries None recorded. Imaging US, transvagina l 2022 023 [email or web address] [place], [address], [place], [address], 3 19:22:40 Medication Orders Veozah 45 mg tablet 2024 025 [facility] #[id number], [address] [place], [place], [id number], 5 18:05:53 Valtrex 1 gram tablet 2024 025 [facility] #71503, [address], [place], [id number], 5 16:22:11 Valtrex 500 mg tablet 2024 025 [facility] #[id number], [address] [facility], [place], [place], [id number], 5 16:23:07 Valium 10 mg tablet [email or web address] [facility]79337, [address] [place], [place], [id number], 5 16:00:18 gabapentin 300 mg capsule [address] [facility] #[id number], [address] [facility], [place], [place], [id number], 5 16:00:37 Patient TargetsNo targets recorded. Patient InstructionsNo instructions recorded. Reason for Referral None Reported. Results Created Date Observation Date Name Description Value Unit Range Abnormal Flag Note LastModifiedBy Organization Detail LastModifiedTime 08/09/2008/09/2023 urina lysis , dipst ick Nitrite negati ve Not Available [place] [address], [place], [address], 08/09/2023 15:06:45 11/16/19 25 11/15/2024 CULTU RE: URINE result report SEE RESULT S BELOW Test: Cultu re: Urine Speci men Sourc e: Urine - Clean Catch Speci men Type: Urine Speci men Date: 1727 Resul t Date: 0606 Resul t Statu s: Final resul t Abnor mal: No Resul ting Lab: [facility] [address] [facility] [address] Tel: CULTU RE ----- ----- ----- --- No growt h in 1 day (dete ction level of 10,00 0 colon ies / ml.) Not Available [facility] (Lab) [address] [facility], [place], [address], 11/20/2024 09:35:43 11/16/19 25 11/15/2024 IMAGE GUIDE D PAP AND HPV REGAR DLESS image guided Pap, HPV regardless of Pap result SEE RESULT S BELOW CASE REPOR T: Cytol ogy Gynec ologi loan Repor t Case: [id number] Autho gayla hemphill Provi michelle: Mode Garcia MD Colle cted: 11/15 1727 Order ing Locat ion: [place] [facility] Recei tray: 11/16 0151 First Scree n: Rowdy epps, Maddi ed, CT Rescr een: Hoda Whitley, CT Speci men: Briannajet aceves Pap - Image d, Cervi x STATE MENT OF ADEQU ACY: Satis facto ry for evalu ation Trans forma tion zone compo nent absen t The absen ce of an endoc ervic al compo nent was confi rmed by an addit ional scree ner. ----- ----- ----- ----- ----- ----- ----- ----- ----- ----- ----- ----- ----- ----- ----- ----- ----- ---- FINAL DIAGN OSIS: Negat hazel for Intra epith elial Lesio n or Na salgado (NIL) . Elect raine peterson by Hoda Whitley , CT on 2024 at 0832 CDT ----- ----- ----- ----- ----- ----- ----- ----- ----- ----- ----- ----- ----- ----- ----- ----- ----- ---- HPV RESUL TS: HPV mRNA E6/E7 : No HPV mRNA Detec ofe NOTE: This high risk HPV mRNA assay detec ts fourt een high- risk HPV types (16, 18, 31, 33, 35, 39, 45, 51, 52, 56, 58, 59, 66, 68) witho ut diffe renti ation . COMME NT: This speci men was revie wed by a Cytot echno logis t and/o r Patho logis t (as indic ated in this repor t) after evalu ation using the Thinp rep Imagi ng Syste m. CLINI LOAN INFOR MATIO N: Menst rual Statu s: LMP (if appli cable ): Clini loan Histo ry/Pr eviou s Pap: Type of Neopl nitesh (if appli cable ): Signi fican t Clini loan Findi ngs: Other Histo ry: Hormo sharona (if appli cable ): PAP EDUCA ELVA L NOTE: The Pap Test is a scree ketan test with an inher ent false negat hazel rate. Liqui d-bas ed sampl ing may decre ase, but will not elimi najma, false negat hazel resul ts. A negat hazel resul t does not precl ude the prese nce and/o r devel opmen t of disea se, since the prese nce of abnor mal cells in the sampl e depen ds on the locat ion of the lesio n and sampl ing techn ique. Ye nued regul ar scree ketan is the best metho d of cance r preve ntion . If repor ofe cytol ogic findi ng do not corre late with physi loan and/o r histo rical findi ngs, furth er inves tigat ion is recom geo d, as clini michael montero nted. Not Available [facility] (Lab) [address], [place], [address], 11/20/2024 09:35:44 11/16/1911/15/2024 urina lysis , dipst ick Leukocytes + Not Available Silvana cramer [address], [place], [address], 11/15/2024 18:45:12 11/16/1911/15/2024 urina lysis , dipst ick Nitrite - Not Available [place] [address], [place], [address], 11/15/2024 18:45:12 11/16/19 25 11/15/2024 urina lysis , dipst ick Urobilinogen - Not Available [facility] macrina [address], [place], [address], 11/15/2024 18:45:12 11/16/19 25 11/15/2024 urina lysis , dipst ick Protein - Not Available [place] [address], [place], [address], 11/15/2024 18:45:12 11/16/19 25 11/15/2024 urina lysis , dipst ick pH 6 Not Available [place] [address], [place], [address], 11/15/2024 18:45:12 11/16/19 25 11/15/2024 urina lysis , dipst ick Specific [place] 1.015 Not Available [facility] alma [address], [place], [address], 11/15/2024 18:45:12 11/16/19 25 11/15/2024 urina lysis , dipst ick Ketone - Not Available [place] [address], [place], [address], 11/15/2024 18:45:12 11/16/19 25 11/15/2024 urina lysis , dipst ick Bilirubin - Not Available [facility] [address], [place], [address], 11/15/2024 18:45:12 11/16/19 25 11/15/2024 urina lysis , dipst ick Glucose - Not Available [place] [address], [place], [address], 11/15/2024 18:45:12 11/16/1911/15/2024 urina lysis , dipst ick Appearance clear Not Available [facility] [address], [place], [address], 11/15/2024 18:45:12 11/16/1911/15/2024 urina lysis , dipst ick Color yellow Not Available [place] [address], [place], [address], 11/15/2024 18:45:12 07/06/2007/06/2023 US, trans vagin al No observ ation record ed. [email or web address] [place] [address], [place], [address], 07/06/2023 16:17:14 07/06/20 23 07/06/2023 US, trans vagin al No observ ation record ed. [email or web address] [place] [address], [place], [address], 07/06/2023 19:13:42 07/08/20 US, trans vagin al No observ ation record ed. [email or web address] [place] [address], [place], [address], 07/08/2023 15:56:43 Result Notes None recorded. Problems Name Problem SNOMED Code Status Onset Date Resolution Date Notes Provider Name and Address Organization Details Recorded Time Adult health examinat ion Completed 201401/22/2021 ROUTINE MEDICAL EXAM;Rec orded Elsewher e: No Locat ion: [facility] S ource: [employer] Supervisor glenn: N Practi ce ID: 0001 Dilshad lable Time: 09:00:00 AM [place] varela [place] [facility] 14:11:[address] Concept Completed 201801/22/2021 Decrease d movement s, third trimeste r, unsp;Rec orded Elsewher e: No Locat ion: [facility] chaudhary [facility] S ource: [employer] Supervisor glenn: N Practi ce ID: 0001 Dilshad lable Time: 08:30:00 AM [place] varela [facility] 14:13:[address] Concept Completed 201601/22/2021 Nexplano n;Record ed Elsewher e: No Locat ion: Sandra jet [facility] S ource: [employer] Supervisor glenn: N Practi ce ID: 0001 Dilshad lable Time: 02:30:00 PM [place] [facility] 14:13:51 Rubella screenin g status [id number] Completed 201701/22/2021 Encounte r for antenata l screenin g, unspecif ied;Kemar rded Elsewher e: No Locat ion: [facility] S ource: [employer] Supervisor glenn: N Practi ce ID: 0001 Dilshad lable Time: 01:00:00 PM [place] varela [facility] 14:13:34 Gestatio n period, 25 weeks [id number] Completed 201701/22/2021 25 weeks gestatio n of pregnanc y;Record ed Elsewher e: No Locat ion: [facility]aud[facility] S ource: [employer] Supervisor glenn: N Practi ce ID: 0001 Dilshad lable Time: 01:00:00 PM [place] varela [facility] 14:12:13 Educatio n Completed 201701/22/2021 Encounte r for other general counseli ng and advice on contrace ption;Re corded Elsewher e: No Locat ion: [facility] S ource: [employer] Supervisor glenn: N Practi ce ID: 0001 Dilshad lable Time: 09:00:00 AM [place] [facility] 14:12:00 Gestatio n period, 34 weeks [id number] Completed 201701/22/2021 34 weeks gestatio n of pregnanc y;Record ed Elsewher e: No Locat ion: [facility] S ource: [employer] Supervisor glenn: N Practi ce ID: 0001 Dilshad lable Time: 02:00:00 PM [place] varela [facility] 14:12:25 Clinical finding Completed 201601/22/2021 Presence of (intraut erine) contrace ptive device;R ecorded Elsewher e: No Locat ion: [facility] S ource: [employer] Supervisor glenn: N Practi ce ID: 0001 Dilshad lable Time: 09:15:00 AM [place] varela [facility] 14:11:47 Disease of skin and subcutan eous tissue complica ting pregnanc y, childbir th and/or puerperi [id number] Completed 201801/22/2021 Diseases of the skin, subcu comp pregnanc y, third trimeste r;Practi ce ID: 0001 [place] varela [facility] 14:11:57 Oligohyd ramnios Completed 201701/22/2021 Oligohyd ramnios, third trimeste r, not applicab le or unsp;Rec orded Elsewher e: No Locat ion: [facility] S ource: [employer] Supervisor glenn: N Practi ce ID: 0001 Dilshad lable Time: 02:30:00 PM [place] varela [facility] 14:12:09 Gestatio n period, 39 weeks [id number] Completed 201801/22/2021 39 weeks gestatio n of pregnanc y;Practi ce ID: 0001 [place] varela [facility] 14:12:31 Pregnanc y test negative [id number] Completed 201401/22/2021 Encounte r for pregnanc y test, result negative ;Practic e ID: 0001 [place] varela [facility] 14:13:21 Finding of pattern of menstrua l cycle [id number] Completed 201501/22/2021 Excessiv e and frequent menstrua tion with irregula r cycle;Pr actice ID: 0001 [place] varela [facility] 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 14:13:49 Postcoit al finding [id number] Completed 201601/22/2021 Postcoit al and contact bleeding ;Practic e ID: 0001 [place] varela [facility] 14:13:10 Acute vaginiti s [id number] Completed 201601/22/2021 Acute vaginiti s;Practi ce ID: 0001 [place] [facility] 14:11:36 Contrace ptive sheath status [id number] Completed 201601/22/2021 Encounte r for initial prescrip tion of other contrace ptives;P ractice ID: 0001 [place] [facility] 14:11:49 Blood leukocyt e number above referenc e range [id number] Completed 201701/22/2021 Elevated white blood cell count, unspecif ied;Kemar rded Elsewher e: No Locat ion: [facility] S ource: [employer] Supervisor glenn: N Practi ce ID: 0001 Dilshad lable Time: 04:30:00 PM [place] Tru[facility] 14:12:36 Gestatio n period, 29 weeks [id number] Completed 201701/22/2021 29 weeks gestatio n of pregnanc y;Record ed Elsewher e: No Locat ion: [facility] S ource: [employer] Supervisor glenn: N Johnti ce ID: 0001 Dilshad lable Time: 02:00:00 PM [place] varela [facility] 14:12:17 Depressi on screenin g Completed 201101/22/2021 Screenin g for depressi on;Recor ded Elsewher e: No Locat ion: [facility] S ource: [employer] Supervisor glenn: N Johnti ce ID: 0001 Dilshad lable Time: 09:30:00 AM [place] [facility] 14:11:52 Gestatio n period, 30 weeks [id number] Completed 201701/22/2021 30 weeks gestatio n of pregnanc y;Record ed Elsewher e: No Locat ion: [facility] S ource: [employer] Supervisor glenn: N Johnti ce ID: 0001 Dilshad lable Time: 03:00:00 PM [place] varela [facility] 14:12:19 Depressi ve disorder [id number] Completed 201101/22/2021 Depressi on;Recor ded Elsewher e: No Locat ion: [facility] S ource: [employer] Supervisor glenn: N Practi ce ID: 0001 Dilshad lable Time: 09:45:00 AM [place] [facility] 14:11:54 Vaginola bial hernia Completed 201701/22/2021 Other specifie d noninfla mmatory disorder s of vagina;R ecorded Elsewher e: No Locat ion: [facility] S ource: [employer] Supervisor glenn: N Practi ce ID: 0001 Dilshad lable Time: 04:30:00 PM [place] varela [facility] 14:14:19 Single live [id number] Completed 201801/22/2021 Single live ;Re corded Elsewher e: No Locat ion: [facility] S ource: [employer] Supervisor glenn: N Maday ce ID: 0001 Dilshad lable Time: 08:30:00 AM [place] varela [facility] 14:13:40 Gestatio n period, 28 weeks [id number] Completed 201701/22/2021 28 weeks gestatio n of pregnanc y;Record ed Elsewher e: No Locat ion: [facility] S ource: [employer] Supervisor glenn: N Maday ce ID: 0001 Dilshad lable Time: 09:45:00 AM [place] varela [facility] 14:12:14 Normal pregnanc y in multigra sarah [id number] Completed 201801/22/2021 Encounte r for suprvsn of normal pregnanc y, third trimeste r;Record ed Elsewher e: No Locat ion: [facility] S ource: [employer] Supervisor glenn: N Maday ce ID: 0001 Dilshad lable Time: 10:30:00 AM [place] varela [facility] 14:13:02 Uterine size for dates discrepa ncy Completed 201701/22/2021 Uterine size-toan e discrepa ncy, third trimeste r;Record ed Elsewher e: No Locat ion: [facility] S ource: [employer] Supervisor glenn: N Maday ce ID: 0001 Dilshad lable Time: 09:45:00 AM [place] varela [facility] 14:14:12 Pregnanc y detectio n examinat ion Completed 201701/22/2021 Encounte r for pregnanc y test, result positive ;Recorde d Elsewher e: No Locat ion: [facility] S ource: [employer] Supervisor glenn: N Practi ce ID: 0001 Dilshad lable Time: 04:00:00 PM [place] varela [facility] 14:13:19 Gestatio n period, 8 weeks [id number] Completed 201701/22/2021 8 weeks gestatio n of pregnanc y;Practi ce ID: 0001 [place] varela [facility] 14:12:33 Increase d frequenc y of urinatio n [id number] Completed 201701/22/2021 Frequenc y of micturit ion;Prac juan manuel ID: 0001 [place] varela [facility] 14:12:39 Antenata l screenin g Completed 201701/22/2021 Encounte r for antenata l screenin g for nuchal transluc ency;Pra ctice ID: 0001 [place] varela [facility] 14:11:42 Itching [id number] Completed 201701/22/2021 Pruritus , unspecif ied;Prac juan manuel ID: 0001 [place] varela [facility] 14:12:48 Gestatio n period, 19 weeks [id number] Completed 201701/22/2021 19 weeks gestatio n of pregnanc y;Practi ce ID: 0001 [place] varela [facility] 14:12:11 Antenata l screenin g for malforma tion Completed 201701/22/2021 Encounte r for antenata l screenin g for malforma tions;Pr actice ID: 0001 [place] varela [facility] 14:11:45 Abnormal uterine bleeding [id number] 100 Completed 201601/22/2021 Other specifie d abnormal uterine and vaginal bleeding ;Practic e ID: 0001 [place] varela [facility] 14:11:05 Insertio n of intraute rine contrace ptive device Completed 201601/22/2021 Encounte r for insertio n of intraute rine contrace ptive device;P ractice ID: 0001 [place] [facility] 14:12:41 Pelvic and perineal pain [id number] Completed 201601/22/2021 Pelvic and perineal pain;Pra ctice ID: 0001 [place] Trujillo [facility] 14:13:07 Removal of intraute rine device Completed 201601/22/2021 Encounte r for removal of intraute rine contrace ptive device;P ractice ID: 0001 [place] Tru[place]illo [facility] 14:13:32 Nausea and vomiting [id number] Completed 201701/22/2021 Nausea with vomiting , unspecif ied;Prac juan manuel ID: 0001 [place] Tru[place] [facility] 14:13:00 Secondar y amenorrh ea [id number] Completed 201701/22/2021 Secondar y amenorrh ea;Pract ice ID: 0001 [place] Trujillo [facility] 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 14:13:53 Subcutan eous contrace ptive implant present [id number] Completed 201101/22/2021 Surveill ance of implanta ble subderma l contrace ptive;Re corded Elsewher e: No [facility] ource: [employer] Supervisor glenn: N Johnti ce ID: 0001 Dilshad lable Time: 09:15:00 AM [place] [facility] 14:14:05 Gestatio n period, 31 weeks [id number] Completed 201701/22/2021 31 weeks gestatio n of pregnanc y;Record ed Elsewher e: No Locat ion: [facility] S ource: [employer] Supervisor glenn: N Johnti ce ID: 0001 Dilshad lable Time: 02:00:00 PM [place] [facility] 14:12:20 Amenorrh ea [id number] Completed 201701/22/2021 Amenorrh ea;Recor ded Elsewher e: No Locat ion: [facility] S ource: [employer] Supervisor glenn: N Johnti ce ID: 0001 Dilshad lable Time: 08:30:00 AM [place] [facility] 14:11:[address] Concept Completed 201601/22/2021 Encntr for general adult medical exam w/o abnormal findings ;Recorde d Elsewher e: No Locat ion: [facility] S ource: [employer] Supervisor glenn: N Johnti ce ID: 0001 Dilshad lable Time: 10:30:00 AM [place] [facility] 14:13:47 Venereal disease screenin g Completed 201401/22/2021 Screenin g examinat ion for venereal disease; Recorded Elsewher e: No Locat ion: [facility] S ource: [employer] Supervisor glenn: N Johnti ce ID: 0001 Dilshad lable Time: 09:00:00 AM [place] varela [facility] 14:14:22 Primigra sarah [id number] Completed 201101/22/2021 Supervis ion of normal first pregnanc y;Practi ce ID: 0001 [place] varela [facility] 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 14:12:51 Postpart um care Completed 201101/22/2021 Routine postpart um follow-u p;Practi ce ID: 0001 [place] varela [facility] 14:13:17 Postoper ative follow-u p visit Completed 201101/22/2021 Follow-u p examinat ion, followin g other surgery; Practice ID: 0001 [place] varela [facility] 14:13:14 Insertio n of subcutan eous contrace ptive Completed 201101/22/2021 Insertio n of implanta ble subderma l contrace ptive;Pr actice ID: 0001 [place] varela [facility] 14:12:44 Speciali zed medical examinat ion Completed 201401/22/2021 Other specifie d chlamydi al diseases ;Practic e ID: 0001 [place] varela [facility] 14:13:55 Screenin g for malignan t neoplasm of cervix Completed 201101/22/2021 Screenin g for malignan t neoplasm s of the cervix;R ecorded Elsewher e: No Locat ion: [facility] S ource: [employer] Supervisor glenn: N Johnti ce ID: 0001 Dilshad lable Time: 11:00:00 AM [place] varela [facility] 14:13:36 Gestatio n period, 37 weeks [id number] Completed 201701/22/2021 37 weeks gestatio n of pregnanc y;Record ed Elsewher e: No Locat ion: [facility] S ource: [employer] Supervisor glenn: N Johnti ce ID: 0001 Dilshad lable Time: 10:00:00 AM [place] varela [facility] 14:12:29 Procedur e on genitour inary system Completed 201801/22/2021 Encounte r for surgical aftercar e followin g surgery on the genitour inary system;R ecorded Elsewher e: No Locat ion: [facility] S ource: [employer] Supervisor glenn: N Johnti ce ID: 0001 Dilshad lable Time: 10:00:00 AM [place] varela [facility] 14:13:29 Postoper ative care Completed 201801/22/2021 Encounte r for surgical aftercar e followin g surgery on the genitour inary system;R ecorded Elsewher e: No [facility] S ource: [employer] Supervisor glenn: N Johnti ce ID: 0001 Dilshad lable Time: 10:00:00 AM [place] varela [facility] 14:13:12 Gestatio n period, 35 weeks [id number] Completed 201701/22/2021 35 weeks gestatio n of pregnanc y;Record ed Elsewher e: No [facility]at ion: [facility] S ource: [employer] Supervisor glenn: N Johnti ce ID: 0001 Dilshad lable Time: 09:00:00 AM [place] [facility] 14:12:27 Uterine size for dates discrepa ncy [id number] Completed 201101/22/2021 UTERINE SIZE SHARAD-ANTE PAR;Prac juan manuel ID: 0001 [place] [facility]:14:15 Finding of length of gestatio n [id number] Completed 201101/22/2021 Unspecif ied weeks of gestatio n;Practi ce ID: 0001 [place] [facility] 14:12:04 Pregnanc y test positive [id number] Completed 201101/22/2021 Positive Pregnanc y Test;Pra ctice ID: 0001 [place] [facility] 14:13:25 Uncertai n viabilit y of pregnanc y [id number] Completed 201101/22/2021 PREG W INCONCLU SIVE VIABIL;P ractice ID: 0001 [place] [facility] 14:14:07 Vaginiti s and vulvovag initis Completed 201101/22/2021 Vaginiti s and vulvovag initis, unspecif ied;Prac juan manuel ID: 0001 [place] [facility] 14:14:24 anatomy study Completed 201101/22/2021 [facility] SURVEY;P ractice ID: 0001 [place] [facility] 14:12:02 Maternal care for diminish ed movement s Completed 201101/22/2021 Decrease d movement s, affectin g manageme nt of mother, antepart um conditio n or complica tion;Pra ctice ID: 0001 [place] [facility] 14:12:58 Pain Completed 201601/22/2021 Other specifie d dyspareu rubén;Kemar rded Elsewher e: No Locat ion: Yoshi chaudhary [facility] S ource: [employer] Supervisor glenn: N Practi ce ID: 0001 Dilshad lable Time: 10:30:00 AM [place] varela [facility] 14:13:05 Uterine scar from previous surgery affectin g pregnanc y [id number] Completed 201801/22/2021 Matern care for low transver se scar from prev del;Prac juan manuel ID: 0001 [place] Trujillo [facility] 14:14:10 Steriliz ation procedur e Completed 201801/22/2021 Encounte r for steriliz ation;Pr actice ID: 0001 [place] Trujillo [facility] 14:14:[address] Concept Completed 201701/22/2021 Matern care for abnlt fetl hrt rate or rhym, 3rd tri, unsp;Rec orded Elsewher e: No Locat ion: Marthamakenzie jet [facility] S ource: [employer] Shop Supervisor glenn: N Practi ce ID: 0001 Dilshad lable Time: 04:00:00 PM Virginai varela [facility] 14:13:45 Spotting per vagina in pregnanc y [id number] Completed 201701/22/2021 Spotting complica ting pregnanc y, second trimeste r;Record ed Elsewher e: No Locat ion: Marthamakenzie jte [facility] S ource: [employer] Shop Supervisor glenn: N Practi ce ID: 0001 Dilshad lable Time: 01:00:00 PM [place] varela [facility] 14:13:59 Leukorrh ea [id number] Completed 201401/22/2021 Leukorrh ea, not specifie d as infectiv e;Record ed Elsewher e: No [facility] S ource: E[employer] Shop Supervisor glenn: N Maday ce ID: 0001 Dilshad lable Time: 09:00:00 AM [place] varela, [facility] 14:12:54 Lochia finding Completed 201801/22/2021 Encounte r for routine postpart um follow-u p;Maday ce ID: 0001 [place] varela, [facility] 14:12:56 Problem Notes None recorded. Procedures Surgical History Date Name Laterality Status Provider Name and Address Organization Details Recorded Time 10/03/19 25 Abdominoplasty completed Mercedes Waite [facility] 11/01/2024 16:03:27 10/03/19 25 panniculectomy completed ELO Sagastume [address], [place], [address], [facility] 11/01/2024 16:08:45 10/03/19 25 abdominoplasty completed ZORAN Crawley [facility] 11/15/2024 17:48:58 02/04/20 23 ROBOTIC ASSISTED HYSTERECTOMY W/BILATERAL SALPINGO-OOPHOREC MAHENDRA (SURG) completed Naila Sandoval [facility] 02/04/2023 10:17:52 10/16/19 23 Date of Last Pap Smear completed Mercedes Waite [facility] 11/01/2024 16:02:42 12/19/19 22 Bariatric Surgery completed ZORAN Crawley [facility] 11/15/2024 17:45:24 10/22/19 22 Control Implant Removal completed Quincy Garcia MD [address], [place], [address], [facility] 10/22/2021 15:24:50 06/25/20 20 Control Implant Insertion completed Quincy Garcia MD [address], [place], [address], [place] [facility] 06/25/2020 12:09:10 09/13/19 19 section completed Maria G Liu [facility] 05/30/2020 17:05:39 09/13/19 19 [facility] 17:05:54 05/14/20 12 section completed Maria Gfatoumata Liu [facility] 05/30/2020 17:05:25 09/13/19 01 procedure on ear [facility] 05/30/2020 17:06:22 Gastric Bypass completed Virginia Trujillo [facility] 10/16/2022 11:46:52 Tubal Ligation completed ZORAN Crawley [facility] 11/15/2024 17:45:24 Partial Hysterectomy completed ZORAN Crawley [facility] 11/15/2024 17:45:24 Imaging Results Imaging Date Name Status LastModified by Organization Details LastModified Time 07/06/2023 US, transvaginal completed [email or web address] Yoshi chaudhary [address], [place], [address], 07/06/2023 16:17:14 07/06/2023 US, transvaginal completed [email or web address] [place] [address], [facility], [place], [address], 07/06/2023 19:13:42 07/08/2023 US, transvaginal active [email or web address] Yoshi chaudhary [address], [place], [address], 07/08/2023 15:56:43 Procedure Notes None recorded. Medical Equipment None Reported. Allergies Allergen ID Allergen Name Allergen Category Reaction Reaction Severity Criticality Documentation Date Start Date Code Code System Note Provider Name and Address Organization Details Recorded Time phentermi ne medicatio n Not available Not available Not available 12/22/2022 8152 RxNorm Bianka Z[place], [place] - [facility] 3 09:38:40 Medications Name Sig Start Date Stop Date Status Note LastModified by Organization Details LastModified Time cyclobenz aprine 10 mg tablet 04/04 completed Not Available Not Available Not Available amoxicill in 500 mg capsule take 1 capsule by oral route every 8 hours 04/04 completed Not Available Not Available Not Available Mirena 21 mcg/24 hr (up to 8 years) 52 mg intrauter ine device 07/16 completed Prescrib ed Elsewher e: Yes Loca tion: [facility] M odify By: [email or web address] Chaudhary ncounter DateTime : 07/15/20 17 08:30:00 AM Not Available Not Available Not Available buspirone 5 mg tablet 11/01 completed Not Available Not Available Not Available prednison e 10 mg tablet 10/16 completed Not Available Not Available Not Available trazodone 50 mg tablet 10/16 completed Not Available Not Available Not Available azithromy hilton 250 mg tablet 10/16 completed Not Available Not Available Not Available ibuprofen 800 mg tablet 10/16 completed Not Available Not Available Not Available tizanidin e 4 mg tablet 10/16 completed Not Available Not Available Not Available fluconazo le 150 mg tablet take 1 tablet (150MG) by oral route once 11/01 completed Not Available Not Available Not Available valacyclo vir 1 gram tablet Take 1 tablet every day by oral route as directed for 5 days. active Not Available Not Available No t Available hydrocodo ne 5 mg-acetam inophen 325 mg tablet 11/01 completed Not Available Not Available Not Available Nystop 100,000 unit/gram topical powder 10/16 completed Not Available Not Available Not Available sucralfat e 100 mg/mL oral suspensio n 10/16 completed Not Available Not Available Not Available fluconazo le 200 mg tablet Take 1 tablet every other day x 3 doses. 06/15 completed Not Available Not Available Not Available sucralfat e 1 gram tablet 11/01 completed Not Available Not Available Not Available phenazopy ridine 200 mg tablet Take 1 tablet 3 times a day by oral route. 10/16 completed Not Available Not Available Not Available metronida zole 0.75 % (37.5 mg/5 gram) vaginal gel insert 1 applicat orful by vaginal route every day for 5 days at bedtime 10/16 completed Not Available Not Available Not Available Monistat 3 200 mg-2 % (9 gram) vaginal kit insert 1 Supposit ory by Vaginal route every day 06/02 completed Prescrib ed Elsewher e: No Locat ion: [facility] odify By: [email or web address] trick En counter DateTime : 12/21/19 12 11:24:55 AM Not Available Not Available Not Available Compazine 10 mg tablet take 1 tablet by oral route 3 times every day 09/29 completed Prescrib ed Elsewher e: No Locat ion: [facility] odify By: amkuhshravan Chaudhary ncounter DateTime : 02/09/20 18 04:30:00 PM Not Available Not Available Not Available fluoxetin e 10 mg tablet 11/01 completed Not Available Not Available Not Available sumatript an 50 mg tablet 10/16 completed Not Available Not Available Not Available metronida zole 500 mg tablet take 1 tablet by oral route 2 times every day 06/15 completed Not Available Not Available Not Available valacyclo vir 500 mg tablet Take 1 tablet daily by mouth for suppress hazel therapy active Not Available Not Available No t Available ciproflox acin 500 mg tablet 06/15 completed Not Available Not Available Not Available sulfameth oxazole 800 mg-trimet hoprim 160 mg tablet 11/01 completed Not Available Not Available Not Available omeprazol e 40 mg capsule,d elayed release 11/01 completed Not Available Not Available Not Available oxycodone -acetamin ophen 5 mg-325 mg tablet Take 1 tablet every 6 hours by oral route as directed for 5 days. 06/15 completed Not Available Not Available Not Available Tessalon Perles 100 mg capsule take 1 capsule by oral route 3 times every day as needed for cough 09/29 completed Prescrib ed Elsewher e: No Locat ion: [facility] odify By: amkuhshravan Chaudhary ncounter DateTime : 08/02/20 09:45:00 AM Not Available Not Available Not Available famotidin e 20 mg tablet 06/15 completed Not Available Not Available Not Available methocarb bola 750 mg tablet 11/01 completed Not Available Not Available Not Available Zoloft 50 mg tablet take 1 tablet by oral route every day 10/24 completed Prescrib ed Elsewher e: No Locat ion: [facility] odify By: amkuhshravan Chaudhary ncohectorer DateTime : 09/29/19 10:00:00 AM Not Available Not Available Not Available trazodone 100 mg tablet 10/16 completed Not Available Not Available Not Available meclizine 25 mg tablet 10/16 completed Not Available Not Available Not Available pantopraz ole 40 mg tablet,de layed release 12/22 completed Not Available Not Available Not Available misoprost ol 200 mcg tablet 11/01 completed Not Available Not Available Not Available ursodiol 300 mg capsule 10/16 completed Not Available Not Available Not Available glucose 4 gram chewable tablet 11/01 completed Not Available Not Available Not Available bupropion HCl 75 mg tablet 10/16 completed Not Available Not Available Not Available dextroamp hetamine- amphetami ne 15 mg tablet 11/01 completed Not Available Not Available Not Available gabapenti n 300 mg capsule Take 1 capsule 3 times a day by oral route. 11/01 completed Not Available Not Available Not Available omeprazol e 20 mg capsule,d elayed release 12/22 completed Not Available Not Available Not Available dextroamp hetamine- amphetami ne ER 10 mg 24hr capsule,e xtend release 04/04 completed Not Available Not Available Not Available hydroxyzi ne HCl 25 mg tablet 10/16 completed Not Available Not Available Not Available ergocalci ferol (vitamin D2) 1,250 mcg (50,000 unit) capsule take 1 capsule (79621GB ITS) by oral route every week 10/16 completed Not Available Not Available Not Available diazepam 10 mg tablet Take 1 tablet 3 times a day by oral route. 11/01 completed Not Available Not Available Not Available ibuprofen 600 mg tablet 12/22 completed Not Available Not Available Not Available scopolami ne 1 mg over 3 days transderm al patch 10/16 completed Not Available Not Available Not Available methylpre dnisolone 4 mg tablets in a dose pack Dose pack as directed 10/16 completed Not Available Not Available Not Available albuterol sulfate HFA 90 mcg/actua tion aerosol inhaler 06/15 completed Not Available Not Available Not Available ketoconaz ole 2 % topical cream 10/16 completed Not Available Not Available Not Available Zoloft 25 mg tablet take 1 tablet (25MG) by oral route every day 06/06 completed Prescrib ed Elsewher e: No Locat ion: [facility] odify By: [email or web address] trick En counter DateTime : 06/16/20 12 09:00:00 AM Not Available Not Available Not Available ondansetr on 4 mg disintegr ating tablet 11/01 completed Not Available Not Available Not Available fluoxetin e 20 mg capsule take 1 capsule by oral route every day in the morning 06/15 completed Not Available Not Available Not Available doxycycli ne hyclate 100 mg tablet 06/15 completed Not Available Not Available Not Available naproxen 500 mg tablet 10/16 completed Not Available Not Available Not Available metoclopr amide 10 mg tablet 11/01 completed Not Available Not Available Not Available amoxicill in 875 mg-potass ium clavulana te 125 mg tablet 10/16 completed Not Available Not Available Not Available amoxicill in 500 mg-potass ium clavulana te 125 mg tablet 05/30 completed Not Available Not Available Not Available oxycodone 5 mg tablet 11/01 completed Not Available Not Available Not Available NuvaRing 0.12 mg-0.015 mg/24 hr vaginal insert 1 vaginal ring by vaginal route every month leave in place for 3 weeks, remove for 1 week 02/08 completed Prescrib ed Elsewher e: No Locat ion: Yoshi chaudhary [facility] odify By: checo bustillo DateTime : 08/24/20 17 01:03:00 PM Not Available Not Available Not Available escitalop gerard 10 mg tablet 10/16 completed Not Available Not Available Not Available bupropion HCl XL 150 mg 24 hr tablet, extended release 10/16 completed Not Available Not Available Not Available FE 10/02 (28) 1 mg-20 mcg (21)/75 mg (7) tablet take 1 tablet by oral route every day 02/08 completed Prescrib ed Elsewher e: No Locat ion: Yoshi chaudhary [facility] odify By: checo Sheets ter DateTime : 10/05/19 18 09:00:00 AM Not Available Not Available Not Available escitalop gerard 5 mg tablet 11/01 completed Not Available Not Available Not Available nitrofura ntoin monohydra te/macroc rystals 100 mg capsule take 1 capsule by oral route every 12 hours with food, as directed 12/22 completed Not Available Not Available Not Available Vyvanse 20 mg capsule 10/16 completed Not Available Not Available Not Available Triveen-D uo DHA 29 mg-1 mg-400 mg oral pack take 1 by Oral route every day 06/02 completed Prescrib ed Elsewher e: No Locat ion: Yoshi chaudhary [facility] odify By: [email or web address] trick En counter DateTime : 01/15/20 12 04:43:15 PM Not Available Not Available Not Available Venatal Complete DHA 27 mg-1 mg-430 mg tablet and capsule,d elay releas take 2 by Oral route every day 01/14 completed Prescrib ed Elsewher e: No Locat ion: Yoshi chaudhary [facility] odify By: lee Encounte r DateTime : 11/03/19 12 01:30:23 PM Not Available Not Available Not Available iron ER 159 mg (45 mg iron) tablet,ex tended release 12/22 completed Prescrib ed Elsewher e: Yes Loca tion: Yoshi chaudhary [facility] odify By: [email or web address] E ncounter DateTime : 09/29/19 10:00:00 AM Not Available Not Available Not Available Nexplanon 68 mg subdermal implant Inject 1 implant as needed by subcutan eous route. 10/22 completed Not Available Not Available Not Available lidocaine 5 % topical ointment APPLY TO AFFECTED AREA(S) BY TOPICAL ROUTE 1-4 TIMES DAILY NEEDED 06/15 completed Not Available Not Available Not Available Vyvanse 10 mg capsule 11/01 completed Not Available Not Available Not Available Addyi 100 mg tablet TAKE 1 TABLET BY MOUTH EVERY DAY 04/04 completed Not Available Not Available Not Available 28 mg-800 mcg tablet 10/16 completed Prescrib eduardo chaudhary: Yes Loca tion: Yoshi chaudhary [facility] M odify By: sharon Chaudhary ncounter DateTime : 09/29/19 10:00:00 AM Not Available Not Available Not Available Aimovig Autoinjec tor 70 mg/mL subcutane ous auto-inje ctor 11/01 completed Not Available Not Available Not Available Bariatric Multivita mins 11/01 completed Not Available Not Available Not Available Ubrelvy 100 mg tablet 11/01 completed Not Available Not Available Not Available Gvoke 1 mg/0.2 mL subcutane ous solution 11/01 completed Not Available Not Available Not Available Veozah 45 mg tablet Take 1 tablet every day by oral route. active Not Available Not Available No t Available Vitals Date Recorded Body height Body mass index (BMI) Body weight Systolic blood pressure Diastolic blood pressure Provider Name and Address Organization Details Last Updated DateTime 07/01/2023 144.78 cm 23.2 kg/m2 25702.38 g 104 mm[Hg] 66 mm[Hg] [facility] 14:34:37 Date Recorded Body height Body mass index (BMI) Body weight Systolic blood pressure Diastolic blood pressure Provider Name and Address Organization Details Last Updated DateTime 08/09/2023 144.78 cm 23.2 kg/m2 05700.38 g 123 mm[Hg] 75 mm[Hg] [facility] 3 14:27:47 Date Recorded Body height Body mass index (BMI) Body weight Systolic blood pressure Diastolic blood pressure Provider Name and Address Organization Details Last Updated DateTime 11/01/2024 144.78 cm 22.9 kg/m2 33239.79 g 131 mm[Hg] 80 mm[Hg] Mercedes Waite [facility] 5 15:59:38 Date Recorded Body height Body mass index (BMI) Body weight Systolic blood pressure Diastolic blood pressure Provider Name and Address Organization Details Last Updated DateTime 11/15/2024 144.78 cm 22.7 kg/m2 61141.2 g 107 mm[Hg] 72 mm[Hg] ZORAN Crawley [facility] 5 17:47:36 Social History Question Answer Notes LastModified by Organizat ion Details LastModified Time Tobacco Smoking Status Never Smoker Ángel varela, [facility] 08/09/2023 14:18:32 Do You Have An Advance Directive? No Information not available 01/22/2021 What Is Your Level Of Alcohol Consumption? Occasional [email or web address] Information not available 05/30/2020 Are You Blind Or Do You Have Difficulty Seeing? No Information not available 01/22/2021 What Is Your Level Of Caffeine Consumption? Occasional Information not available 01/22/2021 How Much Tobacco Do You Chew? None Information not available 01/22/2021 In The 14 Days Before Symptom Onset, Have You Had Close Contact With A Laboratory-confir med COVID-19 While That Case Was Ill? No Information not available 01/22/2021 In The 14 Days Before Symptom Onset, Have You Had Close Contact With A Person Who Is Under Investigation For COVID-19 While That Person Was Ill? No Information not available 01/22/2021 Have You Been To An Area Known To Be High Risk For COVID-19? No Information not available 01/22/2021 Are You Deaf Or Do You Have Serious Difficulty Hearing? No Information not available 01/22/2021 What Type Of Diet Are You Following? REGULAR Information not available 01/22/2021 Do You Or Have You Ever Used E-cigarettes Or Vape? Never Used Electronic Cigarettes [email or web address] Information not available 08/09/2023 What Is The Highest Grade Or Level Of School You Have Completed Or The Highest Degree You Have Received? 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 No Information not available 01/22/2021 What Was The Date Of Your Most Recent Tobacco Screening? 05/30/2020 [email or web address] Information not available 08/09/2023 Do You Use Protection During Sex? No Information not available 01/22/2021 Do You Use Your Seat Belt Or Car Seat Routinely? Yes Information not available 01/22/2021 Do You Have Smoke And Carbon Monoxide Detectors In Your Home? Yes Information not available 01/22/2021 Do You Or Have You Ever Used Smokeless Tobacco? Never Used Smokeless Tobacco [email or web address] Information not available 08/09/2023 How Much Tobacco Do You Smoke? No [email or web address] Information not available 05/30/2020 Do You Feel Stressed (tense, Restless, Nervous, Or Anxious, Or Unable To Sleep At Night)? [id number] Information not available 01/22/2021 Do You Use Any Illicit Or Recreational Drugs? No Information not available 01/22/2021 Do You Use Sunscreen Routinely? Yes Information not available 01/22/2021 Have You Used IV Drugs? No Information not available 01/22/2021 Sex: Unknown Functional Status Question Answer Note LastModified by Organizat ion Details LastModified Time Do you have difficulty walking or climbing stairs? No [email or web address] Information not available 08/09/2023 Are you able to walk? [email or web address] Information not available 01/22/2021 Are you able to care for yourself? Yes Information not available 08/09/2023 Do you have difficulty dressing or bathing? No Information not available 08/09/2023 What is your exercise level? Occasional [email or web address] Information not available 05/30/2020 Mental Status None recorded. Family History Relationship Description Onset Age of this Age Resolved Age Notes LastModified by Organization Details LastModified Time Sister Mental disorder [email or web address] Not available 05/30 17:04:16 Brother Mental disorder Not available 05/30 17:04:16 Medical History Condition Response Heart Problems Y Acid Reflux (GERD) Y Headaches Y Asthma Y Gynecological History Statement/Question Response On BCP's at Conception? N N Was last menstrual period normal N STIs/STDs N HPV Vaccine Y Duration of Flow (days) 7 Current Control Method Hysterectom y Age at First Child 16 Frequency of Cycle (Q days) 28 Sexually Active? Y Menses Monthly N Age of first menstrual cycle 10 Date of Last Pap Smear 10/16/2022 Sexual Problems? Y Desired Control Method None LMP Unknown N Obstetrics History GPAL:G 2 P 2 0 0 2 Type Value Full Term 2 Living 2 Total 2 Past Encounters Encounter ID Performer Location Encounter Start Date Encounter Closed Date Diagnosis/Indication Diagnosis SNOMED-CT Code Diagnosis ICD10 Code Diagnosis Note [id number] Quincy Garcia MD [address] [address] 05/30/2020 15:45:06 06/02/2020 12:24:20 Abnormal uterine bleeding 0295987331 9100 N93.9 The patient and I disscussed the various causes of abnormal uterine bleeding, including polyps, fibroids, hyperplasi a, atypia, anovulatio n, etc. We reviewed the typical evaluation with labs, pelvic US and possible endometria l biopsy. Briefly discussed the options available for treatment (depending on the results of evaluation ) such as hormonal treatment (OCPs, progestins ), Mirena, endometria l ablation, and surgery. We spent more than 30 minutes face to face. [id number] Juliana Gates [place] [address],[facility] [place] [address] 06/10/2020 16:02:51 06/10/2020 16:43:20 Irregular periods 99477476 N92.6 [id number] Quincy Garcia MD [place] [address],[facility] [place] [address] 06/10/2020 16:03:07 06/10/2020 16:57:06 Reduced libido 4964158 R68.82 Abnormal u terine bleeding 8896127808 9100 N93.9 This patient is a 24-year-ol d female presents for abnormal uterine bleeding. She was evaluated by ultrasound and laboratory values. The we spent more than 15 minutes face-to-fa ce. More than 50% was counseling . We discussed treatment options. Ultimately we agreed that Nexplanon would be the appropriat e thing for controllin g her bleeding. It worked for her and eliminatin g herperiod twice before. She has a heart block andshould likely not use estrogen containing hormones. Patient also reports decreased sexual desire. We talked about treatment options. She will tryflibans erreginald [id number] Quincy Garcia MD [place] [address] [address] 06/25/2020 11:05:45 06/25/2020 13:33:57 Contraception care management 531767077 Z30.9 Nexplanon inserted without complicati on. She tolerated the procedure well. [id number] Quincy Garcia MD [place] [address] [address] 01/22/2021 13:58:24 01/22/2021 14:52:39 Dyspareunia [id number] N94.10 This patient is a 25-year-ol d female who presents for dyspareuni a. She has deep thrust dyspareuni a. She states the pain is getting worse. It is deep pain. It causes her to be nauseated and sweaty when it occurs. It lasts for several hours. It is brought on by intercours e only. She is tender on exam. The uterus is tender. We will obtain pelvic ultrasound . The patient will follow-up and we will discuss those results. [id number] Natahsa Beyer [place] [address] [address] 02/06/2021 13:53:03 02/06/2021 14:33:35 Pain in pelvis 47442279 R10.2 [id number] Quincy Garcia MD [place] [address] [address] 02/07/2021 15:47:47 02/07/2021 16:32:31 Urinary incontinence 871960638 R32 Cyst of ovary 69550048 N 83.209 Dyspareunia 76593813 N94 .10 this patient is a 25-year-ol d female presents for follow-up on dyspareuni a. Pelvic ultrasound was performed. The ultrasound showed a 3.7 cm ovarian cyst on the left. Her pain is on the left also. Talked about treatment options. We agreed to observe her ovarian cyst. The patient talked about episodes of copious watery fluid from the vagina. It would come in 1 gush and at times be in large amounts. Is have been 3 times. One time it was blood Tinged. We agreed to treat her with Pyridium to confirm that the the fluid is urine. needed to come back for urinalysis . She will need to return after the treatment with Pyridium. She needs 8 week follow-up on ovarian cyst with ultrasound . we discussed 2 complex topics with an unknown prognosis. [id number] Quincy Garcia MD [facility] [address],[place] [address] 02/28/2021 16:24:17 03/01/2021 10:35:05 Bacterial vaginosis [id number] N76.0 patient presents today for follow-up on watery vaginal discharge per the vagina. she was given peridium an as to determine if watery vaginal discharge per vagina was colored at the same time her urine was color. It was not. It ran down her leg. She wiped it off and it was Not colored. She will be referred to Urogynecol renny. She does have some odorous vaginal discharge. She will be treated with Flagyl. No itching no irritation [id number] Juliana Gates [facility] [address],[place] [address] 04/03/2021 11:25:23 04/03/2021 12:20:36 Cyst of left ovary [id number] N83.202 R10.2 [id number] Quincy Garcia MD [facility] [address],[place] [address] 04/04/2021 09:19:52 04/04/2021 10:03:25 Cyst of ovary [id number] N83.209 this patient is a 25-year-ol d female presents for follow-up on ovarian cyst. She had a pelvic ultrasound . Her previously seen ovarian cyst has resolved and now she has a large follicle on the contralate ral side. She has no symptoms. We talked about cysts , how they occur, why she might be vulnerable to cyst formation. We agreed not to observe the new cyst. It appears physiologi c. She will contact us for symptoms. [id number] Quincy Garcia MD [facility] [address],[place] [address] 10/22/2021 14:38:45 10/22/2021 15:25:43 Contraception care management [id number] Z30.9 Nexplanon removed without complicati on. She tolerated the procedure well. [id number] Quincy Garcia MD [facility] [address],[place] [address] 10/16/2022 11:16:07 10/19/2022 15:11:32 Pain in pelvis [id number] R10.2 Dysmenorrhea 469273033 N 94.6 Menorrhagia [id number] N9 2.0 this patient is a 22-year-ol d with severe menorrhagi a. Her bleeding is profound. It causes accidents. She gets it on her bedding and clothing. Is disrupted work and caused her to leave work. We reviewed all the data pertain to her case. We talked about treatment options. She has failed medical treatment for menorrhagi a. Medical treatment even caused her to bleed worse. Reviewed medical options. She feels she has exhausted medical options. She also has some significan t pain with bleeding. The pain is debilitati ng. These are longstandi ng problems. They have been there for many years She was also described other procedures for bleeding. She would like to proceed with definitive surgical treatment. We talked about robotic hysterecto my in detail. I explained the procedure in great detail. We spent over 40 minutes face-to-fa ce and made a decision to perform surgery. We will proceed with robotic assisted total hysterecto my and bilateral salpingect declan. She will keep her ovaries at this time. [id number] Quincy Garcia MD [facility] [address] [address] 11/27/2022 13:49:47 11/27/2022 14:43:35 Menorrhagia [id number] N92.0 this patient is a 27-year-ol d female severe menorrhagi a. We have agreed to perform robotic assisted hysterecto my bilateral salpingect declan. She understand s risks, benefits, and alternativ es. She has completed the informed consent process and is ready to proceed. [id number] Quincy Garcia MD [facility] [address],[place] [address] 12/11/2022 13:44:41 12/11/2022 15:55:41 Menorrhagia [id number] N92.0 This patient is a 27-year-ol d female presents for follow-up after laparoscop ic surgery. We started the surgery with hysterecto my as our plan. A opaque fluid that appeared to be pus was present in the pelvis. Cultures and Gram stain of this fluid did not reveal any organisms. Patient had no symptoms of pelvic inflammato ry disease. There did not appear to be any other signs of skin pelvic inflammato ry disease such as scarring inflammati on. There was pus-like fluid though with in the pelvis and proceed discontinu e we have agreed to proceed with hysterecto my again with the same plan. [id number] [facility] [address],[place] [address] 12/22/2022 09:31:48 12/22/2022 10:09:56 Herpes simplex 48069415 B00.9 Suspect HSV on exam.Labs orderedCx sentUpdate d std swab sent Counseled on HSV with questions answered & understand ing verbalized .Rx sent Valtrex Counseled on medication R/B's, Most common side effects, & use. All questions were answered to patient satisfacti on. Time spent in visit is a total of 20 mins with at least 50% of visit consisting of counseling and review of plan of care. 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 All questions were answered to patient satisfacti on. Genital he rpes simplex [id number] A60.9 Started Valtrex 12/22/22Con tinue this medication Comfort care: sitz soaks, ice packs, lose clothing; pain medication prn (unable to take NSAIDS d/t bariatric surgery).S cript copied and scanned into chart. Time spent in visit is a total of 15 mins with at least 50% of visit consisting of counseling and review of plan of care. [id number] Mercedes Waite [facility] [address],[place] [address] 02/09/2023 10:34:30 02/09/2023 10:35:24 [id number] Quincy Garcia MD [place] [address],[place] [address] 02/10/2023 14:47:15 02/10/2023 15:34:07 Postoperative care [id number] Z48.89 27-year-ol d female who is postop week 1 from a hysterecto my. She had a robotic hysterecto my with bilateral salpingect declan. She is recovering normally. Her incisions are clean dry and intact. She looks well. She has no complaints . No vaginal bleeding. She will follow-up as needed. [id number] Quincy Garcia MD [facility] [address],[place] [address] 02/18/2023 14:52:49 02/18/2023 17:41:56 Vaginal discharge 040394486 N89.8 A 27-year-ol d female presents for foul-smell ing vaginal discharge. She is 2 weeks postop from a hysterecto my. . Vaginal cuff was examined. It is intact. There was no egress of discharge. There is no excessive discharge in the vagina. She reports the odor as fishy. It is not overwhelmi ng. Swabs were obtained. She was given precaution s about pelvic abscess at, fever, nausea, vomiting we will continue to observe. She looks well. [id number] Quincy Garcia MD [facility] [address],[place] [address] 06/15/2023 14:00:21 06/15/2023 15:08:49 Herpes simplex 66492799 B00.9 27-year-ol d female recurrent HSV. She had multiple outbreaks in last 8. To begin suppressiv e therapy. The vulva was examined. There is the appearance a possible herpes lesion labia minora on the left side. 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 She is endometrio sis and is status post hysterecto my with possible adhesions or ovary adherent to the vaginal cuff. This is to complex problems. We spent over 40 minutes face-to-fa ce. More than 50% was counseling . She is tender on exam with tight musculatur e surroundin g the vaginal introitus, there is also tenderness on the vaginal cuff. We have elected to perform a pelvic ultrasound . We also agreed to start vaginal Valium and gabapentin . We are going to consider laparoscop y for the dyspareuni a on the vaginal cuff. There was possibly endometrio sis, possibly adhesions and ovaries on the back of the vaginal cuff. We talked about physical therapy for the vaginismus . Endometrio sis of pelvis 59150040 N80.9 Chronic pe lvic pain of female 299092205 R10.2 [id number] [facility] [address] [address] 07/06/2023 13:47:37 07/06/2023 14:23:28 Pain in pelvis 59237839 R10.2 [id number] Quincy Garcia MD [facility] [address],[place] [address] 08/09/2023 14:18:11 08/09/2023 15:02:41 Vaginismus due to non-psychogenic cause 743905196 N94.2 28-year-ol d female with vaginismus . She did report some improvemen t with the vaginal Valium . She was not contacted for pelvic floor therapy, jean-claude hemphill pelvic pain expert. Reports new symptoms urge and /or interstiti al cystitis symptoms. to follow-up on pelvic floor therapy. We spent 20 minutes face-to-fa ce. More than 50% was counseling . She has urge and painful bladder at the time of voiding. Reviewed ultrasound results. normal pelvic ultrasound , status post hysterecto my. Dysuria 73566565 R30.0 [id number] ELO Sagastume [facility] [address],[place] [address] 11/01/2024 15:49:50 11/01/2024 16:35:38 Genital herpes simplex 79108312 A60.9 HSV appearing lesions on examrx sent for valtrex course - r/b/a reviewedsu pportive care discussed Recurrent genital herpes simplex 148238756 A60.00 would like to restart suppressiv e therapy for frequent outbreaksr x sent, start after completing 1g daily course for current outbreakqu estions answereden couraged to schedule [employer] Time spent in visit is a total of 22 mins with at least 50% of visit consisting of counseling and review of plan of care. [id number] Mercedes Waite [facility] [address],[place] [address] 11/15/2024 17:00:57 11/16/2024 09:15:35 Reduced libido 2873774 R68.82 Gynecologi c examination 17501993 Z01.419 Annual gynecologi loan exam performed. Patient will come back in a year unless there are new symptoms. Suggest Calcium with Vitamin D if not eating in diet. Patient advised to get annual flu shot. Recommend yearly physicals and preform monthly breast exams. Genetic testing is available for patients with family history of cancer. Engage in safe sexual practices, use condoms. Encouraged to have daily exercise. Avoid tobacco and illicit drugs, moderation of alcohol. If BMI greater than 25 dietary consult advised. If you have any questions please call or email. Pap smear- TODAY laboratory evaluation - done patient had a normal vulvar and vaginal exam. She is occasional bleeding. It is pink tinged discharge. Patient is not sexually active. Patient has diminished libido. She for a long time has had no sexual desire. We agreed to a trial of Veozah Pain in pelvis 46639366 R10.2 Health Concerns Section Related Observation LastModified by Organization Detai ls LastModified Time None Recorded Concern Status LastModified by Organization Details LastModified Time None Recorded Advance Directives Directive N: Payers Encounter Date Sequence Insurance Name Policy Number Policy Drew Covered Member ID Drew Member ID Guarantor Name 07/01/2023 1 [facility] ON OR AFTER 03/13/21 (MEDICAID REPLACEMENT - HMO) Vonda Packer [id number] Vonda Packer 07/01/2023 1 [facility] - OPEN ACCESS III (PPO) [id number] Vonda Packer [id number] Vonda Packer 07/06/2023 1 [facility] ON OR AFTER 03/13/21 (MEDICAID REPLACEMENT - HMO) Vonda Packer [id number] Vonda Packer 07/06/2023 1 [facility] - OPEN ACCESS III (PPO) [id number] Vonda Packer [id number] Vonda Packer 08/09/2023 1 [facility] ON OR AFTER 03/13/21 (MEDICAID REPLACEMENT - HMO) Vonda Packer [id number] Vonda Packer 08/09/2023 1 [facility] - OPEN ACCESS III (PPO) [id number] Vonda Packer [id number] Vonda Packer 11/01/2024 1 [facility] ON OR AFTER 03/13/21 (MEDICAID REPLACEMENT - HMO) Vonda Packer [id number] Vonda Packer 11/15/2024 1 [facility] ON OR AFTER 03/13/21 (MEDICAID REPLACEMENT - HMO) Vonda Packer [id number] Vonda Packer Notes Date Note Type Note Provider Name and Address Organization Details Recorded Time 07/01/2023 text/html this patient is a 27-year-old female who presents for pain with intercourse. patient is status post hysterectomy. She hysterectomy for pelvic pain and endometriosis. She is pain with insertion of the penis and deep penetration. It was pain at the introitus and also feels like something is getting hit deeper that causes pain. She denies any abnormal vaginal discharge. She denies a history of chlamydia gonorrhea. She is normal bowel movements. She is no urinary symptoms. Her bowel movements are regular. Pain has been going on for several months Quincy Garcia MD [address], [place], [address], [facility] 07/01/2023 20:48:31 08/09/2023 text/html 28-year-old fema le with vaginismus. She did report some improvement with the vaginal Valium . She was not contacted for pelvic floor therapy, considering pelvic pain expert. Reports new symptoms urge and /or interstitial cystitis symptoms. to follow-up on pelvic floor therapy. We spent 20 minutes [id number]. More than 50% was counseling. She has urge and painful bladder at the time of voiding. Reviewed ultrasound results. normal pelvic ultrasound, status post hysterectomy. Quincy Garcia MD [address], [place], [address], [facility] 08/09/2023 14:59:19 11/01/2024 text/html 29yopresents wit h complaints of vulvar lesionsymptoms present 1-2 dayslesion is tender/red/burnsh/o genital HSV, was taking daily valtrex for h/o frequent outbreaks but ran out of refills ELO Sagastume [address], [place], [address], [facility] 11/01/2024 16:30:14 11/15/2024 text/html Annual GYNReport ed bypatient.History:no gynecologic complaints Urinary symptoms:No hematuria; No incontinence Vulva:No genital lesion Vagina:Normal vaginal discharge Breast:No breast pain; No breast lump Sexual complaints:Sexual complaints;Decreased libido Psychological symptoms:No depression; No anxiety Preventive measures:Encourage self breast examination; Encourage regular exercise Mercedes Waite [facility] 11/15/2024 18:47:29 OBGyn Episode Ob Episode Information Episode Created Date Number of Fetuses Patient Bloodtype Patient rh Status Prepregnancy Weight lbs Domestic Partner Domestic Partner Phone Father Name Toggler Status 05/30/20 20 1 CLOSED Fetus Data First Name Last Name Admitted to NICU Weight (g) Sex Living Outcome Pediatric Complications Fetus ID Race Codes Race Delivery Type 3430.06 2704 F Full Term 4605 Repeat Anuel Calculation Initial Anuel Date Initial Exam Date Initial Exam Provider Initial Ultrasound Date Last Menstrual Period Date Ultra Sound Weeks Gestation 0 Eighteen To Twenty Week Anuel Update Ultra Sound Date Fundal Height At Umbil Quickening Date Ultra Sound Latest Weeks Gestation Final Anuel Confirmed By Final Anuel Confirmed Date Final Anuel Date Ultra Sound Latest Days Gestation 0 0 Menstrual History Last Menstrual Date Menses Monthly On Bcp Conception Prior Menses Frequency Hcg Plus Date Menarche Onset Age Delivery Information Delivery Date Delivery Type Labor Anesthesia Weeks Gestation Incision Type Labor Labor Length Hrs Delivered By Post Complications Tubal Sterilization Discharge Date Comments 9 39 Discharge Information Feeding Method Contraceptive Method Maternal HG B and HCT Levels Ob Episode Information Episode Created Date Number of Fetuses Patient Bloodtype Patient rh Status Prepregnancy Weight lbs Domestic Partner Domestic Partner Phone Father Name Toggler Status 05/30/20 20 1 CLOSED Fetus Data First Name Last Name Admitted to NICU Weight (g) Sex Living Outcome Pediatric Complications Fetus ID Race Codes Race Delivery Type 3288.54 2 M Full Term 4604 Primary Anuel Calculation Initial Anuel Date Initial Exam Date Initial Exam Provider Initial Ultrasound Date Last Menstrual Period Date Ultra Sound Weeks Gestation 0 Eighteen To Twenty Week Anuel Update Ultra Sound Date Fundal Height At Umbil Quickening Date Ultra Sound Latest Weeks Gestation Final Anuel Confirmed By Final Aneul Confirmed Date Final Anuel Date Ultra Sound Latest Days Gestation 0 0 Menstrual History Last Menstrual Date Menses Monthly On Bcp Conception Prior Menses Frequency Hcg Plus Date Menarche Onset Age Delivery Information Delivery Date Delivery Type Labor Anesthesia Weeks Gestation Incision Type Labor Labor Length Hrs Delivered By Post Complications Tubal Sterilization Discharge Date Comments 2 38 Luciano Discharge Information Feeding Method Contraceptive Method Maternal HG B and HCT Levels
--- OUTSIDE RECORDS SUMMARY | 2025-01-04 07:49 | XMS_ITS | Data Portability ---
Author Organization [facility] [employer], Main Office Address [address] [place] [address] Assessment Encounter Date Assessment Date Assessment LastModified by Organization Details LastModified Time 03/25/2023 03/25/2023 D/w pt about her findings and further plan of care. Recent ED records reviewed with pt. Explained about different options for her. Meds as directed. OTC Tums/Antacids po daily prn. OTC Tylenol po q6-8hrs prn. Very good yogurt and OTC Probiotics/Acido philus as directed prn. Very good liquid intake explained in detail. Educated about alarming symptoms to monitor at home and call us back or get checked in ED in that case. Pt verbalized understanding it. Advised pt to f/u with her Cardio, Gyne and Bariatric surgeon in few days/weeks as directed. F/u with PCP as directed. [email or web address] Not available 03/25/2023 11:39:28 Plan of Treatment Reminders Order Date Submit Date Provider Last Modified By Organization Details Last Modified Time Details Appointments None recorded. Lab hsv (1+2) igg Ab, serum 2022 023 [email or web address] [facility], [address], [address] [address], [place], [address], 3 14:47:39 urinalysis, dipstick 2022 023 [facility], [address] [place] [address], [address], 17:03:51 culture, urine 2022 023 [facility], [address], [address], [place], [address], 3 10:10:16 Referral None recorded. Procedures None recorded. Surgeries None recorded. Imaging None recorded. Medication Orders [employer] Autoinjecto r 70 mg/mL subcutaneou s auto-inject or [address] [id number], [address] [facility], [place], [place], [id number], 3 08:33:50 buspirone 5 mg tablet 2022 023 [facility]60420, [address] [facility], [place], [place], [id number], 3 14:34:48 Vyvanse 10 mg capsule 2022 023 [facility] #[id number], [address] [facility], [place], [place], [id number], 3 14:34:51 ondansetron 4 mg disintegrat ing tablet [address] [facility]12815, [address] [facility], [place], [place], [id number], 3 14:02:37 famotidine 20 mg tablet [address] [facility]24316, [address] [facility], [place], [id number], 3 14:02:47 ciprofloxac in 500 mg tablet [address] [facility]11024, [address] [facility], [place], [place], [id number], 3 14:02:27 metronidazo le 500 mg tablet [address] [facility]47940, [address] [facility], [place], [place], [id number], 3 14:02:40 [employer] Autoinjecto r 70 mg/mL subcutaneou s auto-inject or [address] [facility]25113, [address] [facility], [place], [place], [id number], 3 08:33:50 fluoxetine 20 mg capsule [address] [facility]10374, [address] [facility], [place], [place], [id number], 3 14:02:51 Patient TargetsNo targets recorded. Patient Instructions Encounter Date Encounter Id Patient Instructions Last Modified By Organization Details Last Modified Time 01/26/2023 [id number] Fu in 6 weeks fo r check up anxiety, adhd, migraines. Not available 01/26/2023 09:18:13 04/20/2023 [id number] 1 mo fu anxiety and adhd. Not available 04/20/2023 14:35:40 07/29/2023 [id number] FU in 3 mo for adhd, insomnia, gerd, hx gastric bypass, anxiety. Not available 07/29/2023 09:09:39 Reason for Referral None Reported. Results Created Date Observation Date Name Description Value Unit Range Abnormal Flag Note LastModifiedBy Organization Detail LastModifiedTime 03/25/2003/25/2023 CULTU RE URINE urc ===== ===== ===== ===== ===== ===== ===== ===== ===== ===== ===== ===== ===== ===== ===== ===== ===== ===== ===== ===== ===== ===== ===== ===== CULTU RE NO.: [id number] Exam Statu s: Final Exam Type: CULTU RE URINE ===== ===== ===== ===== ===== ===== ===== ===== ===== ===== ===== ===== ===== ===== ===== ===== ===== ===== ===== ===== ===== ===== ===== ===== Cultu re Repor t: Organ ism #01 Klebs iella pneum oniae ssp pneum oniae (klep ne) Antib iotic s klepn e Achie vable Achie vable (01) Dosag e Serum Level Urine Level mcg/m l mcg/m l [place] <=2 S 021D Ampic illin >=32 R 021D Ampic illin /Sulb actam 4 S 021D Cefaz bora <=4 S 021D Cefep good <=1 S 021D Cefox itin <=4 S 021D Ceftr iaxon e <=1 S 021D Cipro floxa hilton <=0.2 5 S 021D ESBL NEG - 021D Genta micin <=1 S 021D Levof loxac in <=0.1 2 S 021D Merop enem <=0.2 5 S 021D Piper acill in./T azaba <=4 S 021D Tobra mycin <=1 S 021D Trmet hopri m.Sul fa <=20 S 021D rt - Test Card Code AST-G N 021D o2 - Final Organ ism KLEBS I 021D af - Antib iotic Fami TRIME T 021D af - Antib iotic Famil y Na ap - Pheno type Name WILD 021D ap - Pheno type Name Nitro furan toin 64 I 021D Not Available [facility] (Lab) [address] [place], [address], 03/28/2023 09:12:26 03/26/20 23 03/26/2023 urina lysis , dipst ick Leukocytes (reference range: negative shsohana/ l) Negati ve Not Available [address], [address], 03/25/2023 11:32:44 03/26/20 23 03/26/2023 urina lysis , dipst ick Nitrite (reference rage: negative mg/dl) positi ve Not Available [address], [address], 03/25/2023 11:32:44 03/26/2003/26/2023 urina lysis , dipst ick Urobilinogen (reference range: 0.2-1 mg/dl) 1 Not Available [address], [address], 03/25/2023 11:32:44 03/26/2003/26/2023 urina lysis , dipst ick Protein (reference range: negative mg/dl) Trace Not Available [address], [address], 03/25/2023 11:32:44 03/26/20 23 03/26/2023 urina lysis , dipst ick pH (reference range: 5-7) 5.0 Not Available [address], [address], 03/25/2023 11:32:44 03/26/20 23 03/26/2023 urina lysis , dipst ick Blood (reference range: negative Brian/ l) Hemoly zed: Trace Not Available [address], [address], 03/25/2023 11:32:44 03/26/20 23 03/26/2023 urina lysis , dipst ick Specific [place] (reference range: 1.005-1.030) 1.015 Not Available [address], [address], 03/25/2023 11:32:44 03/26/20 23 03/26/2023 urina lysis , dipst ick Ketone (reference range: negative mg/dl) Small Not Available [address], [address], 03/25/2023 11:32:44 03/26/2003/26/2023 urina lysis , dipst ick Bilirubin (reference range: negative mg/dl) Trace Not Available [address], [address], 03/25/2023 11:32:44 03/26/2003/26/2023 urina lysis , dipst ick Glucose (reference range: negative mg/dl) Negati ve Not Available [address], [address], 03/25/2023 11:32:44 03/26/2003/26/2023 urina lysis , dipst ick Appearance Slight ly Cloudy Not Available [address], [address], 03/25/2023 11:32:44 03/26/20 23 03/26/2023 urina lysis , dipst ick Color Pale Yellow Not Available [address], [address], 03/25/2023 11:32:44 04/20/20 23 04/22/2023 HERPE S/HSV 1 hsv type 1 IgG 6.75 index 0.00-0 .90 high Negat hazel <0.91 Equiv ocal 0.91 - 1.09 Posit hazel >1.09 Note: Negat hazel indic ates no antib odies detec ofe to HSV-1 . Equiv ocal may sugge st early infec tion. If clini michael appro priat e, retes t at later date. Posit hazel indic ates antib odies detec ofe to HSV-1 . Not Available [facility] (Lab) [address] [place], [address], 04/22/2023 10:13:04 04/20/20 23 04/22/2023 HERPE S/HSV 1 hsv type 2 IgG <0.91 index 0.00-0 .90 Negat hazel <0.91 Equiv ocal 0.91 - 1.09 Posit hazel >1.09 HSV-2 Antib june Inter preta tion: Negat hazel indic ates no detec table antib odies to HSV-2 were found . If recen t expos ure is suspe cted, retes t in 4-6 weeks . Equiv ocal sampl es shoul d be retes ofe in 4-6 weeks . Posit hazel indic ates the prese nce of detec table IgG antib june to HSV-2 . False posit hazel resul ts may occur . Repea t testi ng, or testi ng by a diffe rent metho d, may be indic ated in some setti ngs (e.g. patie nts with low likel ihood of HSV infec tion) . If clini michael appro priat e, retes t 4-6 weeks later . Perfo rmed at: - [facility] [address] [facility], [place] [address] Lab Direc tor: Kenny camacho PhD, Phone : [phone] Not Available [facility] (Lab) [address] [place], [address], 04/22/2023 10:13:04 11/22/19 23 11/21/2022 CT, abdom en + pelvi s, w/o contr ast No observ ation record ed. [id number], [place], [address], 11/24/2022 13:24:12 12/01/19 23 11/30/2022 CT, abdom en + pelvi s, w/o contr ast No observ ation record ed. [id number], [place], [address], 12/01/2022 20:30:53 12/05/19 23 12/04/2022 US, abdom en, limit ed No observ ation record ed. [address] [address], [place], [address], 12/04/2022 14:00:23 02/18/20 23 02/17/2023 CT, abdom en + pelvi s, w/o contr ast No observ ation record ed. [email or web address] [address], [place], [address], 03/25/2023 11:38:42 05/18/20 23 05/18/2023 US, abdom en No observ ation record ed. [address] [address], [place], [address], 05/18/2023 14:24:53 Result Notes None recorded. Problems Name Problem SNOMED Code Status Onset Date Resolution Date Notes Provider Name and Address Organization Details Recorded Time Viral gastroenteri tis 087778210 Active 2021 Not Available [facility] 3 01:12:36 Panic attack 276229652 Active 2020 Not Available [facility] 3 01:12:36 Gastroesopha geal reflux disease 869089286 Active 2019 Not Available [facility] 3 01:12:36 Morbid obesity 860416324 Active 2020 Not Available [facility] 3 01:12:36 Viral myalgia 382256391 Active 2021 Not Available [facility] 3 01:12:36 test positive 313960117 Active 2019 Not Available [facility] 3 01:12:36 Pain in right arm 997880185 Active 2019 Not Available [facility] 3 01:12:36 Bronchitis 11928791 Active 2021 Not Available [facility] 3 01:12:36 Vitamin D deficiency 88902404 Active 2019 Not Available [facility] 3 01:12:36 Attention deficit hyperactivit y disorder, predominantl y inattentive type 15072979 Active 2019 Not Available [facility] 3 01:12:37 Depressive disorder 35675499 Active 2017 Not Available [facility] 3 01:12:37 Migraine 20595733 Active 2019 Not Available [facility] 3 01:12:37 Fever 703624603 Active 2021 Not Available [facility] 3 01:12:37 Obese 412086993 Active 2019 Not Available [facility] 3 01:12:37 Obesity 572941298 Active 2019 Not Available [facility] 3 01:12:37 Posttraumati c stress disorder 50791801 Active 2017 Not Available [facility] 3 01:12:37 Anxiety 11961435 Active 2017 Not Available [facility] 3 01:12:37 Mobitz type I incomplete atrioventric ular block 50285607 Active 2019 Seeing Cardiol ogy. Not Available [facility] 3 01:12:37 Mixed anxiety and depressive disorder 973848002 Active 2022 Es Martin NP [address] [facility], [facility] [address], [place], [address] , [facility] [employer] [facility] 3 09:10:36 Wheezing 31650522 Active 2022 Es Martin NP [address], [address], [place], [address] , [employer] 3 12:35:27 Lower abdominal pain 63957082 Active 2022 Gonzales Chowdhury MD [address], [address], [place], [address] , [employer] 3 11:32:41 Gastroenteri tis 31071218 Active 2022 Gonzales Chowdhury MD [address], [address], [place], [address] , [employer] 3 11:35:51 Nausea and vomiting 46064154 Active 2022 Gonzales Chowdhury MD [address], [address], [place], [address] , [employer] 3 11:36:24 Near syncope 678399915 Active 2022 Gonzales Chowdhury MD [address], [address], [place], [address] , [employer] 3 11:37:29 Urinary tract infectious disease 36878958 Active 2022 Gonzales Chowdhury MD [address], [address], [place], [address] , [employer] 3 12:06:07 Herpes labialis 4370825 Active 2022 Es Martin NP [address], [place], [address] , [employer] 3 14:23:05 Herpes simplex type 1 infection 512844287 Active 2022 Es Martin NP [address], [place], [address] , [employer] 3 10:37:33 Problem Notes None recorded. Procedures Surgical History Date Name Laterality Status Provider Name and Address Organization Details Recorded Time 02/03/20 hysterectomy completed Es Martin NP [address], [address], [place], [address], [place] [facility] [employer] 02/09/2023 21:02:22 12/16/19 Gastric Bypass completed Not Available [facility] 11/11 01:06:50 Ear Tubes completed Not Available [facility] 0 11/11/2022 01:06:50 Imaging Results Imaging Date Name Status LastModified by Organiz ation Details LastModified Time 11/21/2022 CT, abdomen + pelvis, w/o contrast completed [address], [address], 11/24/2022 13:24:12 11/30/2022 CT, abdomen + pelvis, w/o contrast completed [address], [address], 12/01/2022 20:30:53 12/04/2022 US, abdomen, limited completed [address], [address], 12/04/2022 14:00:23 02/17/2023 CT, abdomen + pelvis, w/o contrast completed [email or web address], [address], 03/25/2023 11:38:42 05/18/2023 US, abdomen completed [address], [address], 05/18/2023 14:24:53 Procedure Notes None recorded. Medical Equipment None Reported. Allergies Allergen ID Allergen Name Allergen Category Reaction Reaction Severity Criticality Documentation Date Start Date Code Code System Note Provider Name and Address Organization Details Recorded Time 1986 Vyvanse medicatio n Not available Not available Not available 11/11/2022 17894 3 RxNorm grind ing teeth . Es Salvador RN null, [facility] [employer] 3 08:45:44 1988 phentermi ne medicatio n other moderate Not available 11/11/2022 8152 RxNorm Mobit z type 1 Not Available [facility] 3 01:18:46 1989 latex environme nt,medica tion Not available Not available Not available 11/11/2022 73817 91 RxNorm Blist er Not Available [facility] 3 01:18:46 Medications Name Sig Start Date Stop Date Status Note LastModified by Organization Details LastModified Time cyclobenz aprine 10 mg tablet active Not Available Not Available No t Available amoxicill in 500 mg capsule active Not Available Not Available Not Available buspirone 5 mg tablet Take 1 tablet twice a day by oral route. active Not Available Not Available No t Available prednison e 10 mg tablet Take 1 tablet every day by oral route as directed for 7 days. 01/26 completed Take 40mg on day 1,2; Than 20mg on day 3,4; Than 10mg on day 5,6,7. Take with food, do not take on empty stomach. Not Available Not Available Not Available trazodone 50 mg tablet 03/24 completed Not Available Not Available Not Available Stool Softener 100 mg capsule 03/24 completed Not Available Not Available Not Available ibuprofen 800 mg tablet Take 1 tablet 3 times a day by oral route as needed. active Not Available Not Available No t Available tizanidin e 4 mg tablet Take 1 tablet every 6 hours by oral route as needed. active Not Available Not Available No t Available valacyclo vir 1 gram tablet 01/26 completed Not Available Not Available Not Available hydrocodo ne 5 mg-acetam inophen 325 mg tablet 01/26 completed Not Available Not Available Not Available Nystop 100,000 unit/gram topical powder 01/26 completed Not Available Not Available Not Available sucralfat e 100 mg/mL oral suspensio n 03/24 completed Not Available Not Available Not Available fluconazo le 200 mg tablet 01/26 completed Not Available Not Available Not Available sucralfat e 1 gram tablet active Not Available Not Available Not Available phenazopy ridine 200 mg tablet 03/24 completed Not Available Not Available Not Available ondansetr on HCl 4 mg tablet 09/01 completed Not Available Not Available Not Available Medrol (Kevan) 4 mg tablets in a dose pack Take po as directed on label 10/22 completed Not Available Not Available Not Available Zithromax Z-Kevan 250 mg tablet TAKE 2 TABLETS (500 MG) BY ORAL ROUTE ONCE DAILY FOR 1 DAY THEN 1 TABLET (250 MG) BY ORAL ROUTE ONCE DAILY FOR 4 DAYS 10/22 completed Not Available Not Available Not Available phentermi ne 15 mg capsule TAKE 1 CAPSULE BY MOUTH ONCE DAILY active Not Available Not Available No t Available sumatript an 50 mg tablet active Not Available Not Available Not Available metronida zole 500 mg tablet Take 1 tablet every 8 hours by oral route as directed for 5 days. 04/20 completed Not Available Not Available Not Available prochlorp erazine maleate 10 mg tablet 09/01 completed Not Available Not Available Not Available valacyclo vir 500 mg tablet active Not Available Not Available No t Available ciproflox acin 500 mg tablet Take 1 tablet every 12 hours by oral route as directed for 5 days. 04/20 completed Not Available Not Available Not Available omeprazol e 40 mg capsule,d elayed release active Not Available Not Available Not Available ondansetr on 8 mg disintegr ating tablet Place 1 tablet every 8 hours by translin gual route for 2 days. 04/07 completed Not Available Not Available Not Available lamotrigi ne 25 mg tablet 09/01 completed Not Available Not Available Not Available oxycodone -acetamin ophen 5 mg-325 mg tablet 01/26 completed Not Available Not Available Not Available famotidin e 20 mg tablet Take 1 tablet twice a day by oral route as directed for 30 days. 04/20 completed Not Available Not Available Not Available trazodone 100 mg tablet Take 1 tablet twice a day by oral route. 01/26 completed Not Available Not Available Not Available meclizine 25 mg tablet Take 1 tablet 3 times a day by oral route as needed. 03/24 completed Not Available Not Available Not Available pantopraz ole 40 mg tablet,de layed release 01/26 completed Not Available Not Available Not Available oseltamiv ir 75 mg capsule 09/01 completed Not Available Not Available Not Available triamcino lone acetonide 0.1 % topical ointment 09/01 completed Not Available Not Available Not Available misoprost ol 200 mcg tablet 07/29 completed Not Available Not Available Not Available ursodiol 300 mg capsule 03/24 completed Not Available Not Available Not Available bupropion HCl 75 mg tablet Take 1 tablet twice a day by oral route. 01/26 completed can't be on XL form due to gastric surgery. Not Available Not Available Not Available fluoxetin e 10 mg capsule 09/01 completed Not Available Not Available Not Available omeprazol e 20 mg capsule,d elayed release Take 1 capsule every day by oral route. 01/26 completed Not Available Not Available Not Available dextroamp hetamine- amphetami ne ER 10 mg 24hr capsule,e xtend release Take 1 capsule every day by oral route. 01/14 completed made teeth hurt Not Available Not Available Not Available hydroxyzi ne HCl 25 mg tablet TAKE 1 TABLET BY MOUTH THREE TIMES DAILY NEEDED 01/26 completed Not Available Not Available Not Available amoxicill in 400 mg/5 mL oral suspensio n 10/04 completed Not Available Not Available Not Available ergocalci ferol (vitamin D2) 1,250 mcg (50,000 unit) capsule Take 1 capsule every week by oral route. 01/26 completed Not Available Not Available Not Available diazepam 10 mg tablet active Not Available Not Available Not Available ibuprofen 600 mg tablet 01/26 completed Not Available Not Available Not Available polyethyl kenrick glycol 3350 17 gram/dose oral powder 03/24 completed Not Available Not Available Not Available scopolami ne 1 mg over 3 days transderm al patch 03/24 completed Not Available Not Available Not Available albuterol sulfate HFA 90 mcg/actua tion aerosol inhaler INHALE 2 PUFFS BY MOUTH EVERY 4 HOURS active Not Available Not Available No t Available ketoconaz ole 2 % topical cream 01/26 completed Not Available Not Available Not Available ondansetr on 4 mg disintegr ating tablet DISSOLVE 1 TABLET ON THE TONGUE EVERY 6 TO 8 HOURS FOR 5 DAYS NEEDED 04/20 completed Not Available Not Available Not Available fluoxetin e 20 mg capsule Take 1 capsule( s) every day by oral route. 04/20 completed Not Available Not Available Not Available sertralin e 50 mg tablet 10/04 completed Not Available Not Available Not Available doxycycli ne hyclate 100 mg tablet 05/16 /2023 completed Not Available Not Available Not Available Augmentin 500 mg-125 mg tablet Take 1 tablet every 12 hours by oral route for 10 days. active Not Available Not Available No t Available lamotrigi ne 100 mg tablet 09/01 completed Not Available Not Available Not Available phentermi ne 37.5 mg capsule TAKE 1 CAPSULE BY MOUTH ONCE DAILY AFTER COMPLETI NG 15 MG CAPSULES 05/21 completed Not Available Not Available Not Available naproxen 500 mg tablet active Not Available Not Available Not Available amoxicill in 875 mg-potass ium clavulana te 125 mg tablet 02/05 completed Not Available Not Available Not Available Bactrim DS 800 mg-160 mg tablet Take 1 tablet every 12 hours by oral route for 7 days. 11/20 completed Not Available Not Available Not Available escitalop gerard 10 mg tablet TAKE 1 TABLET BY MOUTH EVERY DAY 07/03 completed Not Available Not Available Not Available atomoxeti ne 40 mg capsule TAKE 1 CAPSULE BY MOUTH EVERY DAY 07/03 completed Not Available Not Available Not Available bupropion HCl XL 150 mg 24 hr tablet, extended release active Not Available Not Available Not Available 10/02 (28) 1 mg-20 mcg (21)/75 mg (7) tablet 09/01 completed Not Available Not Available Not Available Lexapro 5 mg tablet Take 1 tablet every day by oral route. 04/07 completed Not Available Not Available Not Available topiramat e 50 mg tablet 09/01 completed Not Available Not Available Not Available nitrofura ntoin monohydra te/macroc rystals 100 mg capsule Take 1 capsule every 12 hours by oral route for 10 days. 01/26 completed Not Available Not Available Not Available omega-3 acid ethyl esters 1 gram capsule TAKE 2 CAPSULES BY MOUTH TWICE DAILY 07/03 completed Not Available Not Available Not Available calcium citrate 500 mg 3 times a day 2021 active Not Available Not Available Not Avai lable 11/03 completed Not Available Not Available Not Available Vyvanse 20 mg capsule Take 1 capsule every day by oral route. active Not Available Not Available No t Available Vitamin D3 125 mcg (5,000 unit) tablet 1 tab po daily. 05/21 completed Not Available Not Available Not Available lidocaine 5 % topical ointment 01/26 completed Not Available Not Available Not Available Vascepa 1 gram capsule TAKE 2 CAPSULES BY MOUTH TWICE DAILY 07/03 completed PA denied Not Available Not Available Not Available Vyvanse 10 mg capsule Take 1 capsule every day by oral route in the morning for 30 days. active Not Available Not Available No t Available [employer] Autoinjec tor 70 mg/mL subcutane ous auto-inje ctor Inject 70 mg every month by subcutan eous route. 07/29 completed Not Available Not Available Not Available Emgality 120 mg/mL subcutane ous syringe Inject 1 mL every month by subcutan eous route. 10/22 completed Not Available Not Available Not Available Bariatric Multivita mins 45 mg iron-800 mcg-120 mcg capsule Take by oral route. 07/29 completed Not Available Not Available Not Available Vitals Date Recorded Body height Body mass index (BMI) Body weight Body temperature Heart rate Respiratory rate Pain severity - 0-10 verbal numeric rating [Score] - Reported Oxygen saturation Oxygen saturation in Arterial blood by Pulse oximetry Systolic blood pressure Diastolic blood pressure Provider Name and Address Organization Details Last Updated DateTime 3 142.24 cm 23.6 kg/m2 18620.6 g 98.2 [degF] 75 /min 16 /min 0 99 % 99 % 100 mm[Hg] 58 mm[Hg] ROSELYN Dhaliwal [facility] [employer] 3 08:50:48 Date Recorded Body height Body mass index (BMI) Body weight Body temperature Heart rate Respiratory rate Oxygen saturation Oxygen saturation in Arterial blood by Pulse oximetry Pain severity - 0-10 verbal numeric rating [Score] - Reported Systolic blood pressure Diastolic blood pressure Provider Name and Address Organization Details Last Updated DateTime 3 142.24 cm 22.5 kg/m2 45140.3 9 g 98.5 [degF] 72 /min 16 /min 99 % 99 % 4 98 mm[Hg] 60 mm[Hg] Shane Scott [facility] [employer] [facility] 3 11:19:21 Date Recorded Body height Body mass index (BMI) Body weight Body temperature Heart rate Respiratory rate Oxygen saturation Oxygen saturation in Arterial blood by Pulse oximetry Pain severity - 0-10 verbal numeric rating [Score] - Reported Systolic blood pressure Diastolic blood pressure Provider Name and Address Organization Details Last Updated DateTime 3 142.24 cm 23.8 kg/m2 23005.1 9 g 97 [degF] 77 /min 16 /min 99 % 99 % 0 108 mm[Hg] 58 mm[Hg] Es Salvador RN [facility] [employer] [facility] 3 14:05:33 Date Recorded Body height Body mass index (BMI) Body weight Body temperature Heart rate Respiratory rate Oxygen saturation Oxygen saturation in Arterial blood by Pulse oximetry Pain severity - 0-10 verbal numeric rating [Score] - Reported Systolic blood pressure Diastolic blood pressure Provider Name and Address Organization Details Last Updated DateTime 3 142.24 cm 24.3 kg/m2 89429.4 3 g 96.9 [degF] 94 /min 16 /min 99 % 99 % 0 116 mm[Hg] 62 mm[Hg] Es Salvador RN [facility] [employer] [facility] 3 08:37:04 Social History Question Answer Notes LastModified by Organization Details LastModified Time Tobacco Smoking Status Never Smoker Not Available [employer] 11/11/2022 01:03:40 Do You Have An Advance Directive? Yes Information not available 01/26/2023 What Is Your Level Of Alcohol Consumption? Occasional Information not available 01/26/2023 Is Blood Transfusion Acceptable In An Emergency? Yes Information not available 01/26/2023 What Is Your Level Of Caffeine Consumption? Occasional [id number] Information not available 11/11/2022 How Much Tobacco Do You Chew? None [id number] Information not available 11/11/2022 What Is Your Code Status? DNR Information not available 01/26/2023 In The 14 Days Before Symptom Onset, Have You Had Close Contact With A Laboratory-conf irmed COVID-19 While That Case Was Ill? No [id number] Information not available 11/11/2022 In The 14 Days Before Symptom Onset, Have You Had Close Contact With A Person Who Is Under Investigation For COVID-19 While That Person Was Ill? No [id number] Information not available 11/11/2022 Are You Currently Employed? Yes Information not available 01/26/2023 What Type Of Diet Are You Following? SPECIFIC Biatric Diet Information not available 01/26/2023 Do You Or Have You Ever Used E-cigarettes Or Vape? 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 4 Information not available 01/26/2023 Have There Been Any Changes To Your Family Or Social Situation? No MIGRATION.360 [id number] Information not available 11/11/2022 Are There Any Guns Present In Your Home? No MIGRATION.379 [id number] Information not available 11/11/2022 Do You Use Insect Repellent Routinely? Yes Information not available 01/26/2023 Where Do You Live? SingleLevelHouse Information not available 01/26/2023 Are You Following A Low Salt Diet? No Information not available 01/26/2023 Do You Have A Medical Power Of Battery Charger Tester? Yes Information not available 01/26/2023 How Many Children Do You Have? 2 Information not available 01/26/2023 Do You Have Any Pets? Yes Information not available 01/26/2023 What Is Your Relationship Status? Single Information not available 04/20/2023 Do You Use Your Seat Belt Or Car Seat Routinely? Yes [id number] Information not available 11/11/2022 Do You Have Smoke And Carbon Monoxide Detectors In Your Home? Yes Information not available 01/26/2023 Are You Passively Exposed To Smoke? No MIGRATION.529 [id number] Information not available 11/11/2022 Do You Or Have You Ever Used Smokeless Tobacco? Never Used Smokeless Tobacco MIGRATION.[id number] [id number] Information not available 11/11/2022 Are There Any Smokers In Your House? No MIGRATION.256 [id number] Information not available 11/11/2022 How Much Tobacco Do You Smoke? No MIGRATION.276 [id number] Information not available 11/11/2022 Do You Participate In Social Media? Yes [id number].000 [id number] Information not available 11/11/2022 What Types Of Sporting Activities Do You Participate In? Walk Information not available 01/26/2023 Do You Feel Stressed (tense, Restless, Nervous, Or Anxious, Or Unable To Sleep At Night)? [id number] Information not available 04/20/2023 Do You Use Any Illicit Or Recreational Drugs? Yes Pot Occasionally Information not available 01/26/2023 Do You Use Sunscreen Routinely? Yes Information not available 01/26/2023 Have You Recently Traveled Abroad? No MIGRATION.366 [id number] Information not available 11/11/2022 Have You Used IV Drugs? No Information not available 01/26/2023 Do You Have Any Dietary Restrictions? Yes Information not available 01/26/2023 Sex: Female Functional Status Question Answer Note LastModified by Organizat ion Details LastModified Time What is your exercise level? Occasional Information not available 01/26/2023 Mental Status None recorded. Family History Relationship Description Onset Age of this Age Resolved Age Notes LastModified by Organization Details LastModified Time Sister Diabetes mellitus [id number] Not available 11/11/2022 01:06:53 Notes:Adopted Medical History Condition Response BLINDNESS N RHEUMATIC FEVER N KIDNEY STONES N BLADDER PROBLEMS N MRSA N OTHER # 1 N POLIO N LUNG DISEASE/DISORDER N HISTORY OF DRUG ABUSE N COPD N RADIATION / CHEMOTHERAPY N Other # 2 N BLOOD DISEASES N SURGERY N EAR OR HEARING PROBLEMS N MUMPS N SHINGLES N BOWEL PROBLEMS N FEMALE PROBLEMS / INFECTIONS N DEPRESSION (INCLUDING POST ) Y STROKE/TIA N THYROID DISEASE N ULCERS N BENIGN PROSTATIC HYPERPLASIA N MEASLES N CERVICALGIA N TB SKIN TEST N HYPOTENSION N MYOCARDIAL INFARCTION N OBESITY N PARAPELGIA N GERD/NAUSEA N ANEURYSM N URINARY/BLADDER/KIDNEY PROBLEMS N CORONARY ARTERY DISEASE (CAD) N MENIERE'S DISEASE N ADDICTION CONCERNS N ENDOMETRIOSIS N USE OF BLOOD THINNERS N SKIN PROBLEMS N EMPHYSEMA N GASTROINTESTINAL DISORDER N MUSCLE,JOINT OR BONE PROBLEMS N GASTROINTESTINAL BLEEDING N BLOOD CLOTS N ASTHMA N CATARACTS N ERECTILE DYSFUNCTION N GI PROBLEMS N CHF N Low Testosterone N NEUROPATHY N INFERTILITY N AIDS/HIV N FRACTURES N CHEMOTHERAPY / RADIATION N VISION/EYE PROBLEMS N LIVER DISEASE N MALE HYPOGONADISM N HYPERTENSION N TOURETTE'S N ANXIETY DISORDER N BLOOD TRANSFUSION N ANEMIA/BLOOD DISORDER N CHRONIC EAR INFECTIONS N BRONCHITIS N TUBERCULOSIS N GLAUCOMA N FOOT PROBLEM N DIVERTICULITIS N CHICKENPOX N SLEEP APNEA N ALLERGIES/HAYFEVER N INFECTIOUS DISEASE N HEART ARRHYTHMIA N PROSTATE N INSOMNIA N HIGH CHOLESTEROL / HYPERLIPIDEMIA N HYPERTHYROIDISM N EYE PROBLEMS N EATING DISORDER N EDEMA N CHRONIC PAIN SYNDROME N CONSTIPATION N CAROTID BLOCKAGE N BACK / NECK PROBLEMS N HAVE YOU BEEN HOSPITALIZED OR SEEN IN [facility] IN THE PAST YEAR ? N ATHEROSCLEROSIS N BREAST PROBLEMS N DIALYSIS N ECZEMA N FIBROMYALGIA N OSTEOPOROSIS N ARTHRITIS N NO SIGNIFICANT PAST MEDICAL HISTORY N APPENDICITIS N DIABETES, TYPE N BAD TEETH N HEARTBURN / REFLUX N ADD/ADHD N AUTISM SPECTRUM DISORDER (ASD) N HEPATITIS / LIVER DISEASE N PULMONARY DISEASE N GOUT N SLEEP DISORDER N ALZHEIMER'S DISEASE N PAIN N HERPES N DEMENTIA N HEADACHES/MIGRAINES N SEIZURES/EPILEPSY N VASCULAR DISEASE N PACEMAKER N DIZZINESS N HEART DISEASE/HEART PROBLEMS N KIDNEY DISEASE N DEVELOPMENTAL OR BEHAVIORAL DISORDERS N MULTIPLE SCLEROSIS N SCARLET FEVER N MENTAL DISORDER/ILLNESS N CARDIAC ARRHYTHMIA N CANCER: SPECIFY N PNEUMONIA N ATRIAL FIBRILLATION N Gall Stones N PULMONARY EMBOLISM N AUTOIMMUNE DISEASE N Gynecological History Statement/Question Response Date of LMP 06/24/2022 STIs/STDs N Date of Last Pap Current Control Method Tubal Ligat ion Most Recent Mammogram Breast Problems no If Post Menopausal, Age at Menopause 27 Date of Last Colonoscopy Most Recent Bone Density Sexually Active? N Menses Monthly Y Discharge no Obstetrics History GPAL:G 2 P 0 0 0 2 Type Value Living 2 Total 2 Immunizations Vaccine Type Date Status Note Provider Nam e and Address Organization Details Recorded Time Tdap 08/15/2018 completed Not Available [facility] 11/11/2022 01:18:37 Influenza, split virus, quadrivalent, PF 08/20/2021 completed Not Available [facility] 01:18:37 Past Encounters Encounter ID Performer Location Encounter Start Date Encounter Closed Date Diagnosis/Indication Diagnosis SNOMED-CT Code Diagnosis ICD10 Code Diagnosis Note [id number] [facility] Ethan [address] [place] [address] 11/19/2020 00:00:00 11/19/2020 12:11:28 [id number] [facility] [address] [address] 12/17/2020 00:00:00 12/17/2020 09:08:39 [id number] [facility] [address] [facility] [place] [address] 01/14/2021 00:00:00 01/14/2021 09:15:02 [id number] _ATHENA_M IGRATION_ DEFAULT_1 _1 , 01/30/2021 00:00:00 01/30/2021 14:17:01 [id number] [facility] [address] [facility] [place] [address] 01/31/2021 00:00:00 01/31/2021 15:47:07 [id number] _ATHENA_M IGRATION_ DEFAULT_1 _1 , 03/06/2021 00:00:00 03/06/2021 13:49:52 [id number] _ATHENA_M IGRATION_ DEFAULT_1 _1 , 04/03/2021 00:00:00 04/03/2021 10:55:12 [id number] _ATHENA_M IGRATION_ DEFAULT_1 _1 , 05/01/2021 00:00:00 05/02/2021 11:37:04 [id number] [facility] [address] [facility] [address] 05/07/2021 00:00:00 05/07/2021 18:12:22 [id number] [facility] [address] [facility] [address] 05/08/2021 00:00:00 05/08/2021 11:20:28 [id number] [facility] [address] [facility] [place] [address] 07/03/2021 00:00:00 07/03/2021 16:47:29 [id number] [facility] [address] [facility] [place] [address] 08/20/2021 00:00:00 08/20/2021 09:22:50 [id number] [facility] [address] [facility] [place] [place] [address] 09/25/2021 00:00:00 09/25/2021 15:09:06 [id number] [facility] [address] [facility] [place] [address] 10/22/2021 00:00:00 10/22/2021 15:55:13 [id number] [facility] [address] [place] [address] 11/05/2021 00:00:00 11/05/2021 09:11:34 [id number] [facility] [address] [facility] [address] 12/31/2021 00:00:00 12/31/2021 08:48:17 [id number] [facility] [address] [place] [address] 02/05/2022 00:00:00 02/05/2022 11:41:48 [id number] [facility] [address] [facility] [place] [address] 03/24/2022 00:00:00 03/24/2022 13:01:59 [id number] [facility] [address] [facility] [place] [address] 07/30/2022 00:00:00 07/31/2022 14:45:44 [id number] [facility] [address] [place] [address] 08/11/2022 00:00:00 08/11/2022 14:02:32 [id number] Es Martin NP [facility] [address] [place] [address] 01/26/2023 08:34:34 01/26/2023 09:25:45 Migraine 92389251 G43.909 Emgality denied. Try for aimovig. Mixed anxi ety and depressive disorder 738028048 F41.8 Fluoxetine 20 mg po daily. Attention deficit hyperactivity disorder, predominantly inattentive type 21788034 F90.0 control anxieties first. [id number] Gonzales Chowdhury MD [place] [address] 03/25/2023 11:01:04 03/25/2023 12:08:40 Lower abdominal pain 77138886 R10.30 Gastroenteritis 69962704 K52.9 Nausea and vomiting 1693 2000 R11.2 History of bypass of stomach 003148880 Z98.84 Mobitz typ e I incomplete atrioventricular block 15979191 I44.1 Near syncope 684764310 R 55 Urinary tr act infectious disease 64876852 N39.0 [id number] [place] [address] 04/20/2023 13:58:16 04/20/2023 14:45:29 Herpes labialis 5858987 B00.1 HSV I and 2Was told positive per OB, but did not show in the blood. Anxiety 02588056 F41.9 Has hallucinat ions when on prozac.Has been on bupropion, hydroxyzin e.Try on buspar. Migraine 80450335 G43.90 9 Emgality denied. Try for aimovig. Attention deficit hyperactivity disorder, predominantly inattentive type 27789364 F90.0 Try on vyvanse 10 mg. [id number] Es Martin NP [place] [address] 1 07/29/2023 08:25:09 07/29/2023 09:13:43 Migraine 20250428 G43.909 Aimovig- on hold for gi. Herpes labialis 7098422 B00.1 HSV I and 2Was told positive per OB, but did not show in the blood. Anxiety 73508111 F41.9 Has hallucinat ions when on prozac.Has been on bupropion, hydroxyzin e, buspar. On hold due to GI. Attention deficit hyperactivity disorder, predominantly inattentive type 68222715 F90.0 Vyvanse 10 mg- on hold due to GI. Health Concerns Section Related Observation LastModified by Organization Detai ls LastModified Time None Recorded Concern Status LastModified by Organization Details LastModified Time None Recorded Advance Directives Directive Y: Payers Encounter Date Sequence Insurance Name Policy Number Policy Drew Covered Member ID Drew Member ID Guarantor Name 01/26/2023 1 [facility] OR AFTER 03/13/21 (MEDICAID REPLACEMENT - HMO) [id number] Vonda Aisha 03/25/2023 1 [facility] ON OR AFTER 03/13/21 (MEDICAID REPLACEMENT - HMO) [facility] [id number] Vonda Leonard 04/20/2023 1 [facility] ON OR AFTER 03/13/21 (MEDICAID REPLACEMENT - HMO) [facility] [id number] Vonda Aisha 07/29/2023 1 [facility] ON OR AFTER 03/13/21 (MEDICAID REPLACEMENT - HMO) [facility] [id number] Vonda Leonard Notes Date Note Type Note Provider Name and Address Organization Details Recorded Time 01/26/2023 text/html Here for depression, anxiety, adhd. States she has been off meds for 1 year.Partner left the house Sep 2022.Unsure cause of anxiety.Has tongue bleeding and teeth lose from pushing on back of teeth. Has been on fluoxetine, trazodone, bupropion, lexapro. Zoloft makes her hallucinate. Hydroxyzine no longer working- has been trying that at home. Weight stable now.Has hysterectomy scheduled for next week.Has been on Sucralfate and causing diarrhea. Has only been on it a few days. Ulcer in stomach. Unsure cause. Es Martin, GINA [address] [facility], [facility] [address], [place], [address], [facility] [employer] 01/26/2023 09:19:49 03/25/2023 text/html ACV: C/o lower central abdominal area pain, nausea, vomiting, diarrhea for last 4-5 days. Pt denies any unusual outside food intake/known sick contact. S/p near passing out yesterday that lasted for few mins. Pt has these type of episodes happened in past too. Pt is f/u with Cardio due to this and she saw them couple months ago and they advised her to come back after 6 months. No meds by them. Pt has gastric bypass done for her wt and she got Lap hysterectomy done 6 weeks ago with her Gyne. Goznales Chowdhury MD [address] [facility], [place], [address], [employer] 03/25/2023 12:06:58 04/20/2023 text/html Here for check u p. Added fish oil.Will be getting panulectomy in June. That will be 18 mo postop. Anxiety- states she was hallucinating and stopped her prozac. Noted son had the same thing going on. Has been ok off the medication. Has issues with motivation and focus. Migraine- Wants to get back on aimovig. Can't have nsaids due to bariatric surgery. Having daily migraine for past 2 weeks. Getting average 7 migraine monthly. Aimovig dropped to 1-3 monthly when on it. Es Martin NP [address] [facility], [facility] [address], [place], [address], [employer] 04/20/2023 14:36:53 07/29/2023 text/html Here for check u p. Patient not on any meds as she has ulcer and GI took her off all meds until further notice. Has another scope on 08/18/23 and hopefully be able to restart meds.Has appt with Dr. Tuttle to discuss about POTS. Anxiety- Stable. Not on meds.ADHD- not on vyvanse- stopped from GI.No sex drive. Not on meds. Hasn't discussed with anyone.Insomnia- restless sleep- melatonin not working.Migraine- Has woke up with a migraine every day since being off aimovig. Worse this past week. Warmer this week and some burning leaves. 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 Had hysterectomy. Es Martin NP [address] [facility], [address], [place], [address], [employer] 07/29/2023 09:10:07 OBGyn Episode No OBEpisode recorded.
--- OUTSIDE RECORDS SUMMARY | 2025-01-04 07:49 | XMS_ITS | Referral Summary ---
Author Organization [facility] [address] Address [address] [place] [address] Care Team Providers Care Home Theatre Technician Name Role Phone Es Martin TRANSLITERATOR Primary Care Provider + Allergies No known active allergies Medications No known medications Active Problems Problem Noted Date Diagnosed Date Preop cardiovascular exam 08/25/2021 Mobitz type 1 second degree AV block 05/08/2020 PVC's (premature ventricular contractions) 05/08 Chest pain 04/10/2020 Palpitations 04/10/2020 Syncope and collapse 04/10/2020 Polydipsia 04/10/2020 Polyuria 04/10/2020 Social History Tobacco Use Types Packs/Day Years Used Date Smoking Tobacco: Never Smokeless Tobacco: Never Alcohol Use Standard Drinks/Week Comments Yes 0 (1 standard drink = 0.6 oz pur e alcohol) AUDIT-C Answer Date Recorded Q1: How often do you have a drink containing alc ohol? Never 04/10/2020 Average Number of Drinks Not on file 020 Frequency of Binge Drinking Not on file 03/14 Comments Unknown Sex and Gender Information Value Date Recorded Sex Assigned at Not on file Legal Sex Female 2:53 PM CDT Gender Identity Not on file Sexual Orientation Not on file Last Filed Vital Signs Vital Sign Reading Time Taken Comments Blood Pressure 98/50 08/31/2024 9:18 AM SURGERY AIDE Pulse 85 08/31/2024 9:18 AM SURGERY AIDE Temperature 36.8 C (98.2 F) 04/30/2020 1:58 PM CDT Respiratory Rate 16 08/25/2021 11:50 AM SURGERY AIDE Oxygen Saturation 98% 08/31/2024 9:18 AM SURGERY AIDE Inhaled Oxygen Concentration - - Weight 49.4 kg (109 lb) 08/31/2024 9:18 AM SURGERY AIDE Height 149.9 cm (4' 11 ) 08/31/2024 9:18 AM SURGERY AIDE Body Mass Index 22.02 08/31/2024 9:18 AM SURGERY AIDE Plan of Treatment Not on file Insurance Care Teams Home Theatre Technician Relationship Specialty Start Date End Date Es Martin NP PCP - General Nurse Practitioner 04/08/20
--- OUTSIDE RECORDS SUMMARY | 2025-01-04 07:49 | XMS_ITS | Clinical Summary ---
Author Organization [facility] [address] Address [address] [place] [address] Care Team Providers Care Drywall Stripper Name Role Phone Es Martin BALL WORKER Primary Care Provider + Allergies No known active allergies Medications No known medications Active Problems Problem Noted Date Diagnosed Date Preop cardiovascular exam 08/25/2021 Mobitz type 1 second degree AV block 05/08/2020 PVC's (premature ventricular contractions) 05/08 Chest pain 04/10/2020 Palpitations 04/10/2020 Syncope and collapse 04/10/2020 Polydipsia 04/10/2020 Polyuria 04/10/2020 Medical History Medical History Date Comments Syncope Chest pain Asthma Social History Tobacco Use Types Packs/Day Years [...] on file Sexual Orientation Not on file Obstetrics History Last Filed Vital Signs Vital Sign Reading Time Taken Comments Blood Pressure 98/50 08/31/2024 9:18 AM FILLING HAND Pulse 85 08/31/2024 9:18 AM FILLING HAND Temperature 36.8 C (98.2 F) 04/30/2020 1:58 PM CDT Respiratory Rate 16 08/25/2021 11:50 AM FILLING HAND Oxygen Saturation 98% 08/31/2024 9:18 AM FILLING HAND Inhaled Oxygen Concentration - - Weight 49.4 kg (109 lb) 08/31/2024 9:18 AM FILLING HAND Height 149.9 cm (4' 11 ) 08/31/2024 9:18 AM FILLING HAND Body Mass Index 22.02 08/31/2024 9:18 AM FILLING HAND Plan of Treatment Health Maintenance Due Date Last Done Comments Cervical Cancer Screening 1995 Depression Screening 1995 Hepatitis C Screening 1995 Regular Well Visit/Exam 18-64 2013 Influenza Vaccine (Season Ended) 2025 08/20/2021 DTaP/Tdap/Td Vaccine (9 - Td or Tdap) 08/26/2028 08/26/2018, 08/15/2018, 04/28/2006, Additional history exists Hepatitis B Screening Completed 02/02/1996 , 01/31/1996, 01/13/1996, Additional history exists HPV Vaccines Completed 03/27/2010, 05/14, 03/22/2009 Varicella Vaccines Completed 06/24/2011, 02/13/1999 Pneumococcal vaccine <65 Aged Out No longer eligible based on patient's age to complete this topic Insurance [facility] Care Teams Drywall Stripper Relationship Specialty Start Date End Date Es Martin NP PCP - General Nurse Practitioner 04/08/20
== END 2025-01-04 07:45 | disposition home or self-care (01) ==
PROVIDERS: PCP Nurse Practitioner Family
DX: R10.32 Left lower quadrant pain (principal)
CPT/HCPCS: 74176

== ENCOUNTER 2025-07-03 00:33 | Day surgery (SDC) | payer OTHER, SELFPAY ==
[2025-06-22 15:16] VITALS: BMI 21.9
[2025-07-03 11:11] VITALS: BP 104/62; PULSE 76; RESP 16; TEMP 36.8; O2SAT 100; BMI 22.2
[2025-07-03] MEDS: SIMETHICONE ORAL SUSPENSION 20 MG/0.3 ML 30 ML BOTTLE 1.8 ML PO (11:26)
[2025-07-03] MEDS: LACTATED RINGERS 1,000 ML 150 ML IV CONT (11:26)
--- NOTE | 2025-07-03 11:40 | WPDANESEPPF ---
Anes - Initial Pre Proc Eval Procedure: Operation Date: 07/03/25 12:30 Proposed Procedures p Esophagogastroduodenoscopy EGD - Al Forman MD Date/Time: 07/03/25 11:40 Surgeon: Al Forman MD Pre Op Diagnosis: Melena, Epigastric pain Patient Data Age: 29 Gender: F Height: 1.52 m Weight: 51.7 kg Last Vital Signs Temp 36.8 C 07/03/25 11:11 Pulse 76 07/03/25 11:11 Resp 16 07/03/25 11:11 BP 104/62 07/03/25 11:11 Pulse Ox 100 07/03/25 11:11 O2 Del Method Room Air 07/03/25 11:11 Allergies Allergy/AdvReac Type Severity Reaction Status Date / Time gadobenic acid (From Allergy Mild Hives Verified 07/03/25 11:10 contrast - MRI) NSAIDS (Non-Steroidal AdvReac Intermediate Gastrointestinal Verified 06/22/25 15:16 Anti-Inflamma Upset phentermine AdvReac Intermediate Palpitation Verified 06/22/25 15:16 s topiramate AdvReac Intermediate Other Verified 06/22/25 15:16 [id number] Antimigraine AdvReac Intermediate Palpitation Verified 06/22/25 15:16 Agents s iohexol (From contrast - CT, AdvReac Mild Hives Verified 06/22/25 15:16 X-RAY) latex AdvReac Mild Rash Verified 06/22/25 15:16 Home Medications ?Medication ?Instructions ?Recorded ?Confirmed ?Type omeprazole 20 mg capsule,delayed 20 mg PO BID #60 caps 04/16/25 05/24/25 Rx release blood-glucose sensor (FreeStyle #2 ea 04/26/25 05/24/25 Rx Sindi 3 Plus Sensor device) acarbose 100 mg tablet 100 mg PO TID #270 tabs 04/30/25 05/24/25 Rx linaclotide 145 mcg capsule 145 mcg Capsule#3 Samples 05/24/25 05/24/25 Sample (Linzess) linaclotide 145 mcg capsule 145 mcg PO DAILY 1 month #30 caps 05/24/25 05/24/25 Rx (Linzess) Patient hx anesthesia problems: none Family hx anesthesia problems: none Results Review: All pre-operative results and documents have been reviewed as part of the pre-operative evaluation. COUNTS INCLUDE 234 BEDS AT THE [facility] Past Medical History Medical History Black stools Nausea Mucus in stool Fecal urgency Alternating constipation and diarrhea Gastric ulcer Hypoglycemia following gastrointestinal surgery Migraine ADHD Can't have extended release forms of meds due to hx bariatric surgery Second degree AV block Palpitation Chest pain Syncope Heartburn Asthma Surgical History Surgical History History of Jose A-en-Y gastric bypass H/O: hysterectomy (~01/2023) H/O section (09/21/18) History of gastric bypass (~2021) S/P (05/26/12) S/P tubal ligation (09/2018) Family History Family History Father Depression Mother Heart disease Diabetes mellitus Depression Sibling Diabetes mellitus Depression Heart disease Other Depression Diabetes mellitus Heart disease Grandparent Depression Heart disease Social History Social History Social History: Very confident with medical forms/assistance with childcare and food in last 12 months 05/31/24 Smoking status: Never smoker Alcohol intake: never Alcohol use details: social Substance use: current Substance use type: marijuana Do You Feel Safe in your Home?: Yes Lack of Transportation: No Lack of Food: Never True Current Housing: I Have Housing Concerned About Future Housing: No Difficulty Paying Gas/Electric Bills: No Difficulty Paying for Meds: No Currently Unemployed: No Education: High School Diploma/GED Difficulty w/ Childcare or Family Care: No Living arrangements: with family Additional living arrangements comments: CHILDREN Occupation/Education: occupation 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 Gender identity (if verbalized by the patient): Female Spiritual care concerns: No Agree to blood products: Yes Anes - Eval Final PreProcedure Day of Procedure 07/03/25 11:40 Patient weight: normal Heart: regular rate and rhythm Lungs: clear to auscultation Airway: Mallampati scale class II Neurological: alert and oriented Last oral intake: >/= 8 hours ASA classification: III Emergent: no Anesthetic plan: proceed Anesthesia type and monitoring: general GIVS and standard monitoring Results Review: All pre-operative results and documents have been reviewed as part of the pre-operative evaluation. Informed Consent: The patient's anesthetic plan and its attendant risks and benefits were discussed with the patient/family/POA. Questions were solicited and answers provided to the satisfaction of the patient/family/POA.
--- NOTE | 2025-07-03 12:50 | PM.IMHP ---
H&P: HPI History of Present Illness Date/Time: 07/03/25 12:50 Chief Complaint: Indigestion-dyspepsia Narrative: The patient is referred for EGD. She had a gastric bypass 4 years ago, and developed apparently anastomotic ulcers. Five 4 months ago she had a follow-up EGD in another institution documenting healing of the ulcers, however she is having abdominal pain and indigestion again. Review of Systems Review of Systems: All systems reviewed & are unremarkable except as noted in HPI and below PMFSH Past Medical History Medical History Black stools Nausea Mucus in stool Fecal urgency Alternating constipation and diarrhea Gastric ulcer Hypoglycemia following gastrointestinal surgery Migraine ADHD Can't have extended release forms of meds due to hx bariatric surgery Second degree AV block Palpitation Chest pain Syncope Heartburn Asthma Surgical History Surgical History History of Jose A-en-Y gastric bypass H/O: hysterectomy (~01/2023) H/O section (09/21/18) History of gastric bypass (~2021) S/P (05/26/12) S/P tubal ligation (09/2018) Family History Family History Father Depression Mother Heart disease Diabetes mellitus Depression Sibling Diabetes mellitus Depression Heart disease Other Depression Diabetes mellitus Heart disease Grandparent Depression Heart disease Social History Social History Social History: Very confident with medical forms/assistance with childcare and food in last 12 months 05/31/24 Smoking status: Never smoker Alcohol intake: never Alcohol use details: social Substance use: current Substance use type: marijuana Do You Feel Safe in your Home?: Yes Lack of Transportation: No Lack of Food: Never True Current Housing: I Have Housing Concerned About Future Housing: No Difficulty Paying Gas/Electric Bills: No Difficulty Paying for Meds: No Currently Unemployed: No Education: High School Diploma/GED Difficulty w/ Childcare or Family Care: No Living arrangements: with family Additional living arrangements comments: CHILDREN Occupation/Education: occupation 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 Gender identity (if verbalized by the patient): Female Spiritual care concerns: No Agree to blood products: Yes Meds Home Medications and Allergies Home Medications ?Medication ?Instructions ?Recorded ?Confirmed ?Type omeprazole 20 mg capsule,delayed 20 mg PO BID #60 caps 04/16/25 05/24/25 Rx release blood-glucose sensor (FreeStyle #2 ea 04/26/25 05/24/25 Rx Sindi 3 Plus Sensor device) acarbose 100 mg tablet 100 mg PO TID #270 tabs 04/30/25 05/24/25 Rx linaclotide 145 mcg capsule 145 mcg Capsule#3 Samples 05/24/25 05/24/25 Sample (Linzess) linaclotide 145 mcg capsule 145 mcg PO DAILY 1 month #30 caps 05/24/25 05/24/25 Rx (Linzess) Allergies Allergy/AdvReac Type Severity Reaction Status Date / Time gadobenic acid (From Allergy Mild Hives Verified 07/03/25 11:10 contrast - MRI) NSAIDS (Non-Steroidal AdvReac Intermediate Gastrointestinal Verified 06/22/25 15:16 Anti-Inflamma Upset phentermine AdvReac Intermediate Palpitation Verified 06/22/25 15:16 s topiramate AdvReac Intermediate Other Verified 06/22/25 15:16 [id number] Antimigraine AdvReac Intermediate Palpitation Verified 06/22/25 15:16 Agents s iohexol (From contrast - CT, AdvReac Mild Hives Verified 06/22/25 15:16 X-RAY) latex AdvReac Mild Rash Verified 06/22/25 15:16 Vital Signs Vital Signs - 24 hr 07/03/25 11:11 Temperature 98.3 F Pulse Rate 76 Respiratory Rate 16 Blood Pressure 104/62 Pulse Oximetry 100 Oxygen Delivery Room Air Exam Const: General: cooperative and healthy appearing Resp: Effort & Inspection: normal respiratory effort and able to speak in complete sentences Auscultation: clear to auscultation bilaterally Cardio: Rate: regular rate Rhythm: regular rhythm GI: Inspection: normal to inspection GI Palp: No No hepatosplenomegaly present Auscultation: normal bowel sounds Rectal Exam: deferred Skin: General skin exam: normal color Psych: Appearance: grossly normal Mental Status: mental status grossly normal Assessment and Plan Assessment and plan (1) History of Jose A-en-Y gastric bypass: Code(s): Z98.84 - Bariatric surgery status Status: Acute Assessment and Plan: The patient is deemed a good candidate for the procedure. Consent signed. Will proceed.
[2025-07-03] MEDS: BENZOCAINE (*SP) 60 ML SPRAY CAN (HURRICAINE) 1 SPRAY MUCOUS MEM (12:51)
--- NOTE | 2025-07-03 12:57 | S_PTH ---
PATIENT: Vonda Orr LOC: [facility] U#:[id number] AGE/SX: 29/F ROOM: RE07/03/[address]: Al Forman MD : [id number] BED: DIS: 07/03/2025 SPEC #: [id number] RECD: 07/03/25 12:59 STATUS: MASOUD REQ #: [id number] CHRISTIN: 07/03/25 12:[address]: Al Forman DEPT: [facility] Surgical RECD BY: Jarred Wolf ENTERED: 07/03/25 12:59 SP TYPE: Surgical OTHR DR: Es Martin, KWASI Tissues: A - Gastric Biopsy Procedures: Hematoxylin and Eosin Stain Gross and Microscopic Level 4
[2025-07-03 12:58] VITALS: BP 85/44; PULSE 71; RESP 17; O2SAT 99
[2025-07-03 13:08] VITALS: BP 85/45; PULSE 76; RESP 27; O2SAT 99
[2025-07-03 13:18] VITALS: BP 113/55; PULSE 73; RESP 17; O2SAT 100
== END 2025-07-03 13:27 | disposition home or self-care (01) ==
PROVIDERS: PCP Nurse Practitioner Family; Referring Provider Nurse Practitioner Family; Visit Provider Internal Medicine Gastroenterology
PROC: 0DJ08ZZ Inspection of Upper Intestinal Tract, Via Natural or Artificial Opening Endoscopic (ICD-10-PCS; CPT 43239; principal; 2025-07-03 12:30)
DX: R10.13 Epigastric pain (principal); R15.2 Fecal urgency; E16.2 Hypoglycemia, unspecified; F90.9 Attention-deficit hyperactivity disorder, unspecified type; I44.1 Atrioventricular block, second degree; R00.2 Palpitations; J45.909 Unspecified asthma, uncomplicated; F12.90 Cannabis use, unspecified, uncomplicated; Z98.890 Other specified postprocedural states; Z98.51 Tubal ligation status; Z98.84 Bariatric surgery status; Z87.11 Personal history of peptic ulcer disease; Z82.49 Family history of ischemic heart disease and other diseases of the circulatory system
CPT/HCPCS: 43239; 88305; J2003; J2704; J7120